=== PATIENT | female | born 1950 | race Caucasian/White ===

== ENCOUNTER 2019-12-16 07:18 | Day surgery (SDC) | payer MEDICARE, BC, SELFPAY ==
[2019-12-13 09:13] VITALS: BMI 35.9
--- NOTE | 2019-12-15 12:58 | HO.ANESPROP2 ---
Documented by User: Casie Huff 12/15/19 13:00 HPI - Anesthesia Eval Consult details Narrative: 69yo F for colonoscopy: screening [facility] Past Medical History Medical History Cancer Diabetes Elevated cholesterol GERD (gastroesophageal reflux disease) Hard of hearing Hx of Lyme disease Thyroid disease Surgical History Surgical History H/O colonoscopy History of esophagogastroduodenoscopy (EGD) History of surgical removal of pilonidal cyst Hx of breast reconstruction Hx of cataract surgery Hx of knee surgery Hx of right mastectomy Social History Social History Smoking Status: Never smoker Use of substances other than those prescribed or required for medical reasons: No Advance Directives Information Provided: No Meds Allergies Allergy/AdvReac Type Severity Reaction Status Date / Time bee pollen [bee stings] Allergy Swelling Verified 12/13/19 09:30 Home Medications Medication Instructions Recorded Confirmed Type atorvastatin 1 tab PO DAILY 12/13/19 12/13/19 History levothyroxine 1 tab PO Q OTHER DAY 12/13/19 12/13/19 History levothyroxine 1 tab PO Q OTHER DAY 12/13/19 12/13/19 History omeprazole 1 cap PO DAILY 12/13/19 12/13/19 History Exam Exam Date and Time: December 15, 2019 1258 Height,Weight and Vital Signs: Height 5 ft 1.5 in Weight 87.543 kg Pertinent Lab Results Pertinent Lab Results: Laboratory Tests 08/19/19 08/19/19 07:10 07:10 WBC 6.9 Hgb 14.4 Hct 43.2 Plt Count 403 H Sodium 139 Potassium 4.6 Chloride 103 BUN 12 Creatinine 0.85 Assessment and Plan Assessment Anesthesia Assessment: Chart Reviewed Documented by User: Idalia Lin 12/16/19 08:43 [facility] Past Medical History Medical History Cancer Diabetes Elevated cholesterol GERD (gastroesophageal reflux disease) Hard of hearing Hx of Lyme disease Thyroid disease Surgical History Surgical History H/O colonoscopy History of esophagogastroduodenoscopy (EGD) History of surgical removal of pilonidal cyst Hx of breast reconstruction Hx of cataract surgery Hx of knee surgery Hx of right mastectomy Social History Social History Smoking Status: Never smoker Use of substances other than those prescribed or required for medical reasons: No Advance Directives Information Provided: No Meds Allergies Allergy/AdvReac Type Severity Reaction Status Date / Time bee pollen [bee stings] Allergy Swelling Verified 12/13/19 09:30 Home Medications Medication Instructions Recorded Confirmed Type atorvastatin 1 tab PO DAILY 12/13/19 12/13/19 History levothyroxine 1 tab PO Q OTHER DAY 12/13/19 12/13/19 History levothyroxine 1 tab PO Q OTHER DAY 12/13/19 12/13/19 History omeprazole 1 cap PO DAILY 12/13/19 12/13/19 History Exam Airway Mallampati Class: I TM Dist: >3cm Neck ROM: Full Denture: Upper Loose/Missing/Broken Teeth: Yes Heart: RRR Lungs: CTA Assessment and Plan Assessment Anesthesia Assessment: Anesthesia Plan Discussed and Chart Reviewed Final Anesthetic Review NPO: Yes ASA Class: II Final Preanesthetic Review: Meds/Allgs Chart Reviewed, Consent Obtained/Reviewed and Anes Risks/Benef Reviewed Patient Risk: Intermediate Procedure Risk: Low Anesthetic Plan Anesthetic Plan: MAC: Disposition: Standard PACU
[2019-12-16 07:51] VITALS: BP 133/92; PULSE 68; RESP 16; TEMP 36.2; O2SAT 99
[2019-12-16 08:00] LABS: Glucose, Whole Blood 102 mg/dL (60-115)
[2019-12-16] MEDS: Lactated Ringers 1,000 ML 100 ML IVCONT (08:09)
[2019-12-16 09:34] VITALS: BP 114/63; PULSE 74; RESP 16; TEMP 36.5; O2SAT 99
--- NOTE | 2019-12-16 09:39 | PM.OP ---
Brief Operative Note Date of procedure: 12/16/19 Pre-op diagnosis: Screening, Hx of adenomas Post-op diagnosis: other (Diverticulosis, Internal Hemorrhoids) Procedure: Colonoscopy to cecum Surgeon: Paul Cyo Anesthesia: MAC Estimated blood loss (mL): 0 Pathology: none sent Condition: stable Disposition: PACU
[2019-12-16 09:47] VITALS: BP 125/73; PULSE 73; RESP 18; O2SAT 99
[2019-12-16 09:56] VITALS: BP 128/77; PULSE 65; RESP 20; O2SAT 99
--- NOTE | 2019-12-16 10:08 | OP_ITS ---
SURGEON: Paul Coy MD INDICATIONS: The patient presents for evaluation of colorectal cancer screening and personal history of tubular adenoma of the colon. Full consent has been obtained from her for this, including risks of bleeding and perforation. PREOPERATIVE DIAGNOSIS: POSTOPERATIVE DIAGNOSIS: PROCEDURE PERFORMED: Colonoscopy to cecum. ESTIMATED BLOOD LOSS: COMPLICATIONS: ANESTHESIA: Monitored anesthesia care. ASSISTANTS: SPECIMENS: PREOPERATIVE DIAGNOSES: Colorectal cancer screening and personal history of tubular adenoma of the colon. POSTOPERATIVE DIAGNOSES: Colorectal cancer screening and personal history of tubular adenoma of the colon, diverticulosis and internal hemorrhoids. DESCRIPTION OF PROCEDURE: The patient was placed in the left lateral decubitus position. The digital rectal exam revealed no abnormalities. The Olympus video pediatric colonoscope was entered into the rectum and advanced to the cecum with the assistance of abdominal wall pressure. Once in the cecum, I did identify normal-appearing cecal pouch with appendiceal orifice and a normal-appearing ileocecal valve. There was transillumination of light deep in the right lower quadrant. The entire cecum and ileocecal valve appeared normal. The scope was slowly withdrawn assessing all mucosal surfaces carefully. Preparation was excellent. I did not visualize any sign of polyps, colitis, nor angiodysplasia. There was a moderate amount of sigmoid diverticulosis. There was a scattering amount of diverticulosis in the ascending colon. In the rectum, scope was retroflexed visualizing internal hemorrhoids, but no other pathology. The rectal mucosa appeared normal. The scope was straightened out and withdrawn from the patient. She tolerated the procedure well and was returned to recovery area in stable condition. IMPRESSION: 1. Diverticulosis. 2. Internal hemorrhoids. PLAN: Given her previous history of tubular adenoma, I would recommend a followup colonoscopy in 5 years for further screening. She will otherwise see me on a p.r.n. basis. MD HODAN Baldwin/BRIAN / [id number]
== END 2019-12-16 10:27 | disposition home or self-care (01) ==
PROVIDERS: PCP Internal Medicine Medical Oncology; Visit Provider Internal Medicine
PROC: 0DJD8ZZ Inspection of Lower Intestinal Tract, Via Natural or Artificial Opening Endoscopic (ICD-10-PCS; CPT 45378; principal; 2019-12-16 08:30)
DX: Z12.11 Encounter for screening for malignant neoplasm of colon (principal); Z86.010 Personal history of colon polyps; K57.30 Diverticulosis of large intestine without perforation or abscess without bleeding; K64.8 Other hemorrhoids; K21.9 Gastro-esophageal reflux disease without esophagitis; E11.9 Type 2 diabetes mellitus without complications; E78.00 Pure hypercholesterolemia, unspecified; Z85.3 Personal history of malignant neoplasm of breast; Z79.899 Other long term (current) drug therapy
CPT/HCPCS: G0105; 82947

== ENCOUNTER 2020-02-29 06:02 | Outpatient (REF) | payer MEDICARE, BC, SELFPAY ==
[2020-02-29 11:16] LABS: MANUAL DIFF FLAG NO
[2020-02-29 11:31] LABS: Basophils Absolute Auto 0.1 X10*3/uL (0.0-0.2); Basophils Percent Auto 0.9 % (0-2); Eosinophils Absolute Auto 0.3 X10*3/uL (0.0-0.4); Eosinophils Percent Auto 4.1 % (0-4); Hemoglobin 14.3 g/dl (12.0-16.0); Imm Gran Abs Auto 0.03 X10*3/uL (0.00-0.03); Imm Gran Pct Auto 0.5 % (0.0-0.4); Lymphocytes Absolute Auto 2.7 X10*3/uL (1.2-4.9); Lymphocytes Percent Auto 41.1 % (20-40); Mean Corpuscular HGB Conc 33.3 g/dl (31.0-35.0); Mean Corpuscular Hemoglobin 31.7 pg (27.0-33.0); Mean Corpuscular Volume 95.3 fL (80-98); Mean Platelet Volume 9.3 fL (9.4-12.3); Monocytes Absolute Auto 0.6 X10*3/uL (0.1-1.2); Monocytes Percent Auto 8.7 % (2-11); Neutrophils Absolute Auto 2.9 X10*3/uL (2.0-8.3); Neutrophils Percent Auto 44.7 % (45-73); Platelet Count 378 X10*3/uL (160-400); Red Blood Count 4.51 X10*6/uL (4.20-5.50); Red Cell Distribution Width 12.4 % (11.0-16.0); White Blood Count 6.5 X10*3/uL (4.8-10.8)
[2020-02-29 12:14] LABS: Free T4 (Free Thyroxine) 0.96 ng/dL (0.71-1.85)
[2020-02-29 12:38] LABS: Alanine Aminotransferase 30 U/L (0-31); Albumin Level 4.4 g/dL (3.5-5.0); Alkaline Phosphatase 89 U/L (39-117); Anion Gap 19 (12-20); Aspartate Amino Transferase 27 U/L (5-31); Bilirubin Total 0.6 mg/dL (0.0-1.0); Blood Urea Nitrogen 14 mg/dL (9-16); Calcium 9.1 mg/dL (8.4-10.2); Carbon Dioxide 21 mmol/L (22-29); Chloride 103 mmol/L (96-108); Cholesterol 189 mg/dL; Estimated Glomerular Filt Rate > 60; Glucose Fasting 121 mg/dL (60-99); HDL Cholesterol 54 mg/dL; LDL Cholesterol Calculated 106 mg/dl; Potassium 5.3 mmol/l (3.3-5.1); Sodium 138 mmol/L (135-145); Total Protein 7.4 g/dL (6.5-8.0); Triglycerides 149 mg/dL
== END 2020-02-29 06:03 | disposition home or self-care (01) ==
LOC: HO.HMGCLDS 06:02
PROVIDERS: PCP Internal Medicine Medical Oncology; Visit Provider Internal Medicine Medical Oncology
DX: M19.90 Unspecified osteoarthritis, unspecified site (principal); E66.01 Morbid (severe) obesity due to excess calories; E78.5 Hyperlipidemia, unspecified
CPT/HCPCS: 36415; 80053; 80061; 84439; 84443; 85025

== ENCOUNTER 2020-07-02 07:01 | Outpatient (REF) | payer MEDICARE, BC, SELFPAY ==
[2020-07-02 11:30] LABS: MANUAL DIFF FLAG NO
[2020-07-02 11:42] LABS: Basophils Absolute Auto 0.1 X10*3/uL (0.0-0.2); Basophils Percent Auto 0.8 % (0-2); Eosinophils Absolute Auto 0.4 X10*3/uL (0.0-0.4); Eosinophils Percent Auto 5.9 % (0-4); Hematocrit 41.6 % (37-47); Hemoglobin 14.1 g/dl (12.0-16.0); Imm Gran Abs Auto 0.02 X10*3/uL (0.00-0.03); Imm Gran Pct Auto 0.3 % (0.0-0.4); Lymphocytes Absolute Auto 2.8 X10*3/uL (1.2-4.9); Lymphocytes Percent Auto 45.1 % (20-40); Mean Corpuscular HGB Conc 33.9 g/dl (31.0-35.0); Mean Corpuscular Hemoglobin 32.6 pg (27.0-33.0); Mean Corpuscular Volume 96.1 fL (80-98); Mean Platelet Volume 9.4 fL (9.4-12.3); Monocytes Absolute Auto 0.5 X10*3/uL (0.1-1.2); Monocytes Percent Auto 8.2 % (2-11); Neutrophils Absolute Auto 2.4 X10*3/uL (2.0-8.3); Neutrophils Percent Auto 39.7 % (45-73); Platelet Count 364 X10*3/uL (160-400); Red Blood Count 4.33 X10*6/uL (4.20-5.50); Red Cell Distribution Width 12.6 % (11.0-16.0); White Blood Count 6.1 X10*3/uL (4.8-10.8)
[2020-07-02 12:06] LABS: Alanine Aminotransferase 28 U/L (0-31); Albumin Level 4.3 g/dL (3.5-5.0); Alkaline Phosphatase 92 U/L (39-117); Anion Gap 15 (12-20); Aspartate Amino Transferase 26 U/L (5-31); Bilirubin Total 0.8 mg/dL (0.0-1.0); Blood Urea Nitrogen 14 mg/dL (9-16); Calcium 9.5 mg/dL (8.4-10.2); Carbon Dioxide 26 mmol/L (22-29); Chloride 105 mmol/L (96-108); Cholesterol 187 mg/dL; Estimated Glomerular Filt Rate > 60; Glucose Fasting 120 mg/dL (60-99); HDL Cholesterol 60 mg/dL; LDL Cholesterol Calculated 104 mg/dl; Potassium 4.7 mmol/L (3.3-5.1); Sodium 141 mmol/L (135-145); Triglycerides 117 mg/dL
[2020-07-02 12:13] LABS: Free T4 (Free Thyroxine) 0.96 ng/dL (0.71-1.85); Thyroid Stimulating Hormone 2.14 uIU/mL (0.32-4.0)
== END 2020-07-02 07:02 | disposition home or self-care (01) ==
LOC: HO.HMGCLDS 07:01
PROVIDERS: PCP Internal Medicine Medical Oncology; Visit Provider Internal Medicine Medical Oncology
DX: M19.90 Unspecified osteoarthritis, unspecified site (principal); K21.9 Gastro-esophageal reflux disease without esophagitis; E66.01 Morbid (severe) obesity due to excess calories; E03.9 Hypothyroidism, unspecified
CPT/HCPCS: 36415; 80053; 80061; 84439; 84443; 85025

== ENCOUNTER 2020-07-13 08:39 | Outpatient (REF) | payer MEDICARE, BC, SELFPAY ==
--- NOTE | ~2020-07-13 | XR_ITS ---
EXAMINATION: XR CHEST CLINICAL INFORMATION: Dyspnea on exertion. COMPARISON: Chest 07/04/2017 TECHNIQUE: 2 views of the chest were obtained. FINDINGS: The lungs are expanded and clear. The heart size and vascularity is normal. There is moderate spondylosis dorsal spine. XR/XR chest 2V IMPRESSION: Unremarkable chest examination.
== END 2020-07-13 08:40 | disposition home or self-care (01) ==
LOC: HO.HMGCX 08:39
PROVIDERS: PCP Internal Medicine Medical Oncology; Visit Provider Internal Medicine Medical Oncology
DX: R06.09 Other forms of dyspnea (principal)
CPT/HCPCS: 71046

== ENCOUNTER 2020-08-01 08:40 | Outpatient (REF) | payer MEDICARE, BC, SELFPAY ==
--- NOTE | 2020-08-01 09:00 | PFT_ITS ---
Forced vital capacity, FEV1, VDE51-74, and MVV are all normal. Post bronchodilator therapy, there is no change. Total lung capacity normal. Residual volume slightly decreased. Diffusion capacity normal. CONCLUSION: Normal pulmonary function test. There is no evidence of obstructive or restrictive pulmonary disorder. Jayson Whittaker MD MSB/MODL / [id number]
== END 2020-08-01 08:41 | disposition home or self-care (01) ==
LOC: HO.RESP 08:40
PROVIDERS: PCP Internal Medicine Medical Oncology; Visit Provider Internal Medicine Medical Oncology
DX: R06.09 Other forms of dyspnea (principal)
CPT/HCPCS: 94060; 94727; 94729

== ENCOUNTER → 2020-09-18 08:14 | Outpatient (REF) | payer MEDICARE, BC, SELFPAY ==
--- NOTE | 2020-09-18 08:30 | CA_ITS ---
Transthoracic Echocardiogram Patient (Last, First, Middle): Khalida Keating L Gender: Female Date of : 1950 Age: 70 Procedure Date: 09/18/2020 Procedure Type: Transthoracic Echocardiogram Location: OP Height: 157.48 cm Weight: 88. kg BSA: 1.89 m2 Heart Rate: bpm BP: 124 / 80 mmHg Development Team Lead: Referring MD: Paul Vela MD Symptoms: R06.09 RUIZ Study Quality: Fair ECG Rhythm: Sinus Conclusions: - The left ventricular systolic function is normal. The visually estimated ejection fraction is between 60-65%. - There is mild calcification of the aortic valve. - There is mild mitral annular calcification. - No obvious valvular pathology seen on this study. Findings Left Ventricle Normal left ventricular cavity size. There is mildly increased left ventricular wall thickness. The left ventricular systolic function is normal. The visually estimated ejection fraction is between 60-65%. There is no evidence of regional wall motion abnormalities. E/E prime ratio is between 8 and 15 consistent with indeterminate filling pressures. Evidence suggests grade I (mild) diastolic dysfunction. Right Ventricle Normal right ventricular cavity size and systolic function. Atria The left atrium is normal in size. The right atrium is normal in size. Aortic Valve The aortic valve was not well visualized. There is mild calcification of the aortic valve. There is no aortic valve stenosis. There is no aortic valve regurgitation. Mitral Valve There is mild mitral annular calcification. There is no mitral valve regurgitation. There is no mitral valve stenosis. Pulmonic Valve The pulmonic valve was not well visualized. Tricuspid Valve There is trace tricuspid valve regurgitation. The pulmonary artery systolic pressure is normal. Great Vessels The asc aorta is normal in size. Venous The inferior vena cava is normal in size and collapses greater than 50% with inspiration. Pericardium/Pleural There is no evidence of pericardial effusion. Prior Study Comparison No prior study available for comparison. Recommendations, Care & Conclusions No obvious valvular pathology seen on this study. Measurements 2D Linear Measurements IVSd: 1.11 0.6-0.9/0.6-1.0 cm LVIDd: 3.91 3.9-5.3/4.2-5.9 cm LVIDd Index: 2.07 2.4-3.2/2.2-3.1 cm/m2 LVIDs: 2.43 2.0-3.6 cm LVPWd: 1.14 0.7-1.1 cm Ao Root: 3.10 2.1-3.5 cm LA Diam: 2.80 2.7-3.8/3.0-4.0 cm LAIDs Index: 1.48 1.5-2.3 cm/m2 LV Mass: 180.93 67-162/88-224 g LV Mass Index: 95.73 43-95/49-115 g/m2 LVOT Diam: 2.00 3.0+(-)1.3 cm Mitral Valve MV Pk E: 0.57 MV PK A: 0.76 MV Decel Time: 232.00 E/A: 0.70 E'Lateral: 5.50 E'Medial: 4.57 E/E' Med: 12.50 E/E' Lat: 10.40 PHT: 68.00 MVA PHT: 3.24 Decel Emmet: 2.49 Aortic Valve AoV Pk Segundo: 1.02 AoV Mn Segundo: 0.71 AoV VTI: 0.22 AoV Pk Grad: 4.00 Aov Mn Grad: 2.00 KATHY Cont.VTI: 2.17 LVOT LVOT Pk Segundo: 0.57 LVOT Mn Segundo: 0.38 LVOT VTI: 0.15 LVOT Pk Grad: 1.00 LVOT Mn Grad: 1.00 LVOT Diam: 2.00 LVOT Area: 3.14 Diastolic Function MV Pk E: 0.57 MV Pk A: 0.76 E/A: 0.70 E'Medial: 4.57 E/E' Med: 12.50 E' Laterial: 5.50 E/E' Lat: 10.40 Tricuspid Valve TR Pk Segundo: 1.81 TR Pk Grad: 13.00 RA Press: 3.00 RVSP: 16.00 Great Vessels Aorta Ao Root-2D: 3.10 2.0-3.7 cm Pulmonary Valve PV Pk Segundo: 1.00 Peak PV Grad: 4.00 Updated in Other Vendor System with Status of Final Jae Suh MD electronically signed on 09/20/2020 12:17:45 PM with status of Final
== END ==
LOC: HO.CARD 08:14
PROVIDERS: PCP Internal Medicine Medical Oncology; Visit Provider Internal Medicine Medical Oncology
DX: R06.09 Other forms of dyspnea (principal)
CPT/HCPCS: 93306

== ENCOUNTER 2020-11-21 06:15 | Outpatient (REF) | payer MEDICARE, BC, SELFPAY ==
[2020-11-21 11:28] LABS: MANUAL DIFF FLAG NO
[2020-11-21 11:40] LABS: Basophils Absolute Auto 0.1 X10*3/uL (0.0-0.2); Basophils Percent Auto 0.7 % (0-2); Eosinophils Absolute Auto 0.3 X10*3/uL (0.0-0.4); Eosinophils Percent Auto 4.7 % (0-4); Hematocrit 41.5 % (37-47); Imm Gran Abs Auto 0.04 X10*3/uL (0.00-0.03); Imm Gran Pct Auto 0.6 % (0.0-0.4); Lymphocytes Absolute Auto 2.6 X10*3/uL (1.2-4.9); Lymphocytes Percent Auto 35.8 % (20-40); Mean Corpuscular HGB Conc 33.7 g/dl (31.0-35.0); Mean Corpuscular Hemoglobin 31.8 pg (27.0-33.0); Mean Corpuscular Volume 94.3 fL (80-98); Mean Platelet Volume 9.6 fL (9.4-12.3); Monocytes Absolute Auto 0.7 X10*3/uL (0.1-1.2); Neutrophils Absolute Auto 3.5 X10*3/uL (2.0-8.3); Neutrophils Percent Auto 48.2 % (45-73); Platelet Count 380 X10*3/uL (160-400); Red Cell Distribution Width 12.2 % (11.0-16.0); White Blood Count 7.2 X10*3/uL (4.8-10.8)
[2020-11-21 12:03] LABS: Alanine Aminotransferase 29 U/L (0-31); Albumin Level 4.3 g/dL (3.5-5.0); Alkaline Phosphatase 89 U/L (39-117); Anion Gap 15 (12-20); Aspartate Amino Transferase 25 U/L (5-31); Bilirubin Total 0.7 mg/dL (0.0-1.0); Blood Urea Nitrogen 11 mg/dL (9-16); Calcium 9.5 mg/dL (8.4-10.2); Carbon Dioxide 25 mmol/L (22-29); Chloride 103 mmol/L (96-108); Cholesterol 171 mg/dL; Estimated Glomerular Filt Rate > 60; Glucose Fasting 137 mg/dL (60-99); HDL Cholesterol 52 mg/dL; LDL Cholesterol Calculated 100 mg/dl; Sodium 138 mmol/L (135-145); Triglycerides 99 mg/dL
[2020-11-21 12:25] LABS: Free T4 (Free Thyroxine) 0.88 ng/dL (0.71-1.85); Thyroid Stimulating Hormone 2.02 uIU/mL (0.32-4.0)
== END 2020-11-21 06:16 | disposition home or self-care (01) ==
LOC: HO.HMGCLDS 06:15
PROVIDERS: PCP Internal Medicine Medical Oncology; Visit Provider Internal Medicine Medical Oncology
DX: E66.01 Morbid (severe) obesity due to excess calories (principal); E03.9 Hypothyroidism, unspecified; E78.5 Hyperlipidemia, unspecified
CPT/HCPCS: 36415; 80053; 80061; 84439; 84443; 85025

== ENCOUNTER 2021-01-18 07:52 | Outpatient (REF) | payer MEDICARE, BC, SELFPAY ==
--- NOTE | ~2021-01-18 | US_ITS ---
EXAMINATION: US ABDOMEN COMPLETE CLINICAL INFORMATION: Abdominal pain. GERD. COMPARISON: None TECHNIQUE: Real-time imaging of the abdominal viscera. Slight technical limitation secondary to patient body habitus and overlying bowel gas. FINDINGS: PANCREAS: Visualized portions of the pancreas are unremarkable, the tail is not well visualized. ABDOMINAL AORTA: The proximal, mid, and distal segments are normal in caliber. INFERIOR VENA CAVA: Visualized portions are normal. LIVER: The liver is normal in size. The liver contour is normal. Increased hepatic echogenicity suggesting hepatic steatosis with regions of focal fatty sparing adjacent to the gallbladder fossa. No focal hepatic lesion. There is no intrahepatic biliary duct dilatation seen. GALLBLADDER: Normal. The gallbladder is physiologically distended without evidence of stones, sludge, polyps, wall thickening or pericholecystic fluid. Sonographic Nieves sign is negative. COMMON BILE DUCT: Normal in caliber measuring 0.5 cm in diameter. RIGHT KIDNEY: Normal. No hydronephrosis. No renal calculi or focal parenchymal lesions. The kidney measures 12.1 cm in maximum dimension. LEFT KIDNEY: Normal. No hydronephrosis. No renal calculi or focal parenchymal lesions. The kidney measures 11.3 cm in maximum dimension. SPLEEN: Normal. The spleen measures 8.7 cm in maximum dimension. FREE FLUID: None. US/US abdomen complete IMPRESSION: Increased hepatic echogenicity suggesting hepatic steatosis with regions of focal fatty sparing adjacent to the gallbladder fossa.
== END 2021-01-18 07:53 | disposition home or self-care (01) ==
LOC: HO.US 07:52
PROVIDERS: PCP Internal Medicine Medical Oncology; Visit Provider Internal Medicine
DX: R10.13 Epigastric pain (principal); K21.9 Gastro-esophageal reflux disease without esophagitis
CPT/HCPCS: 76700

== ENCOUNTER 2021-02-26 06:22 | Outpatient (REF) | payer MEDICARE, BC, SELFPAY ==
[2021-02-26 11:39] LABS: MANUAL DIFF FLAG NO
[2021-02-26 11:45] LABS: Basophils Absolute Auto 0.1 X10*3/uL (0.0-0.2); Basophils Percent Auto 0.9 % (0-2); Eosinophils Absolute Auto 0.3 X10*3/uL (0.0-0.4); Eosinophils Percent Auto 4.5 % (0-4); Hematocrit 42.3 % (37.0-47.0); Hemoglobin 14.3 g/dl (12.0-16.0); Imm Gran Abs Auto 0.03 X10*3/uL (0.00-0.03); Imm Gran Pct Auto 0.5 % (0.0-0.4); Lymphocytes Absolute Auto 2.7 X10*3/uL (1.2-4.9); Mean Corpuscular HGB Conc 33.8 g/dl (31.0-35.0); Mean Corpuscular Hemoglobin 32.2 pg (27.0-33.0); Mean Corpuscular Volume 95.3 fL (80.0-98.0); Mean Platelet Volume 9.8 fL (9.4-12.3); Monocytes Absolute Auto 0.7 X10*3/uL (0.1-1.2); Monocytes Percent Auto 10.8 % (2-11); Neutrophils Absolute Auto 2.6 x10*3/uL (2.0-8.3); Neutrophils Percent Auto 41.3 % (45-73); Platelet Count 352 X10*3/uL (160-400); Red Blood Count 4.44 X10*6/uL (4.20-5.50); Red Cell Distribution Width 12.4 % (11.0-16.0); White Blood Count 6.4 X10*3/uL (4.8-10.8)
[2021-02-26 11:51] LABS: Estimated Average Glucose 126 mg/dL
[2021-02-26 12:05] LABS: Alanine Aminotransferase 32 U/L (0-31); Albumin Level 4.3 g/dL (3.5-5.0); Alkaline Phosphatase 91 U/L (39-117); Anion Gap 11 (12-20); Aspartate Amino Transferase 28 U/L (5-31); Bilirubin Total 0.6 mg/dL (0.0-1.0); Blood Urea Nitrogen 8 mg/dL (9-16); Calcium 9.8 mg/dL (8.4-10.2); Carbon Dioxide 28 mmol/L (22-29); Chloride 105 mmol/L (96-108); Cholesterol 177 mg/dL; Estimated Glomerular Filt Rate > 60; Glucose Fasting 126 mg/dL (60-99); HDL Cholesterol 55 mg/dL; LDL Cholesterol Calculated 102 mg/dl; Potassium 5.2 mmol/L (3.3-5.1); Sodium 139 mmol/L (135-145); Total Protein 7.2 g/dL (6.5-8.0); Triglycerides 101 mg/dL
[2021-02-26 12:32] LABS: Free T4 (Free Thyroxine) 0.94 ng/dL (0.71-1.85); Thyroid Stimulating Hormone 1.76 uIU/mL (0.32-4.0)
== END 2021-02-26 06:23 | disposition home or self-care (01) ==
LOC: HO.HMGCLDS 06:22
PROVIDERS: PCP Internal Medicine Medical Oncology; Visit Provider Internal Medicine Medical Oncology
DX: M19.90 Unspecified osteoarthritis, unspecified site (principal); E66.01 Morbid (severe) obesity due to excess calories; E03.9 Hypothyroidism, unspecified; E78.01 Familial hypercholesterolemia
CPT/HCPCS: 36415; 80053; 80061; 83036; 84439; 84443; 85025

== ENCOUNTER 2021-05-09 06:03 | Outpatient (REF) | payer MEDICARE, BC, SELFPAY ==
[2021-05-09 11:16] LABS: MANUAL DIFF FLAG NO
[2021-05-09 11:22] LABS: Basophils Absolute Auto 0.1 X10*3/uL (0.0-0.2); Basophils Percent Auto 0.6 % (0-2); Eosinophils Absolute Auto 0.3 X10*3/uL (0.0-0.4); Eosinophils Percent Auto 3.1 % (0-4); Hematocrit 41.5 % (37.0-47.0); Hemoglobin 13.7 g/dl (12.0-16.0); Lymphocytes Absolute Auto 2.7 X10*3/uL (1.2-4.9); Lymphocytes Percent Auto 28.3 % (20-40); Mean Corpuscular Hemoglobin 31.3 pg (27.0-33.0); Mean Corpuscular Volume 94.7 fL (80.0-98.0); Mean Platelet Volume 9.5 fL (9.4-12.3); Monocytes Absolute Auto 1.1 X10*3/uL (0.1-1.2); Monocytes Percent Auto 10.9 % (2-11); Neutrophils Absolute Auto 5.4 x10*3/uL (2.0-8.3); Neutrophils Percent Auto 56.1 % (45-73); Platelet Count 405 X10*3/uL (160-400); Red Blood Count 4.38 X10*6/uL (4.20-5.50); Red Cell Distribution Width 12.3 % (11.0-16.0); White Blood Count 9.6 X10*3/uL (4.8-10.8)
[2021-05-09 11:49] LABS: Alanine Aminotransferase 21 U/L (0-31); Albumin Level 4.2 g/dL (3.5-5.0); Alkaline Phosphatase 87 U/L (39-117); Anion Gap 15 (12-20); Aspartate Amino Transferase 18 U/L (5-31); Bilirubin Total 0.9 mg/dL (0.0-1.0); Blood Urea Nitrogen 15 mg/dL (9-16); Calcium 9.6 mg/dL (8.4-10.2); Carbon Dioxide 25 mmol/L (22-29); Chloride 104 mmol/L (96-108); Estimated Glomerular Filt Rate > 60; Glucose Fasting 153 mg/dL (60-99); Potassium 5.2 mmol/L (3.3-5.1); Sodium 139 mmol/L (135-145); Total Protein 7.2 g/dL (6.5-8.0)
[2021-05-09 11:55] LABS: Thyroid Stimulating Hormone 2.39 uIU/mL (0.32-4.0)
== END 2021-05-09 06:04 | disposition home or self-care (01) ==
LOC: HO.HMGCLDS 06:03
PROVIDERS: Visit Provider Internal Medicine Medical Oncology
DX: M19.90 Unspecified osteoarthritis, unspecified site (principal); K21.9 Gastro-esophageal reflux disease without esophagitis; E03.9 Hypothyroidism, unspecified
CPT/HCPCS: 36415; 80053; 84443; 85025

== ENCOUNTER 2021-06-10 09:40 | Outpatient (REF) | payer MEDICARE, BC, SELFPAY ==
[2021-06-10 10:27] LABS: Estimated Average Glucose 128 mg/dL; Hemoglobin A1c % 6.1 %
== END 2021-06-10 09:41 | disposition home or self-care (01) ==
LOC: HO.LAB 09:40
PROVIDERS: PCP Internal Medicine Medical Oncology; Visit Provider Internal Medicine Medical Oncology
DX: E11.9 Type 2 diabetes mellitus without complications (principal)
CPT/HCPCS: 36415; 83036

== ENCOUNTER 2021-10-22 06:03 | Outpatient (REF) | payer MEDICARE, BC, SELFPAY ==
[2021-10-22 11:28] LABS: MANUAL DIFF FLAG NO
[2021-10-22 11:37] LABS: Basophils Absolute Auto 0.1 X10*3/uL (0.0-0.2); Basophils Percent Auto 0.9 % (0-2); Eosinophils Absolute Auto 0.3 X10*3/uL (0.0-0.4); Eosinophils Percent Auto 4.6 % (0-4); Hematocrit 41.9 % (37.0-47.0); Hemoglobin 14.2 g/dl (12.0-16.0); Imm Gran Abs Auto 0.04 X10*3/uL (0.00-0.03); Imm Gran Pct Auto 0.6 % (0.0-0.4); Lymphocytes Absolute Auto 2.5 X10*3/uL (1.2-4.9); Lymphocytes Percent Auto 35.6 % (20-40); Mean Corpuscular HGB Conc 33.9 g/dl (31.0-35.0); Mean Corpuscular Hemoglobin 31.3 pg (27.0-33.0); Mean Corpuscular Volume 92.5 fL (80.0-98.0); Mean Platelet Volume 9.5 fL (9.4-12.3); Monocytes Absolute Auto 0.7 X10*3/uL (0.1-1.2); Monocytes Percent Auto 9.4 % (2-11); Neutrophils Absolute Auto 3.4 x10*3/uL (2.0-8.3); Neutrophils Percent Auto 48.9 % (45-73); Platelet Count 376 X10*3/uL (160-400); Red Blood Count 4.53 X10*6/uL (4.20-5.50); Red Cell Distribution Width 12.7 % (11.0-16.0); White Blood Count 6.9 X10*3/uL (4.8-10.8)
[2021-10-22 12:10] LABS: Estimated Average Glucose 134 mg/dL; Hemoglobin A1c % 6.3 %
[2021-10-22 12:11] LABS: Alanine Aminotransferase 27 U/L (0-31); Albumin Level 4.4 g/dL (3.5-5.0); Alkaline Phosphatase 78 U/L (39-117); Anion Gap 15 (12-20); Aspartate Amino Transferase 24 U/L (5-31); Bilirubin Total 0.9 mg/dL (0.0-1.0); Blood Urea Nitrogen 16 mg/dL (9-16); Calcium 9.7 mg/dL (8.4-10.2); Carbon Dioxide 25 mmol/L (22-29); Chloride 103 mmol/L (96-108); Cholesterol 175 mg/dL; Estimated Glomerular Filt Rate 56; Glucose Random 145 mg/dL (60-115); HDL Cholesterol 52 mg/dL; LDL Cholesterol Calculated 96 mg/dl; Potassium 4.7 mmol/L (3.3-5.1); Sodium 138 mmol/L (135-145); Total Protein 7.1 g/dL (6.5-8.0); Triglycerides 135 mg/dL
[2021-10-22 12:37] LABS: Creatinine Urine 59.01 mg/dL; Microalbum/Creatinine Ratio Ur 25.4 ug/mg cr
== END 2021-10-22 06:04 | disposition home or self-care (01) ==
LOC: HO.HMGCLDS 06:03
PROVIDERS: PCP Internal Medicine Medical Oncology; Visit Provider Internal Medicine Medical Oncology
DX: E03.9 Hypothyroidism, unspecified (principal); E78.5 Hyperlipidemia, unspecified; E11.9 Type 2 diabetes mellitus without complications
CPT/HCPCS: 36415; 80053; 80061; 82043; 83036; 85025

== ENCOUNTER 2022-04-15 06:07 | Outpatient (REF) | payer MEDICARE, BC, SELFPAY ==
[2022-04-15 11:18] LABS: MANUAL DIFF FLAG NO
[2022-04-15 11:21] LABS: Basophils Absolute Auto 0.1 X10*3/uL (0.0-0.2); Basophils Percent Auto 0.7 % (0-2); Eosinophils Absolute Auto 0.2 X10*3/uL (0.0-0.4); Eosinophils Percent Auto 2.5 % (0-4); Hematocrit 41.1 % (37.0-47.0); Hemoglobin 14.1 g/dl (12.0-16.0); Imm Gran Abs Auto 0.04 X10*3/uL (0.00-0.03); Imm Gran Pct Auto 0.5 % (0.0-0.4); Lymphocytes Absolute Auto 2.2 X10*3/uL (1.2-4.9); Lymphocytes Percent Auto 25.2 % (20-40); Mean Corpuscular HGB Conc 34.3 g/dl (31.0-35.0); Mean Corpuscular Hemoglobin 32.6 pg (27.0-33.0); Mean Corpuscular Volume 95.1 fL (80.0-98.0); Mean Platelet Volume 9.6 fL (9.4-12.3); Monocytes Absolute Auto 0.8 X10*3/uL (0.1-1.2); Monocytes Percent Auto 9.1 % (2-11); Neutrophils Absolute Auto 5.4 x10*3/uL (2.0-8.3); Platelet Count 370 X10*3/uL (160-400); Red Blood Count 4.32 X10*6/uL (4.20-5.50); Red Cell Distribution Width 12.3 % (11.0-16.0); White Blood Count 8.6 X10*3/uL (4.8-10.8)
[2022-04-15 11:43] LABS: Alanine Aminotransferase 31 U/L (0-31); Albumin Level 4.3 g/dL (3.5-5.0); Alkaline Phosphatase 85 U/L (39-117); Anion Gap 16 (12-20); Aspartate Amino Transferase 24 U/L (5-31); Bilirubin Total 0.7 mg/dL (0.0-1.0); Blood Urea Nitrogen 13 mg/dL (9-16); Calcium 9.7 mg/dL (8.4-10.2); Carbon Dioxide 23 mmol/L (22-29); Chloride 102 mmol/L (96-108); Cholesterol 185 mg/dL; Estimated Glomerular Filt Rate > 60; Glucose Fasting 144 mg/dL (60-99); HDL Cholesterol 51 mg/dL; LDL Cholesterol Calculated 100 mg/dl; Potassium 4.7 mmol/L (3.3-5.1); Sodium 136 mmol/L (135-145); Total Protein 6.8 g/dL (6.5-8.0); Triglycerides 172 mg/dL
[2022-04-15 11:57] LABS: Estimated Average Glucose 143 mg/dL; Hemoglobin A1c % 6.6 %
[2022-04-15 12:06] LABS: Free T4 (Free Thyroxine) 0.86 ng/dL (0.71-1.85); Thyroid Stimulating Hormone 2.01 uIU/mL (0.32-4.0)
[2022-04-15 12:41] LABS: Creatinine Urine 56.35 mg/dL
== END 2022-04-15 06:08 | disposition home or self-care (01) ==
LOC: HO.HMGCLDS 06:07
PROVIDERS: PCP Internal Medicine Medical Oncology; Visit Provider Internal Medicine Medical Oncology
DX: Z00.00 Encounter for general adult medical examination without abnormal findings (principal); E66.01 Morbid (severe) obesity due to excess calories; E78.5 Hyperlipidemia, unspecified; E11.9 Type 2 diabetes mellitus without complications
CPT/HCPCS: 36415; 80053; 80061; 82043; 83036; 84439; 84443; 85025

== ENCOUNTER 2022-08-29 06:04 | Outpatient (REF) | payer MEDICARE, BC, SELFPAY ==
[2022-08-29 11:32] LABS: MANUAL DIFF FLAG NO
[2022-08-29 11:50] LABS: Basophils Absolute Auto 0.1 X10*3/uL (0.0-0.2); Basophils Percent Auto 0.9 % (0-2); Eosinophils Absolute Auto 0.4 X10*3/uL (0.0-0.4); Eosinophils Percent Auto 5.2 % (0-4); Hematocrit 43.1 % (37.0-47.0); Hemoglobin 14.4 g/dl (12.0-16.0); Imm Gran Abs Auto 0.04 X10*3/uL (0.00-0.03); Imm Gran Pct Auto 0.5 % (0.0-0.4); Lymphocytes Absolute Auto 2.8 X10*3/uL (1.2-4.9); Lymphocytes Percent Auto 37.1 % (20-40); Mean Corpuscular HGB Conc 33.4 g/dl (31.0-35.0); Mean Corpuscular Hemoglobin 31.9 pg (27.0-33.0); Mean Corpuscular Volume 95.6 fL (80.0-98.0); Mean Platelet Volume 9.5 fL (9.4-12.3); Monocytes Absolute Auto 0.8 X10*3/uL (0.1-1.2); Monocytes Percent Auto 10.1 % (2-11); Neutrophils Absolute Auto 3.5 x10*3/uL (2.0-8.3); Neutrophils Percent Auto 46.2 % (45-73); Platelet Count 372 X10*3/uL (160-400); Red Blood Count 4.51 X10*6/uL (4.20-5.50); Red Cell Distribution Width 12.3 % (11.0-16.0); White Blood Count 7.6 X10*3/uL (4.8-10.8)
[2022-08-29 12:46] LABS: Alanine Aminotransferase 31 U/L (0-31); Albumin Level 4.3 g/dL (3.5-5.0); Alkaline Phosphatase 84 U/L (39-117); Anion Gap 14 (12-20); Aspartate Amino Transferase 26 U/L (5-31); Bilirubin Total 0.9 mg/dL (0.0-1.0); Blood Urea Nitrogen 13 mg/dL (9-16); Calcium 9.9 mg/dL (8.4-10.2); Carbon Dioxide 25 mmol/L (22-29); Chloride 103 mmol/L (96-108); Cholesterol 168 mg/dL; Estimated Glomerular Filt Rate > 60; Glucose Fasting 140 mg/dL (60-99); HDL Cholesterol 53 mg/dL; LDL Cholesterol Calculated 92 mg/dl; Potassium 4.8 mmol/L (3.3-5.1); Sodium 137 mmol/L (135-145); Total Protein 7.2 g/dL (6.5-8.0); Triglycerides 119 mg/dL
[2022-08-29 12:53] LABS: Free T4 (Free Thyroxine) 0.96 ng/dL (0.71-1.85); Thyroid Stimulating Hormone 2.26 uIU/mL (0.32-4.0)
== END 2022-08-29 06:05 | disposition home or self-care (01) ==
LOC: HO.HMGCLDS 06:04
PROVIDERS: PCP Internal Medicine Medical Oncology; Visit Provider Internal Medicine Medical Oncology
DX: E66.01 Morbid (severe) obesity due to excess calories (principal); E03.9 Hypothyroidism, unspecified; E78.5 Hyperlipidemia, unspecified; E11.9 Type 2 diabetes mellitus without complications
CPT/HCPCS: 36415; 80053; 80061; 84439; 84443; 85025

== ENCOUNTER 2022-12-09 06:54 | Outpatient (REF) | payer MEDICARE, BC, SELFPAY ==
[2022-12-09 11:33] LABS: MANUAL DIFF FLAG NO
[2022-12-09 11:56] LABS: Basophils Absolute Auto 0.1 X10*3/uL (0.0-0.2); Basophils Percent Auto 1.2 % (0-2); Eosinophils Absolute Auto 0.3 X10*3/uL (0.0-0.4); Eosinophils Percent Auto 3.8 % (0-4); Hematocrit 43.3 % (37.0-47.0); Hemoglobin 14.6 g/dl (12.0-16.0); Imm Gran Abs Auto 0.03 X10*3/uL (0.00-0.03); Imm Gran Pct Auto 0.4 % (0.0-0.4); Lymphocytes Absolute Auto 2.1 X10*3/uL (1.2-4.9); Lymphocytes Percent Auto 30.4 % (20-40); Mean Corpuscular HGB Conc 33.7 g/dl (31.0-35.0); Mean Platelet Volume 9.3 fL (9.4-12.3); Monocytes Absolute Auto 0.6 X10*3/uL (0.1-1.2); Monocytes Percent Auto 8.8 % (2-11); Neutrophils Absolute Auto 3.8 x10*3/uL (2.0-8.3); Neutrophils Percent Auto 55.4 % (45-73); Platelet Count 369 X10*3/uL (160-400); Red Blood Count 4.56 X10*6/uL (4.20-5.50); Red Cell Distribution Width 12.4 % (11.0-16.0); White Blood Count 6.9 X10*3/uL (4.8-10.8)
[2022-12-09 12:13] LABS: Alanine Aminotransferase 29 U/L (0-31); Albumin Level 4.6 g/dL (3.5-5.0); Alkaline Phosphatase 79 U/L (39-117); Anion Gap 15 (12-20); Aspartate Amino Transferase 28 U/L (5-31); Bilirubin Total 0.9 mg/dL (0.0-1.0); Blood Urea Nitrogen 11 mg/dL (9-16); Calcium 9.8 mg/dL (8.4-10.2); Carbon Dioxide 25 mmol/L (22-29); Chloride 102 mmol/L (96-108); Cholesterol 168 mg/dL (<200); Estimated Glomerular Filt Rate > 60; Glucose Fasting 139 mg/dL (60-99); HDL Cholesterol 54 mg/dL (>40); LDL Cholesterol Calculated 84 mg/dL (<100); Potassium 4.8 mmol/L (3.3-5.1); Sodium 137 mmol/L (135-145); Total Protein 7.5 g/dL (6.5-8.0); Triglycerides 150 mg/dL (<150)
== END 2022-12-09 06:55 | disposition home or self-care (01) ==
LOC: HO.HMGCLDS 06:54
PROVIDERS: PCP Internal Medicine Medical Oncology; Visit Provider Internal Medicine Medical Oncology
DX: E66.01 Morbid (severe) obesity due to excess calories (principal); K22.70 Barrett's esophagus without dysplasia; E78.5 Hyperlipidemia, unspecified; E11.9 Type 2 diabetes mellitus without complications
CPT/HCPCS: 36415; 80053; 80061; 85025

== ENCOUNTER 2022-12-19 10:38 | Outpatient (REF) | payer MEDICARE, BC, SELFPAY ==
--- NOTE | ~2022-12-19 | XR_ITS ---
EXAMINATION: Lumbar spine and coccyx and sacrum x-rays CLINICAL INFORMATION: Pain COMPARISON: Previous lumbar spine x-ray most recent April 2012 TECHNIQUE: 3 views of the sacrum and coccyx and 5 views of the lumbar spine FINDINGS: Lumbar spine: There is curvature of the lower lumbar spine to the right. Bone alignment is otherwise normal. No fracture or dislocation. Degenerative spondylosis at T12-L1 and L1-L2. Mild disc space narrowing at L5 S1. Disc spaces are otherwise normal. Lower lumbar spine facet arthritis. No pars defect. Atherosclerotic disease. Sacrum and coccyx: Sclerosis along both sides of the sacroiliac joints suggestive of bilateral symmetric sacroiliitis. Increased from 2013 exam. No erosive changes. No fracture or dislocation. XR/XR lumbar spine 4V min IMPRESSION: Lumbar spine: Degenerative changes. Sacrum and coccyx: Bilateral sacroiliitis
--- NOTE | ~2022-12-19 | XR_ITS ---
EXAMINATION: Lumbar spine and coccyx and sacrum x-rays CLINICAL INFORMATION: Pain COMPARISON: Previous lumbar spine x-ray most recent April 2012 TECHNIQUE: 3 views of the sacrum and coccyx and 5 views of the lumbar spine FINDINGS: Lumbar spine: There is curvature of the lower lumbar spine to the right. Bone alignment is otherwise normal. No fracture or dislocation. Degenerative spondylosis at T12-L1 and L1-L2. Mild disc space narrowing at L5 S1. Disc spaces are otherwise normal. Lower lumbar spine facet arthritis. No pars defect. Atherosclerotic disease. Sacrum and coccyx: Sclerosis along both sides of the sacroiliac joints suggestive of bilateral symmetric sacroiliitis. Increased from 2013 exam. No erosive changes. No fracture or dislocation. XR/XR sacrum coccyx min 2V IMPRESSION: Lumbar spine: Degenerative changes. Sacrum and coccyx: Bilateral sacroiliitis
== END 2022-12-19 10:39 | disposition home or self-care (01) ==
LOC: HO.XRAY 10:38
PROVIDERS: PCP Internal Medicine Medical Oncology; Visit Provider Internal Medicine Medical Oncology
DX: M54.50 Low back pain, unspecified (principal); M53.3 Sacrococcygeal disorders, not elsewhere classified
CPT/HCPCS: 72110; 72220

== ENCOUNTER 2022-12-22 08:56 | Outpatient (REF) | payer MEDICARE, BC, SELFPAY ==
[2022-12-22 12:13] LABS: Appearance Urine Clear; Color Urine Yellow; Glucose Urine UA Negative (Negative); Leukocyte Esterase Urine Trace (Negative); Nitrite Urine Negative (Negative); UMIC TRIGGER UA YES; Urine Blood Negative (Negative); Urine Ketones Negative (Negative); Urine Protein Negative (Neg-Trace)
[2022-12-22 12:19] LABS: Estimated Average Glucose 126 mg/dL
[2022-12-22 12:20] LABS: Bacteria Urine 1+ (None Seen); Hyaline Casts Urine 0-2 /LPF (0-2); RBC Urine 0-2 /HPF (0-2); Squamous Epithelial Cell Urine >20 /HPF (0-2)
== END 2022-12-22 08:57 | disposition home or self-care (01) ==
LOC: HO.HMGCLDS 08:56
PROVIDERS: PCP Internal Medicine Medical Oncology; Visit Provider Internal Medicine Medical Oncology
DX: E11.9 Type 2 diabetes mellitus without complications (principal); R39.9 Unspecified symptoms and signs involving the genitourinary system
CPT/HCPCS: 36415; 81001; 81003; 83036

== ENCOUNTER 2023-01-07 08:42 | Outpatient (REF) | payer MEDICARE, BC, SELFPAY ==
--- NOTE | ~2023-01-07 | MM_ITS ---
EXAMINATION: BONE DENSITOMETRY CLINICAL INDICATION: Age-related osteoporosis without current pathological fracture. COMPARISON: Previous BD dated 08/09/2015 and baseline BD dated 06/16/2006. TECHNIQUE: Using a [employer] DXA System (software version: 13.1) manufactured by [employer], dual-energy x-ray absorptiometry was performed of the lumbar spine and left hip. The images are of good technical quality. Summary results are attached. FINDINGS: AP SPINE L1-L3 (excluding L4): The data of L1-L4 has been changed to exclude the L4 vertebral body, because degenerative sclerosis at this level may cause overestimation of lumbar spine density. Current: BMD 1.273 g/cm2, Z-score 1.7, T-score 0.9, normal, 4.1% increase from previous, 19.9% increase from baseline (<5% change is not significant). Prior: BMD 1.223 g/cm2. Baseline: BMD 1.062 g/cm2. LEFT FEMUR, NECK: Current: BMD 0.870 g/cm2, Z-score 0.0, T-score -1.2, osteopenia. Prior: BMD 0.880 g/cm2. Baseline: BMD 0.938 g/cm2. LEFT FEMUR, TOTAL: Current: BMD 0.964 g/cm2, Z-score 0.5, T-score -0.3, normal, 0.8% increase from previous, 5.5% decrease from baseline (<5% change is not significant). Prior: BMD 0.956 g/cm2. Baseline: BMD 1.020 g/cm2. IDENTIFIED RISK FACTORS: Osteoporosis. Low calcium intake. Menopause. HISTORY OF FRACTURE: None listed. MEDICATIONS: None listed. MM/XR DEXA axial skeleton IMPRESSION: 1. DIAGNOSIS: Osteopenia based on the lowest T-score value of -1.2 in the femoral neck applying World Health Organization criteria. 2. 10-YEAR FRACTURE RISK PREDICTION, FRAX: Major osteoporotic fracture (clinical spine, forearm, hip or shoulder) 8.5%. Hip fracture 1.0%. 3. Treatment Recommendations: NOF guidelines recommend consideration for treatment in postmenopausal women and men age 50 and older presenting with the following: -A hip or vertebral (clinical or morphometric) fracture. -T-score less than or equal to -2.5 at the femoral neck or spine after appropriate evaluation to exclude secondary causes. -Low bone mass at the hip or spine and a 10-year fracture probability by FRAX of greater than or equal to 3% for hip fracture or greater than or equal to 20% for major osteoporotic fracture based on the [place] adapted WHO algorithm. 4. Other Recommendations: All treatment decisions require clinical judgment and consideration of individual patient factors, including patient preferences, comorbidities, previous drug use, risk factors not captured in the FRAX model (e.g. frailty, falls, vitamin D deficiency, increased bone turnover, interval significant decline in bone density) and possible under or overestimation of fracture risk by FRAX. Additional medical evaluation for secondary cause of low bone mineral density may be appropriate. FUTURE SCAN RECOMMENDATION: People with diagnosed cases of osteoporosis or at high risk for fracture should have regular bone mineral density tests. For patients eligible for Medicare, routine testing is allowed once every 2 years. The testing frequency can be increased to one year for patients who have rapidly progressing disease, those who are receiving or discontinuing medical therapy to restore bone mass, or have additional risk factors.
== END 2023-01-07 08:43 | disposition home or self-care (01) ==
LOC: HO.MAMMO 08:42
PROVIDERS: PCP Internal Medicine Medical Oncology; Visit Provider Internal Medicine Medical Oncology
DX: Z13.820 Encounter for screening for osteoporosis (principal); Z78.0 Asymptomatic menopausal state; M81.0 Age-related osteoporosis without current pathological fracture
CPT/HCPCS: 77080

== ENCOUNTER 2023-03-30 06:03 | Outpatient (REF) | payer MEDICARE, BC, SELFPAY ==
[2023-03-30 11:39] LABS: MANUAL DIFF FLAG NO
[2023-03-30 11:47] LABS: Basophils Absolute Auto 0.1 X10*3/uL (0.0-0.2); Basophils Percent Auto 1.3 % (0-2); Eosinophils Absolute Auto 0.4 X10*3/uL (0.0-0.4); Hematocrit 40.5 % (37.0-47.0); Hemoglobin 13.9 g/dl (12.0-16.0); Imm Gran Abs Auto 0.04 X10*3/uL (0.00-0.03); Imm Gran Pct Auto 0.6 % (0.0-0.4); Lymphocytes Absolute Auto 2.5 X10*3/uL (1.2-4.9); Lymphocytes Percent Auto 34.3 % (20-40); Mean Corpuscular HGB Conc 34.3 g/dl (31.0-35.0); Mean Corpuscular Hemoglobin 31.9 pg (27.0-33.0); Mean Corpuscular Volume 92.9 fL (80.0-98.0); Mean Platelet Volume 9.5 fL (9.4-12.3); Monocytes Absolute Auto 0.7 X10*3/uL (0.1-1.2); Monocytes Percent Auto 9.5 % (2-11); Neutrophils Absolute Auto 3.5 x10*3/uL (2.0-8.3); Neutrophils Percent Auto 49.3 % (45-73); Platelet Count 372 X10*3/uL (160-400); Red Blood Count 4.36 X10*6/uL (4.20-5.50); Red Cell Distribution Width 12.6 % (11.0-16.0); White Blood Count 7.2 X10*3/uL (4.8-10.8)
[2023-03-30 12:05] LABS: Estimated Average Glucose 131 mg/dL; Hemoglobin A1c % 6.2 % (<6.0)
[2023-03-30 12:11] LABS: Alanine Aminotransferase 27 U/L (0-31); Albumin Level 4.3 g/dL (3.5-5.0); Alkaline Phosphatase 102 U/L (39-117); Anion Gap 15 (12-20); Aspartate Amino Transferase 22 U/L (5-31); Bilirubin Total 0.4 mg/dL (0.0-1.0); Blood Urea Nitrogen 11 mg/dL (9-16); Calcium 9.8 mg/dL (8.4-10.2); Carbon Dioxide 24 mmol/L (22-29); Chloride 104 mmol/L (96-108); Cholesterol 143 mg/dL (<200); Estimated Glomerular Filt Rate 47; Glucose Fasting 138 mg/dL (60-99); HDL Cholesterol 51 mg/dL (>40); LDL Cholesterol Calculated 76 mg/dL (<100); Sodium 138 mmol/L (135-145); Triglycerides 82 mg/dL (<150)
[2023-03-30 12:29] LABS: Free T4 (Free Thyroxine) 0.87 ng/dL (0.71-1.85); Thyroid Stimulating Hormone 1.82 uIU/mL (0.32-4.0)
== END 2023-03-30 06:04 | disposition home or self-care (01) ==
LOC: HO.HMGCLDS 06:03
PROVIDERS: PCP Internal Medicine Medical Oncology; Visit Provider Internal Medicine Medical Oncology
DX: E03.9 Hypothyroidism, unspecified (principal); E11.9 Type 2 diabetes mellitus without complications; E78.01 Familial hypercholesterolemia
CPT/HCPCS: 36415; 80053; 80061; 83036; 84439; 84443; 85025

== ENCOUNTER 2023-03-31 07:30 | Outpatient (REF) | payer MEDICARE, BC, SELFPAY ==
[2023-03-31 12:07] LABS: Creatinine Urine 78.52 mg/dL; Microalbum/Creatinine Ratio Ur 24.1 ug/mg cr (<30)
== END 2023-03-31 07:31 | disposition home or self-care (01) ==
LOC: HO.HMGCLNP 07:30
PROVIDERS: Visit Provider Internal Medicine Medical Oncology
DX: E03.9 Hypothyroidism, unspecified (principal); E11.9 Type 2 diabetes mellitus without complications; E78.01 Familial hypercholesterolemia
CPT/HCPCS: 82043; 82570

== ENCOUNTER 2023-08-06 06:02 | Outpatient (REF) | payer MEDICARE, BC, SELFPAY ==
[2023-08-06 10:31] LABS: MANUAL DIFF FLAG NO
[2023-08-06 10:38] LABS: Basophils Absolute Auto 0.1 X10*3/uL (0.0-0.2); Basophils Percent Auto 1.1 % (0-2); Eosinophils Absolute Auto 0.4 X10*3/uL (0.0-0.4); Eosinophils Percent Auto 5.7 % (0-4); Hematocrit 40.4 % (37.0-47.0); Hemoglobin 13.5 g/dl (12.0-16.0); Imm Gran Abs Auto 0.04 X10*3/uL (0.00-0.03); Imm Gran Pct Auto 0.5 % (0.0-0.4); Lymphocytes Percent Auto 40.5 % (20-40); Mean Corpuscular HGB Conc 33.4 g/dl (31.0-35.0); Mean Corpuscular Hemoglobin 31.4 pg (27.0-33.0); Mean Platelet Volume 9.1 fL (9.4-12.3); Monocytes Absolute Auto 0.7 X10*3/uL (0.1-1.2); Monocytes Percent Auto 9.3 % (2-11); Neutrophils Absolute Auto 3.2 x10*3/uL (2.0-8.3); Neutrophils Percent Auto 42.9 % (45-73); Platelet Count 359 X10*3/uL (160-400); Red Cell Distribution Width 12.4 % (11.0-16.0); White Blood Count 7.4 X10*3/uL (4.8-10.8)
[2023-08-06 11:42] LABS: Alanine Aminotransferase 28 U/L (0-31); Albumin Level 4.3 g/dL (3.5-5.0); Alkaline Phosphatase 93 U/L (39-117); Anion Gap 14 (12-20); Aspartate Amino Transferase 27 U/L (5-31); Bilirubin Total 0.5 mg/dL (0.0-1.0); Blood Urea Nitrogen 15 mg/dL (9-16); Calcium 9.6 mg/dL (8.4-10.2); Carbon Dioxide 25 mmol/L (22-29); Chloride 102 mmol/L (96-108); Cholesterol 160 mg/dL (<200); Estimated Glomerular Filt Rate > 60; Glucose Fasting 135 mg/dL (60-99); HDL Cholesterol 49 mg/dL (>40); LDL Cholesterol Calculated 91 mg/dL (<100); Potassium 4.6 mmol/L (3.3-5.1); Sodium 136 mmol/L (135-145); Triglycerides 103 mg/dL (<150)
[2023-08-06 11:56] LABS: Free T4 (Free Thyroxine) 0.88 ng/dL (0.71-1.85); Thyroid Stimulating Hormone 2.83 uIU/mL (0.32-4.0)
== END 2023-08-06 06:03 | disposition home or self-care (01) ==
LOC: HO.HMGCLDS 06:02
PROVIDERS: PCP Internal Medicine Medical Oncology; Visit Provider Internal Medicine Medical Oncology
DX: I10 Essential (primary) hypertension (principal); E66.01 Morbid (severe) obesity due to excess calories; E03.9 Hypothyroidism, unspecified; E78.01 Familial hypercholesterolemia
CPT/HCPCS: 36415; 80053; 80061; 84439; 84443; 85025

== ENCOUNTER 2023-12-14 06:03 | Outpatient (REF) | payer MEDICARE, BC, SELFPAY ==
[2023-12-14 10:12] LABS: MANUAL DIFF FLAG NO
[2023-12-14 10:35] LABS: Basophils Absolute Auto 0.1 X10*3/uL (0.0-0.2); Basophils Percent Auto 1.4 % (0-2); Eosinophils Absolute Auto 0.4 X10*3/uL (0.0-0.4); Eosinophils Percent Auto 6.5 % (0-4); Hematocrit 40.4 % (37.0-47.0); Hemoglobin 13.5 g/dl (12.0-16.0); Imm Gran Abs Auto 0.02 X10*3/uL (0.00-0.03); Imm Gran Pct Auto 0.4 % (0.0-0.4); Lymphocytes Absolute Auto 2.3 X10*3/uL (1.2-4.9); Lymphocytes Percent Auto 41.1 % (20-40); Mean Corpuscular HGB Conc 33.4 g/dl (31.0-35.0); Mean Corpuscular Hemoglobin 31.6 pg (27.0-33.0); Mean Corpuscular Volume 94.6 fL (80.0-98.0); Mean Platelet Volume 9.2 fL (9.4-12.3); Monocytes Absolute Auto 0.5 X10*3/uL (0.1-1.2); Neutrophils Absolute Auto 2.4 x10*3/uL (2.0-8.3); Neutrophils Percent Auto 41.6 % (45-73); Platelet Count 371 X10*3/uL (160-400); Red Blood Count 4.27 X10*6/uL (4.20-5.50); Red Cell Distribution Width 12.6 % (11.0-16.0); White Blood Count 5.7 X10*3/uL (4.8-10.8)
[2023-12-14 11:43] LABS: Alanine Aminotransferase 35 U/L (0-31); Albumin Level 4.6 g/dL (3.5-5.0); Alkaline Phosphatase 80 U/L (39-117); Anion Gap 13 (12-20); Aspartate Amino Transferase 40 U/L (5-31); Bilirubin Total 0.6 mg/dL (0.0-1.0); Blood Urea Nitrogen 14 mg/dL (9-16); Calcium 10.1 mg/dL (8.4-10.2); Carbon Dioxide 25 mmol/L (22-29); Chloride 104 mmol/L (96-108); Cholesterol 165 mg/dL (<200); Estimated Glomerular Filt Rate 58; Glucose Fasting 126 mg/dL (60-99); HDL Cholesterol 53 mg/dL (>40); LDL Cholesterol Calculated 84 mg/dL (<100); Potassium 5.1 mmol/L (3.3-5.1); Sodium 137 mmol/L (135-145); Total Protein 7.1 g/dL (6.5-8.0); Triglycerides 144 mg/dL (<150)
[2023-12-14 11:49] LABS: Free T4 (Free Thyroxine) 1.03 ng/dL (0.71-1.85); Thyroid Stimulating Hormone 1.31 uIU/mL (0.32-4.0)
== END 2023-12-14 06:04 | disposition home or self-care (01) ==
LOC: HO.HMGCLDS 06:03
PROVIDERS: PCP Internal Medicine Medical Oncology; Visit Provider Internal Medicine Medical Oncology
DX: I10 Essential (primary) hypertension (principal); K21.9 Gastro-esophageal reflux disease without esophagitis; E66.01 Morbid (severe) obesity due to excess calories; E03.9 Hypothyroidism, unspecified
CPT/HCPCS: 36415; 80053; 80061; 84439; 84443; 85025

== ENCOUNTER 2024-01-05 08:03 | Outpatient (AMB) | payer MEDICARE, BC, SELFPAY ==
[2024-01-05 08:10] VITALS: BP 120/84; PULSE 78; O2SAT 98
--- NOTE | 2024-01-05 08:10 | MHC.OFFWIV ---
Intake Vital Signs 01/05/24 08:10 Weight 193 lb BP 120/84 Blood Pressure Location Rt brachial Position Sitting Pulse 78 Pulse Source Pulse Oximeter Pulse Oximetry (%) 98 Oxygen Delivery Method Room Air Intake Visit Reasons: EP Fall, Lt wrist pain Intake Note: Patient here for a fall and landed on her left wrist and she also has some right shoulder pain Patient Tobacco Use Status: Former Tobacco user Allergies bee pollen [bee stings] Allergy (Verified 01/05/24 08:19) Swelling Do you need a note to return to daycare/school/sports/work: No HPI HPI Comments History of Present Illness Details Patient is a 73-year-old female with 2 complaints, 1st she says she injured her right shoulder about 6 weeks ago it seemed to be getting a little bit better but she still having difficulty putting it behind her back and then raising it over her head. She states when she does yoga and they do shoulder stinson and backwards swimming maneuvers, it is very painful. Her 2nd complaint is that she fell on an outstretched hand on her left hand yesterday. She was pruning some bushes and had her prune or on the ground trying to cut a branch and was pushing very hard when she fell forward on her left hand. She states it hurt and when she went inside she put ice on it and it seems a little bit swollen and painful today. PFSH Medical History Cancer Diabetes Elevated cholesterol GERD (gastroesophageal reflux disease) Hard of hearing Hx of Lyme disease Thyroid disease Surgical History H/O colonoscopy History of esophagogastroduodenoscopy (EGD) History of surgical removal of pilonidal cyst Hx of breast reconstruction Hx of cataract surgery Hx of knee surgery Hx of right mastectomy Social History Patient Tobacco Use Status: Former Tobacco user Review of Systems Const All systems reviewed & are unremarkable except as noted in HPI and below Physical Exam Vital Signs: Last Vital Signs Pulse 78 01/05/24 08:10 BP 120/84 01/05/24 08:10 Pulse Ox 98 01/05/24 08:10 Oxygen Delivery Method Room Air 01/05/24 08:10 Const General: cooperative, healthy appearing, comfortable, no acute distress and well developed Orientation/consciousness: patient oriented x3 Limitations: no limitations HEENT Head: Yes normal to inspection Neck Neck: Yes normal visual inspection and Yes supple Neuro General: patient oriented x3 Assessment & Plan Assessment & Plan (1) Fall: Code(s): W19.XXXA - Unspecified fall, initial encounter Qualifiers: Encounter type: initial encounter Qualified Code(s): W19.XXXA - Unspecified fall, initial encounter (2) Left wrist sprain: Code(s): S63.502A - Unspecified sprain of left wrist, initial encounter Qualifiers: Encounter type: initial encounter Qualified Code(s): S63.502A - Unspecified sprain of left wrist, initial encounter Plan: My initial view of the x-rays does not show a fracture or dislocation. Recommended Aleve, rest, ice, and fitted patient for a wrist splint. Recommended to wear the wrist splint as much as possible over the next couple of weeks and if her pain is not improving, she should follow up with her PCP. Plan See above Orders: Orders XR wrist LT w scaphoid Today W19.XXXA - Unspecified fall, initial encounter Coding Level of Care Code New Pt Level 4 (00953) Diagnoses Fall, initial encounter W19.XXXA Encounter type: initial encounter Sprain of left wrist, initial encounter S63.502A Encounter type: initial encounter
== END 2024-01-05 09:13 | disposition home or self-care (01) ==
PROVIDERS: PCP Internal Medicine Medical Oncology; Visit Provider Physician Assistant
DX: S63.502A Unspecified sprain of left wrist, initial encounter (principal); W19.XXXA Unspecified fall, initial encounter

== ENCOUNTER 2024-01-05 08:45 | Outpatient (REF) | payer MEDICARE, BC, SELFPAY ==
--- NOTE | ~2024-01-05 | XR_ITS ---
EXAMINATION: XR HAND/WRIST, LEFT CLINICAL INFORMATION: Trauma COMPARISON: None available. TECHNIQUE: PA, lateral, oblique, and scaphoid views of the left hand and wrist. FINDINGS: No acute fracture or malalignment. 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 XR/XR hand wrist LT IMPRESSION: No acute fracture or malalignment. Severe osteoarthritis. Electronically signed by: Arnav Abdullahi MD 01/05/2024 10:53 AM EDMON[facility] JESSICA
== END 2024-01-05 08:46 | disposition home or self-care (01) ==
LOC: HO.HMGCX 08:45
PROVIDERS: PCP Internal Medicine Medical Oncology; Visit Provider Physician Assistant
DX: S63.502A Unspecified sprain of left wrist, initial encounter (principal); M25.511 Pain in right shoulder; W19.XXXA Unspecified fall, initial encounter; Y93.9 Activity, unspecified; Y92.9 Unspecified place or not applicable; Y99.9 Unspecified external cause status
CPT/HCPCS: 73110; 73130; 99202

== ENCOUNTER 2024-01-18 06:10 | Outpatient (REF) | payer MEDICARE, BC, SELFPAY ==
[2024-01-18 09:55] LABS: MANUAL DIFF FLAG NO
[2024-01-18 10:00] LABS: Basophils Absolute Auto 0.1 X10*3/uL (0.0-0.2); Basophils Percent Auto 1.3 % (0-2); Eosinophils Absolute Auto 0.2 X10*3/uL (0.0-0.4); Eosinophils Percent Auto 4.1 % (0-4); Hematocrit 38.8 % (37.0-47.0); Hemoglobin 13.1 g/dl (12.0-16.0); Imm Gran Abs Auto 0.03 X10*3/uL (0.00-0.03); Imm Gran Pct Auto 0.6 % (0.0-0.4); Lymphocytes Absolute Auto 2.2 X10*3/uL (1.2-4.9); Lymphocytes Percent Auto 40.4 % (20-40); Mean Corpuscular HGB Conc 33.8 g/dl (31.0-35.0); Mean Corpuscular Volume 94.6 fL (80.0-98.0); Mean Platelet Volume 9.3 fL (9.4-12.3); Monocytes Absolute Auto 0.6 X10*3/uL (0.1-1.2); Monocytes Percent Auto 10.2 % (2-11); Neutrophils Absolute Auto 2.4 x10*3/uL (2.0-8.3); Neutrophils Percent Auto 43.4 % (45-73); Platelet Count 360 X10*3/uL (160-400); Red Cell Distribution Width 12.6 % (11.0-16.0); White Blood Count 5.4 X10*3/uL (4.8-10.8)
[2024-01-18 10:23] LABS: Estimated Average Glucose 128 mg/dL; Hemoglobin A1C 142.4391 umol/L; Hemoglobin A1c % 6.1 % (<6.0); Total Hemoglobin (HGBA1C) 3324.6714 umol/L
[2024-01-18 11:07] LABS: Alanine Aminotransferase 26 U/L (0-31); Albumin Level 4.4 g/dL (3.5-5.0); Alkaline Phosphatase 72 U/L (39-117); Anion Gap 12 (12-20); Aspartate Amino Transferase 29 U/L (5-31); Bilirubin Total 0.7 mg/dL (0.0-1.0); Blood Urea Nitrogen 18 mg/dL (9-16); Calcium 9.9 mg/dL (8.4-10.2); Carbon Dioxide 25 mmol/L (22-29); Chloride 102 mmol/L (96-108); Estimated Glomerular Filt Rate 55; Glucose Fasting 114 mg/dL (60-99); Potassium 4.6 mmol/L (3.3-5.1); Sodium 134 mmol/L (135-145)
[2024-01-18 14:05] LABS: Creatinine Urine 62.06 mg/dL; Microalbum/Creatinine Ratio Ur 33.8 ug/mg cr (<30)
== END 2024-01-18 06:11 | disposition home or self-care (01) ==
LOC: HO.HMGCLDS 06:10
PROVIDERS: PCP Internal Medicine Medical Oncology; Visit Provider Internal Medicine Medical Oncology
DX: I10 Essential (primary) hypertension (principal); E78.01 Familial hypercholesterolemia; E11.9 Type 2 diabetes mellitus without complications
CPT/HCPCS: 36415; 80053; 82043; 82570; 83036; 85025

== ENCOUNTER 2024-01-25 10:22 | Outpatient (REF) | payer MEDICARE, BC, SELFPAY ==
--- NOTE | ~2024-01-25 | XR_ITS ---
EXAMINATION: XR SHOULDER, RIGHT CLINICAL INFORMATION: ACUTE PAIN RIGHT SHOULDER COMPARISON: None available. TECHNIQUE: AP external rotation, Grashey, scapular Y, and axillary views of the right shoulder. 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 Glenoid humeral joint normal. Surrounding bone and soft tissues unremarkable. XR/XR shoulder RT min 2V IMPRESSION: Mild arthrosis of the right shoulder Electronically signed by: Trent Bautista MD 01/25/2024 03:12 PM EDMOND JESSICA
== END 2024-01-25 10:23 | disposition home or self-care (01) ==
LOC: HO.XRAY 10:22
PROVIDERS: PCP Internal Medicine Medical Oncology; Visit Provider Internal Medicine Medical Oncology
DX: M25.511 Pain in right shoulder (principal)
CPT/HCPCS: 73030

== ENCOUNTER 2024-04-15 06:12 | Outpatient (REF) | payer MEDICARE, BC, SELFPAY ==
--- OUTSIDE RECORDS SUMMARY | 2024-04-15 06:14 | XMS_ITS ---
Author Organization [facility] Address [address] [place] [address] Care Team Providers Care Manager Fine Dining Name Role Phone Paul Vela MD Primary Care Provider Unavailab Paul Rios Unavailable [phone] REASON FOR VISIT anal pain Encounters Encounter Location Date Provider Diagnosis [facility] [address] [place] [address] 10/14/2022 Paul Coy PLAN OF TREATMENT No Information
--- OUTSIDE RECORDS SUMMARY | 2024-04-15 06:15 | XMS_ITS ---
Author Organization [facility] Address [address] [place] [address] Care Team Providers Care Container Maker Name Role Phone Paul Vela MD Primary Care Provider UnavailPatricia Ware Unavailable [phone] Allergies No Known Allergies REASON FOR VISIT Painful nail(s) aggravated by shoes causing difficulty standing/walking Medications Medication SIG (Take, Route, Frequency, Duration) Notes Start Date End Date Status Work Note . . . pt is disabled from work until 07/30/15 she may return to work Not-Taking Work Note . . . pt is disabled from work until 07/30/15 she may return to work 07/25/2015 Not-Taking Omeprazole 40 MG as directed Orally Active Work Note . . . patient is disabled from work due to surgery until 09/18/16 Not-Taking Work Note . . . patient may return to full work duties on 10/07/16 09/29/2016 Not-Taking Metamucil Active Valsartan 80 MG 1 tablet Orally Once a day Active glipiZIDE 5 MG 1 tablet 30 minutes before breakfast Orally Once a day Active Levothyroxine Sodium Between 50m g 75mg Active Atorvastatin Calcium 20 MG 1 tablet Orally Once a day Active Social History Tobacco Use: Social History Observation Description Date Details (start date - stop date) Former Smoker NA - NA Tobacco Use/Smoking Question Answer Notes Are you a: former smoker Additional Findings: Tobacco Non-User Current no n-smoker Alcohol Screen Question Answer Notes Did you have a drink contain ing alcohol in the past year? Yes How often did you have a dri nk containing alcohol in the past year? 4 or more times a week (4 points) Points 4 Interpretation Positive Tobacco use other than smoking: Question Answer Notes Are you an other tobacco user? No Vital Signs Height 5ft 2in in 01/13/2024 Weight 197 lbs 01/13/2024 BMI 36.03 kg/m2 01/13/2024 Blood pressure systolic 120 mm Hg 01/13/20 24 Blood pressure diastolic 80 mm Hg 024 Procedures Procedure Date Ordered Date Performed Result Body Sit e 67141-[id number] NAIL, 6 OR MORE 01/13/2024 N/A Encounters Encounter Location Date Provider Diagnosis [facility] [address] [address] 01/13/2024 Patricia Sears Onychomycosis B35.1 ; Pain in right toe(s) M79.674 and Pain in left toe(s) M79.675 Assessments Encounter Date Diagnosis (ICD Code) Assessment Notes Treatment Notes Treatment Clinical Notes Section Notes 01/13/2024 Onychomycosis (ICD-10 - B35.1) 01/13/2024 Pain in right toe(s) (ICD-10 - M79.674) 01/13/2024 Pain in left toe(s) (ICD-10 - M79.675) Plan Of Treatment Pending Test Test Name Order Date [id number] NAIL, 6 OR MORE 01/13/2024 Next Appt Details Follow Up: 3 Months, Reason: Provider Name:Patricia watt, 06/06/2024 10:15:00 AM, [address] [place] [address], [phone], Procedure Notes * Category Sub-Category Detail Notes Debride Nail 6-10 Nail debridement Performance o f this nail treatment by a nonprofessional would put this patients foot and overall health at risk. Therefore, debridement to affected nail(s), as described in exam, was performed extensively to reduce/remove overall nail length, girth, thickness, subungual debris, and necrotic tissue, by manual and/or electrical means through the use of a nail nipper and/or dremel-type cutlery grinder, to a more viable healthy nail plate or bed tissue 6-10. Silver nitrate used for any petechial bleeding as necessary. Definitive antifungal treatment options have been reviewed and discussed with the patient. The patient chooses, no pharmaceutical tx - 35123 Progress Notes * Khalida DAVIS LDOB:1950 (73 yo F)Acc No.[id number]:01/13/2024 Progress Note Patient:?Khalida DAVIS Provider:?Patricia Sears DPM :1950???Age:73 Y???Sex:Female D ate:01/13/2024 Address:[address] [place], [place] [id number] Pcp:Paul Vela MD Subjective: * Chief Complaints: * ???Painful nail(s) aggravate d by shoes causing difficulty standing/walking * HPI: ???Painful Nails:?Pt States Last PCP Visit:?Date:?10/20/2023 * ROS:?General/Constitutional:?Nausea?denies.?Vomiting?denies.?Hunger Thirst?denies.?Loss appetite?denies.?Chills?denies.?Fatigue?admits.?Fever?denies.?Night Sweats?denies.?Unexplained weight loss?admits.?Ophthalmologic:?Blurred vision?denies.?Red eye?denies.?HEENTM:?Dentures?denies.?Dizziness?denies.?Glasses/contacts?admits.?Retinopathy?de nies.?Blurred/double vision?denies.?TMJ?denies.?Discharge/drainage?denies.?Implants?denies.?Hard of hearing admits.?Difficulty chewing/swallowing/speaking?denies.?Nose bleeds?denies.?Sore mouth?denies.?Swollen glands?denies.?Respiratory:?On Oxygen?denies.?Pneumonia/pleurisy?denies.?Bronchitis?denies.?Emphysema?denies.?C oughing?denies.?Cough blood?denies.?Shortness of breath?admits.?Wheezing?denies.?Cardiovascular:?Pacemaker?denies.?MVP?denies.?WPW?denies.?CHF?denies.?Heart attack?denies.?Septal defect?denies.?Rapid beat?denies.?Chest pain ?denies.?Atrial Fib.?denies.?Murmur/Palpitations?denies.?Gastrointestinal:?Hemorrhoids?denies.?Stomach/Abdominal pain?denies.?Dark blood stool?denies.?Irritable bowel ?admits.?Constipation?admits.?Diarrhea?admits.?Vomiting?denies.?Hematology:?Swelling?admits.?Bruising?denies.?Bleeding problem?denies.?Genitourinary:?Blood urine?denies.?Frequent/Painfu/urination/bladder control?denies.?Kidney stones?denies.?Infection (UTI)?denies.?Nephropathy?denies.?Musculoskeletal:?Hammertoes?denies.?Bunions?denies.?Scoliosis/kyphosis?denies.?Muscle cramps / walking?admits.?Generalized aches and pains?admits.?Weakness?admits.?Integ.:?[place]?denies.?Scars?denies.?Corns/calluses?denies.?Ingrown nails?denies.?Painful nails?admits.?Rashes?denies.?Neurologic:?Difficulty sleeping?admits.?Bipolar?denies.?Brain disorder?denies.?Balance trouble?denies.?Confusion?denies.?Fainting/blackouts?denies.?Headache?denies.?Tr emors?denies.? * Medical History:? * Surgical History:?cyst remov al 1971cancer 2000cataract 2016lymph nodes removed * Hospitalization/Major Diagno stic Procedure:?Denies Past Hospitalization * Family History:?Mother: dece ased.?Father: .?Siblings: breast cancer, diagnosed with Other malignant neoplasm of unspecified site.? * Social History:?Tobacco Use:?Tobacco Use/Smoking?Are you a:?former smoker ?Additional Findings: Tobacco Non-User?Current non-smoker ?Tobacco use other than smoking?Are you an other tobacco user??No ???Drugs/Alcohol:?Drugs?Have you used drugs other than those for medical reasons in the past 12 months??No ?Alcohol Screen?Did you have a drink containing alcohol in the past year??Yes ?How often did you have a drink containing alcohol in the past year??4 or more times a week (4 points) ?Points?4 ?Interpretation?Positive ???Miscellaneous:?Caffeine: yes, frequency:24 -30 oz. ?Children: no. ?Exercise: yes, walking,yard work. ?Marital status: single. 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 * Medications:?TakingglipiZIDE 5 MG Tablet 1 tablet 30 minutes before breakfast Orally Once a day Valsartan 80 MG Tablet 1 tablet Orally Once a day Metamucil Atorvastatin Calcium 20 MG Tablet 1 tablet Orally Once a day Levothyroxine Sodium , Notes to Pharmacist: Between 50mg 75mgOmeprazole 40 MG Capsule Delayed Release as directed Orally Taking glipiZIDE 5 MG Tablet 1 tablet 30 minutes before breakfast Orally Once a day Taking Valsartan 80 MG Tablet 1 tablet Orally Once a day Taking Metamucil Taking Atorvastatin Calcium 20 MG Tablet 1 tablet Orally Once a day Taking Levothyroxine Sodium , Notes to Pharmacist: Between 50mg 75mgTaking Omeprazole 40 MG Capsule Delayed Release as directed Orally Not-Taking/PRNWork Note . . . . patient may return to full work duties on 10/07/16 Work Note . . . . patient is disabled from work due to surgery until 09/18/16 Work Note . . . . pt is disabled from work until 07/30/15 she may return to work Work Note . . . . pt is disabled from work until 07/30/15 she may return to work Medication List reviewed and reconciled with the patientNot-Taking/PRN Work Note . . . . patient may return to full work duties on 10/07/16 Not-Taking/PRN Work Note . . . . patient is disabled from work due to surgery until 09/18/16 Not-Taking/PRN Work Note . . . . pt is disabled from work until 07/30/15 she may return to work Not-Taking/PRN Work Note . . . . pt is disabled from work until 07/30/15 she may return to work Medication List reviewed and reconciled with the patient * Allergies:?N.K.D.A.yes[Aller gies Verified] Objective: * Vitals:?Ht:5ft 2in, Wt:197, BMI:36.03, Shoe size:9.5-10, BP:120/80mm Hg, Ht-cm: 157.48 cm, Wt-k.36 kg. * Examination: ???Nails: ?NAILS are:?Elongated, overgrown, dystrophic, lytic, greater than 3mm thick, discolored and friable with crumbly malodorous subungual debris, with pain on palpation, 1-5 B/L.? Assessment: * Assessment: 1.?Pain in right toe(s) - M7 9.674???2.?Onychomycosis - B35.1 (Primary)???3.?Pain in left toe(s) - M79.675??? Plan: * Treatment: * Procedures:?Debride Nail 6-10:?Nail debridement?Performance of this nail treatment by a nonprofessional would put this patients foot and overall health at risk. Therefore, debridement to affected nail(s), as described in exam, was performed extensively to reduce/remove overall nail length, girth, thickness, subungual debris, and necrotic tissue, by manual and/or electrical means through the use of a nail nipper and/or dremel-type cutlery grinder, to a more viable healthy nail plate or bed tissue 6-10. Silver nitrate used for any petechial bleeding as necessary. Definitive antifungal treatment options have been reviewed and discussed with the patient. The patient chooses, no pharmaceutical tx - 32659.? * Procedure Codes:?79416 DEBRI DE NAIL, 6 OR MORE * Follow Up:?3 Months * Images: * Sign off status: Completed true * Provider:?Patricia Sears DPM Date:?1 03/14/2023 Generated for Jess carbajal/Darinel/Kirstiesmitting on:?04/15/2024 06:15 AM EST History and Physical Notes * HPI (History of Present Illness) Category Sub-Category Detail Notes Category Not es Painful Nails Pt States Last PCP Visit: Date:: 10/20/2023 Examination Category Sub-Category Detail Notes Category Not es Nails NAILS are: Elongated, overg rown, dystrophic, lytic, greater than 3mm thick, discolored and friable with crumbly malodorous subungual debris, with pain on palpation, 1-5 B/L
--- OUTSIDE RECORDS SUMMARY | 2024-04-15 06:15 | XMS_ITS ---
Author Organization Paul Vela III, MD Address [address] [place] [address] Care Team Providers Care Homeworker Name Role Phone Paul Vela Primary Care Provider REASON FOR VISIT Needs call back from [...] Date Provider Diagnosis Paul Vela III, MD [address] [place] [address] [place] [address] 01/11/2024 Paul Vela Type 2 diabetes mellitus without complication, without long-term current use of insulin E11.9 Assessments Encounter Date Diagnosis (ICD Code) Assessment Notes Treatment Notes Treatment Clinical Notes 01/11/2024 Type 2 diabetes mellitus without complication, without long-term current use of insulin (ICD-10 - E11.9) Plan Of Treatment Medication Medication Name Sig Start Date Stop Date Notes JrStyle Lite w/Device to be use to kushal [...] E11.9 Diabetes Next Appt Details Provider Name:Paul Vela, 04/25/2024 10:00:00 AM, [address] [place] [address] [address], [place], [phone], Provider Name:Paul Vela, 12/27/2024 09:30:00 AM, [address] [place] [address] [address] [place], [place], [phone], Progress Notes * Amirah KEATINGOB:[birth year] (73 yo F)Acc No.[id number]:01/11/2024 Patient:?Palmer KEATINGise :1950???Age:73 Y???Sex:Female Address:[address] [place] [address], [address] * Refills? Start FreeStyle Lite Kit, w/Device, 1 Kit, [...] days, Refills=3 Subjective: * Chief Complaints: * ???Needs call back from MD * Medical History:? * Surgical History:? * Hospitalization/Major Diagno stic Procedure:? * Medications:? Objective: * Vitals:? * Physical Examination:? Assessment: * Assessment: 1.?Type 2 diabetes mellitus without complication, without long-term current use of insulin - E11.9 (Primary)??? Plan: * Treatment: * Procedure Codes:? * true * Date:? Generated for Jess carbajal/Darinel/eTverasmitting on:?04/15/2024 06:14 AM EST
--- OUTSIDE RECORDS SUMMARY | 2024-04-15 06:16 | XMS_ITS ---
Author Organization [facility] Address [address] [place] [address] Care Team Providers Care Proofsheet Corrector Name Role Phone Paul Vela MD Primary Care Provider Unavailab Patricia Tipton Unavailable [phone] Jovanni Douglas Unavailable [phone] Allergies No Known Allergies REASON FOR VISIT Last Visit PCP: 07/2023 Medications Medication SIG (Take, Route, Frequency, Duration) Notes Start Date End Date Status Metamucil Active Work Note . . . pt is disabled from work until 07/30/15 she may return to work 07/25/2015 Not-Taking Work Note . . . pt is disabled from work until 07/30/15 she may return to work Not-Taking Work Note . . . patient is disabled from work due to surgery until 09/18/16 Not-Taking Valsartan 80 MG 1 tablet Orally Once a day Active Levothyroxine Sodium Between 50m g 75mg Active Omeprazole 40 MG as directed Orally Active Atorvastatin Calcium 20 MG 1 tablet Orally Once a day Active Work Note . . . patient may return to full work duties on 10/07/16 09/29/2016 Not-Taking Social History Tobacco Use: Social History Observation [...] No Vital Signs Height 5ft 2in in 10/08/2023 Weight 197 lbs 10/08/2023 BMI 36.03 kg/m2 10/08/2023 Blood pressure systolic 120 mm Hg 10/08/19 24 Blood pressure diastolic 80 mm Hg 024 Encounters Encounter Location Date Provider Diagnosis [facility] [address] [address] 10/08/2023 Jovanni Douglas Ingrowing nail L60.0 ; Tinea unguium B35.1 ; Metatarsalgia, left foot M77.42 ; Metatarsalgia, right foot M77.41 ; Other hammer toe(s) (acquired), left foot M20.42 ; Other hammer toe(s) (acquired), right foot M20.41 ; Raynaud's disease without gangrene I73.00 ; Localized edema R60.0 ; Plantar fascial fibromatosis M72.2 and Xerosis cutis L85.3 Assessments Encounter Date Diagnosis (ICD Code) Assessment Notes Treatment Notes Treatment Clinical Notes Section Notes 10/08/2023 Ingrowing nail (ICD-10 - L60.0) 10/08/2023 Tinea unguium (ICD-10 - B35.1) 10/08/2023 Metatarsalgia, left foot (ICD-10 - M77.42) 10/08/2023 Metatarsalgia, right foot (ICD-10 - M77.41) 10/08/2023 Other hammer toe(s) (acquired), left foot (ICD-10 - M20.42) 10/08/2023 Other hammer toe(s) (acquired), right foot (ICD-10 - M20.41) 10/08/2023 Raynaud's disease without gangrene (ICD-10 - I73.00) 10/08/2023 Localized edema (ICD-10 - R60.0) 10/08/2023 Plantar fascial fibromatosis (ICD-10 - M72.2) 10/08/2023 Xerosis cutis (ICD-10 - L85.3) Plan Of Treatment Next Appt Details Follow Up: 3 Months, Reason: Provider Name:Patricia Chaudhry shukri, 06/06/2024 10:15:00 AM, [address] [place], [address], Progress Notes * Khalida KEATING LDOB:1950 (73 yo F)Acc No.[id number]:10/08/2023 Progress Note Patient:?Khalida Keating Provider:?Jovanni Douglas DPM :1950???Age:73 Y???Sex:Female D ate:10/08/2023 Address:[address] [place], [place] [id number] Pcp:Paul Vela MD Subjective: * Chief Complaints: * ???Last Visit PCP: 07/2023 * HPI: ???Skin problems:?Nature:?discolored.?Location:?B/L .?Duration:?several months.?Onset/Cause:?gradual, unknown.?Foot Pain:?Nature:?sharp, aching, dull.?Location:?Bottom, Forefoot, B/L, R > L and 2nd toes.?Duration:?several months.?Onset:?unknown.?Course:?intermittent.?Aggravated:?any pressure.?Treatments:?proper shoes and? poor compliance with orthoses; pt has been dehydrated lately.?Severity/Quality:?moderate.? * ROS:?General/Constitutional:?Nausea?denies.?Vomiting?denies.?Hunger Thirst?denies.?Loss appetite?denies.?Chills?denies.?Fatigue?admits.?Fever?denies.?Night Sweats?denies.?Unexplained weight loss?admits.?Ophthalmologic:?Blurred [...] ?Points?4 ?Interpretation?Positive ???Miscellaneous:?Caffeine: yes, frequency:24 -30 oz. ?no Children. ?Exercise: yes, walking,yard work. ?Marital status: single. 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 * Medications:?TakingValsartan 80 MG Tablet 1 tablet Orally Once a dayMetamucil Atorvastatin Calcium 20 MG Tablet 1 tablet Orally Once a dayLevothyroxine Sodium , Notes: Between 50mg 75mgOmeprazole 40 MG Capsule Delayed Release as directed Orally Taking Valsartan 80 MG Tablet 1 tablet Orally Once a dayTaking Metamucil Taking Atorvastatin Calcium 20 MG Tablet 1 tablet Orally Once a dayTaking Levothyroxine Sodium , Notes: Between 50mg 75mgTaking Omeprazole 40 MG Capsule Delayed Release as directed Orally Not-Taking/PRNWork Note . . . . patient may return to full work duties on 10/07/16Work Note . . . . patient is disabled from work due to surgery until 09/18/16Work Note . . . . pt is disabled from work until 07/30/15 she may return to workWork Note . . . . pt is disabled from work until 07/30/15 she may return to workMedication List reviewed and reconciled with the patientNot-Taking/PRN Work Note . . . . patient may return to full work duties on 10/07/16Not-Taking/PRN Work Note . . . . patient is disabled from work due to surgery until 09/18/16Not- Taking/PRN Work Note . . . . pt is disabled from work until 07/30/15 she may return to workNot-Taking/PRN Work Note . . . . pt is disabled from work until 07/30/15 she may return to workMedication List reviewed and reconciled with the patient * Allergies:?N.K.D.A.yes[Meghana aguirre Verified] Objective: * Vitals:?Ht: 5ft 2in, Wt:197, BMI:36.03, Shoe size:9.5-10, BP:120/80 mm Hg. * Examination: ???General Examination: ?GENERAL APPEARANCE:?pleasant, alert, well nourished, well developed, well hydrated, with good attention to hygene/body habitus, and in no acute distress.?ORIENTED:?person,place, and time.?Nails: ?NAILS are:? Elongated, overgrown, dystrophic, lytic, greater than 3mm thick, discolored and friable with crumbly malodorous subungual debris, T5, T7, T9.?Neurological: ?SENSORY:?Neurological exam demonstrates pop plantar 2, 3rd mtpj's johnson.?Vascular: ?DP PULSES:? 02/26, B/L.?PT PULSES:? 02/26, B/L.?CAPILLARY FILL TIME:? delayed, all digits, B/L.?SKIN TEMPERTURE GRADIENT OF THE LOWER EXTERMITIES:? decreased, cool to cold, proximal to distal, B/L.?HAIR GROWTH/TEXTURE/ELASTICITY/TURGOR:? decreased, B/L.?PIGMENTATION:? cyanotic, B/L.?EDEMA:? /, B/L, Feet, Ankle(s), Leg(s).?Dermatologic: ?SKIN FINDINGS:? Skin exam reveals Keratotic lesion(s) located at, Medial plantar, IPJ, TA, T5, Skin shows sign(s) of, dryness, scaling, in a stocking fashion, no fissure(s) present, B/L.?Orthopedic: ?MUSCLE STRENGTH:?5/5 all groups in a symmetrical fashion , B/L.?GAIT ABNORMALITY:? Pronated.?FOOT MORPHOLOGY:? Pes Planus structure, B/L.?DIGITAL DEFORMITIES:? Digital contracture, PIPJ, 2-5 B/L, incompl- reducable to push-up test, no over, nor underlapping.?Ingrown Nail: ?INSPECTION:? Reveals nail incurvation, pain on palpation, groove hypertrophy, groove ischemia, Bilateral nail borders, TA, T5, T7.? 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 Plan: * Treatment: * Procedure Codes:? * Preventive Medicine:? ??Counseling:?Discussion:?-13: Office or other outpatient visit for the evaluation and management of an established patient, which required a medically appropriate history and/or examination and LOW level of DECISION MAKING for: 1 STABLE ACUTE UNCOMPLICATED PROBLEM, 2 OR MORE MINOR PROBLEMS, OR 1 STABLE CHRONIC PROBLEM, THAT POSE(S) A LOW RISK FOR MORBIDITY/MORTALITY. The visit on the day of the encounter encompassed interpreting the data and educating the patient as to the nature of their condition, treatment options available according to their individual PMH, meds, allergies, and overall health/living conditions, as well as any potential risks or complications that may occur from a failure to adhere to, and participate in, the recommended course of therapy. The discussion included a complete verbal, and/or written explanation of the examination results, any x-rays taken, the proposed diagnosis, and outline of the treatment plan. A schedule for future care needs was also explained. The patient verbalized an understanding of the instructions at this time and agreed to be an active participant in their treatment. If the patient should think of any questions or concerns after the visit, I have encouraged the patient to call the office.?Metatarsalgea:?I explained to the patient the possible etiologies of their Metatarsalgea Foot pain, including foot type/shoegear/activity level/exercise routine and the risks/benefits of all the different treatment options for pain including: No treatment at all, Rest, Ice, NSAIDs(only if well tolerated after meals), New/supportive Shoegear, Strappings and Tapings, Foot/Ankle AFO Bracing, Stretching exercises, Deep Tissue Massage, Arch support/shoe inserts, Custom orthoses, Topical analgesics including Aspercream/Voltaren gel, Physical Therapy, Cortisone injection therapy, EPAT/ESWT. Advantages and disadvantages of each option were discussed and the patients questions re: shoegear, custom vs prefabricated inserts, activity level, PO vs Topical medications (and their respective potential complications/drug interactions/side effects), and consistency in home treatment regimens for optimal success were answered to their verbally confirmed satisfaction--rx ronnie cabezas and ina morfin next visit for met pain relief.? * Follow Up:?3 Months * Images: * Sign off status: Completed true * Provider:?Jovanni Douglas DPM Date:? 024 Generated for Jess carbajal/Darinel/Hiramitting on:?04/15/2024 06:15 AM EST History and Physical Notes * HPI (History of Present Illness) Category Sub-Category Detail Notes Category Not es Skin problems Nature: discolored Location: B/L Duration: several months Onset/Cause: gradual, unknown Foot Pain Nature: sharp, aching, dull Location: Bottom, Forefoot, B/ L, R > L and 2nd toes Duration: several months Onset: unknown Course: intermittent Aggravated: any pressure Treatments: proper shoes and poor compliance with orthoses ; pt has been dehydrated lately Severity/Quality: moderate Examination Category Sub-Category Detail Notes Category Not es Ingrown Nail INSPECTION: Reveals nail inc urvation, pain on palpation, groove hypertrophy, groove ischemia, Bilateral nail borders, TA, T5, T7 Neurological SENSORY: Neurological exa m demonstrates pop plantar 2, 3rd mtpj's johnson Dermatologic SKIN FINDINGS: Skin exam reveal s Keratotic lesion(s) located at, Medial plantar, IPJ, TA, T5, Skin shows sign(s) of, dryness, scaling, in a stocking fashion, no fissure(s) present, B/L Orthopedic GAIT ABNORMALITY: Pronated FOOT MORPHOLOGY: Pes Planus structure , B/L DIGITAL DEFORMITIES: Digital contracture , PIPJ, 2-5 B/L, incompl-reducable to push-up test, no over, nor underlapping MUSCLE STRENGTH: 5/5 all groups in a symmetrical fashion , B/L General Examination GENERAL APPEARANCE: pleasant , alert, well nourished, well developed, well hydrated, with good attention to hygene/body habitus, and in no acute distress ORIENTED: person,place, and ti me Vascular DP PULSES (B): 02/26, B/L PT PULSES (B): 02/26, B/L CAPILLARY FILL TIME: delayed, all digits , B/L TEMPERTURE GRADIENT (C): decreased, cool to cold, proximal to distal, B/L TROPHIC CONDITION-TEXTURE/ELASTICITY/TURGOR/HAIR GROWTH (B): decreased, B/L EDEMA (C): 02/26, B/L, Feet, Ankl e(s), Leg(s) PIGMENTATION: cyanotic, B/L Nails NAILS are: Elongated, overg rown, dystrophic, lytic, greater than 3mm thick, discolored and friable with crumbly malodorous subungual debris, T5, T7, T9
--- OUTSIDE RECORDS SUMMARY | 2024-04-15 06:16 | XMS_ITS | Patient Health Record ---
Author Organization [facility] Address [address] [place] [address] Care Team Providers Care Steel Engraver Name Role Phone Paul Vela MD Primary Care Provider Unavailab Paul Rios Unavailable [phone] ALLERGIES No Known Allergies REASON FOR REFERRAL No Information MEDICATIONS Medication SIG (Take, Route, Frequency, Duration) Notes Start Date End Date Status Metamucil Fiber 51.7 % as directed Orally Active Levothyroxine Sodium 50-75mg 1 capsule O rally Once a day Active Atorvastatin Calcium 40 MG 1/2 tablet Or ally Once a day Active Omeprazole 40 MG 1 capsule 30 minutes before morning meal Orally Once a day Active Tylenol PM Extra Strength Active tylenol Active IMMUNIZATIONS Vaccine Route Administration Date Status Comme nts Influenza Unknown 10/24/2018 Administered Influenza Unknown 12/05/2020 Administered SOCIAL HISTORY Sex Assigned At : Social History Observation Description Sex Assigned At Unknown PROBLEMS Problem Type ICD Code Onset Dates Problem Status W/U Status Risk SNOMED Code Notes Problem Encounter for screening for malignant neoplasm of colon (Z12.11) Active confirmed 978299555 Problem History of adenomatous polyp of colon (Z86.010) Active confirmed 177957479 Problem Abdominal pain, epigastric (R10.13) Active confirmed 67264333 Problem Preprocedural examination (Z01.818) Active confirmed 113014091053429 Problem Gastroesophageal reflux disease, esophagitis presence not specified (K21.9) Active confirmed 236461543 Problem Hiatal hernia (K44.9) Active confirmed 93832988 Problem Rectal pain (K62.89) Active confirmed 34432420 Problem Constipation, unspecified constipation type (K59.00) Active confirmed 14923408 Problem Gastroesophageal reflux disease, unspecified whether esophagitis present (K21.9) Active confirmed 965983169 PLAN OF TREATMENT Pending Test Test Name Order Date US ABD 12/28/2020 Future Test Test Name Order Date COLONOSCOPY 08/03/2014 COLONOSCOPY 10/13/2019 Insurance Providers Payer Name Payer Address Payer Phone Subscriber Number Group Number Insured Name Patient Relationship to Insured Coverage Start Date Coverage End Date MEDICARE OF [place] [address] [place] [address] [id number] TAYLOR DAVIS Self - patient is the insured [facility] [address] [place], [place] [id number] [phone] [id number] TAYLOR DAVIS Self - patient is the insured MEDICAL (GENERAL) HISTORY Medical History History ICD Code Colonoscopy in 2003 with a t ubular adenoma removed and 04/2009 with a hyperplastic polyp--sigmoid diverticulosis and internal hemorrhoids Upper endo in 04/2009 with er osive esoophagitis and Perez's--F/U EGD in 11/2009 neg esophagitis and Bx neg for Perez's--she does have a large hiatal hernia. 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
--- OUTSIDE RECORDS SUMMARY | 2024-04-15 06:16 | XMS_ITS ---
Author Organization [facility] Address [address] [place] [address] Care Team Providers Care Cardiothoracic Surgeon Name Role Phone Paul Vela MD Primary Care Provider Unavailab Paul Rios Unavailable [phone] ALLERGIES No Known Allergies REASON FOR VISIT patient presents today for Anal pain MEDICATIONS Medication SIG (Take, Route, Frequency, Duration) [...] Tylenol PM Extra Strength Active tylenol Active PROBLEMS Problem Type ICD Code Onset Dates Problem Status W/U Status Risk SNOMED Code Notes Problem Rectal pain (K62.89) Active confirmed 37937168 VITAL SIGNS BMI 36.43 kg/m2 10/16/2022 Blood pressure systolic 000 mm Hg 10/17/19 23 Blood pressure diastolic 00 mm Hg 023 Height 61.5 in 10/16/2022 Temperature 97.2 degrees Fahrenheit 10/17/19 23 Weight 196 lbs 10/16/2022 Encounters Encounter Location Date Provider [facility] [address] [place] [address] 10/16/2022 Paul Coy Rectal pain K62.89 ASSESSMENTS Encounter Date Diagnosis Assessment Notes Treatment Notes Treatment Clinical Notes 10/16/2022 Rectal pain (ICD-10 - K62.89) Start an Anusol or Preparation H suppository every night at bedtime for at least 1 week, and then as needed, Continue Metamucil daily. If the pain persists you will need a referral to see Dr. Baez, a Colorectal surgeon, so he can check for a fissure . Otherwise, I will see you in 11/2024 for your next colonoscopy. PLAN OF TREATMENT Treatment Notes Assessment Notes Rectal pain Start an Anusol or Preparation H suppository every night at bedtime for at least 1 week, and then as needed, Continue Metamucil daily. If the pain persists you will need a referral to see Dr. Baez, a Colorectal surgeon, so he can check for a fissure . Otherwise, I will see you in 11/2024 for your next colonoscopy. Next Appt Details Follow Up: prn, Reason: Progress Notes * Examination Category Sub-Category Detail Notes General Examination GENERAL APPEARANCE: pleasant , well nourished, well developed, in no acute distress EYES: sclera non-icteric NECK/THYROID: no cervical lymphade nopathy, neck supple HEART: S1, S2 normal LUNGS: clear to auscultatio n bilaterally ABDOMEN: normal bowel sounds, no guarding or rigidity, no hepatosplenomegaly, no masses palpable, soft, nontender, nondistended. NEUROLOGIC: alert and oriented SKIN: nonjaundiced, no spi jorgito angiomata. EXTREMITIES: no edema RECTAL EXAM: The perianal area wa s examined and there was no sign of any type of fistula, tenderness, redness, fluctuance, nor drainage. A digital exam was not done but the anal canal was not tender at all. There was no obvious fissure visible. ORAL CAVITY: mucosa moist
--- OUTSIDE RECORDS SUMMARY | 2024-04-15 06:16 | XMS_ITS ---
Author Organization [facility] Address [address] [place] [address] Care Team Providers Care Tester/Lift Trucker Name Role Phone Paul Vela MD Primary Care Provider Unavailab Paul Rios Unavailable [phone] REASON FOR VISIT Pt no show Encounters Encounter Location Date Provider Diagnosis [facility] [address] [place] [address] 10/14/2022 Paul Coy PLAN OF TREATMENT No Information
--- OUTSIDE RECORDS SUMMARY | 2024-04-15 06:16 | XMS_ITS ---
Author Organization [facility] Address [address] [place] [address] Care Team Providers Care Machine Ii Coremaker Name Role Phone Paul Vela MD Primary Care Provider Unavailab Patricia Tipton Unavailable [phone] Jovanni Douglas Unavailable [phone] Allergies No Known Allergies REASON FOR VISIT Last Visit PCP: 04/2023 Medications Medication SIG (Take, Route, Frequency, Duration) Notes Start Date End Date Status Work Note . . . patient may return to full work duties on 10/07/16 09/29/2016 Not-Taking Work Note . . . patient is disabled from work due to surgery until 09/18/16 Not-Taking Omeprazole 40 MG as directed Orally Active Work Note . . . pt is disabled from work until 07/30/15 she may return to work 07/25/2015 Not-Taking Work Note . . . pt is disabled from work until 07/30/15 she may return to work Not-Taking Atorvastatin Calcium 20 MG 1 tablet Orally Once a day Active Valsartan 80 MG 1 tablet Orally Once a day Active Metamucil Active Levothyroxine Sodium Between 50m g 75mg Active Social History Tobacco Use: Social History [...] No Vital Signs Height 5ft 2in in 07/06/2023 Weight 197 lbs 07/06/2023 BMI 36.03 kg/m2 07/06/2023 Blood pressure systolic 120 mm Hg 07/06/19 24 Blood pressure diastolic 80 mm Hg 024 Encounters Encounter Location Date Provider Diagnosis [facility] [address] [address] 07/06/2023 Jovanni Douglas Ingrowing nail L60.0 ; Tinea [...] Treatment Notes Treatment Clinical Notes Section Notes 07/06/2023 Ingrowing nail (ICD-10 - L60.0) 07/06/2023 Tinea unguium (ICD-10 - B35.1) 07/06/2023 Metatarsalgia, left foot (ICD-10 - M77.42) 07/06/2023 Metatarsalgia, right foot (ICD-10 - M77.41) 07/06/2023 Other hammer toe(s) (acquired), left foot (ICD-10 - M20.42) 07/06/2023 Other hammer toe(s) (acquired), right foot (ICD-10 - M20.41) 07/06/2023 Raynaud's disease without gangrene (ICD-10 - I73.00) 07/06/2023 Localized edema (ICD-10 - R60.0) 07/06/2023 Plantar fascial fibromatosis (ICD-10 - M72.2) 07/06/2023 Xerosis cutis (ICD-10 - L85.3) Plan Of Treatment Next Appt Details Follow Up: 3 Months, Reason: Provider Name:Patricia Chaudhry shukri, 06/06/2024 10:15:00 AM, [address] [place], [address], Progress Notes * Khalida KEATING LDOB:1950 (73 yo F)Acc No.[id number]:07/06/2023 Progress Note Patient:?Khalida Keating Provider:?Jovanni Douglas DPM :1950???Age:73 Y???Sex:Female D ate:07/06/2023 Address:[address] [place], [place] [id number] Pcp:Paul Vela MD Subjective: * Chief Complaints: * ???Last Visit PCP: 04/2023 * HPI: ???Skin problems:?Nature:?discolored.?Location:?B/L .?Duration:?several months.?Onset/Cause:?gradual, unknown.?Foot Pain:?Nature:?cramping, tenderness, numbness.?Location:?Bottom, Forefoot, Midfoot, B/L, L>R.?Duration:?several months.?Onset:?unknown.?Course:?intermittent.?Aggrevated:?any pressure.?Treatments:?proper shoes and? poor compliance with orthoses; [...] yes, walking,yard work. ?Marital status: single. 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 * Medications:?TakingValsartan 80 MG Tablet 1 [...] T7, T9.?Neurological: ?SENSORY:?Neurological exam demonstrates pop plantar mtpj's johnson.?Vascular: ?DP PULSES:? 02/26, B/L.?PT PULSES:? [...] have encouraged the patient to call the office.? * Follow Up:?3 Months * Images: * Sign off status: Completed true * Provider:?Jovanni Douglas DPM Date:? 024 Generated for Jess carbajal/Darinel/Hiramitting on:?04/15/2024 06:15 AM EST History and Physical Notes * HPI (History of Present Illness) Category Sub-Category Detail Notes Category Not es Skin problems Nature: discolored Location: B/L Duration: several months Onset/Cause: gradual, unknown Foot Pain Nature: cramping, tenderness, numbne ss Location: Bottom, Forefoot, Mi dfoot, B/L, L>R Duration: several months Onset: unknown Course: intermittent Aggravated: any pressure Treatments: proper shoes and poor compliance with orthoses ; pt has been dehydrated lately Severity/Quality: moderate Examination Category Sub-Category Detail Notes Category Not es Ingrown Nail INSPECTION: Reveals nail inc urvation, pain on palpation, groove hypertrophy, groove ischemia, Bilateral nail borders, TA, T5, T7 Neurological SENSORY: Neurological exa m demonstrates pop plantar mtpj's johnson Dermatologic SKIN FINDINGS: Skin exam [...] and ti me Vascular DP PULSES (B): 1/4, B/L PT PULSES (B): 1/4, B/L CAPILLARY FILL TIME: delayed, all digits , B/L TEMPERTURE GRADIENT (C): decreased, cool to cold, proximal to distal, B/L TROPHIC CONDITION-TEXTURE/ELASTICITY/TURGOR/HAIR GROWTH (B): decreased, B/L EDEMA (C): 1/4, B/L, Feet, Ankl e(s), Leg(s) PIGMENTATION: cyanotic, B/L Nails NAILS are: Elongated, overg rown, dystrophic, lytic, greater than 3mm thick, discolored and friable with crumbly malodorous subungual debris, T5, T7, T9
--- OUTSIDE RECORDS SUMMARY | 2024-04-15 06:16 | XMS_ITS ---
Author Organization Paul Vela III, MD Address [address] [place] [address] Care Team Providers Care Boot Lace Cutter Machine Name Role Phone Paul Vela Primary Care Provider REASON FOR VISIT ? Rx Social History Sex Assigned At : Social History Observation Description Sex Assigned At Female Encounters Encounter Location Date Provider Diagnosis Paul Vela III, MD [address] [place] [address] [place] [address] 01/08/2024 Paul Vela Plan Of Treatment Next Appt Details Provider Name:Paul Vela, 04/25/2024 10:00:00 AM, [address] [place] [address] [place], [id number], Provider Name:Paul Vela, 12/27/2024 09:30:00 AM, [address] [place] [address] [place], [phone], Progress Notes * Amirah KEATINGOB:[birth year] (73 yo F)Acc No.[id number]:01/08/2024 Patient:?Khalida KEATING :1950???Age:73 Y???Sex:Female Address:[address] [place] [address], [phone] * true * Date:? Generated for Printi ng/Faxing/eTransmitting on:?04/15/2024 06:16 AM EST
--- OUTSIDE RECORDS SUMMARY | 2024-04-15 06:16 | XMS_ITS ---
Author Organization Paul Vela III, MD Address [address] [place] [address] Care Team Providers Care Hop Strainer Name Role Phone Paul Vela Primary Care Provider Allergies Allergen (clinical drug [...] Provider Speciality Internal M edicine Referred Organization [facility] nter Referred Provider [facility] er, [facility] Referred Address [address] [place] [id number], Referred Provider Specialty Physical [facility] [...] Risk Notes Problem DM - Diabetes mellitus (23154729) DM (diabetes mellitus) (E11.9) Active confirmed Vital Signs Temperature 97.3 degrees Fahrenheit 01/25/20 24 Blood pressure systolic 134 mm Hg 01/25/20 24 Blood pressure diastolic 81 mm Hg 024 Heart Rate 70 /min 01/25/2024 Height 62 in 01/25/2024 Weight 186 lbs 01/25/2024 BMI 34.02 kg/m2 01/25/2024 Encounters Encounter Location Date Provider Diagnosis Paul Vela III, MD [address] [place] [address] [place] [address] 01/25/2024 Paul Vela Type 2 diabetes mellitus [...] right sh oulder pain, [facility], [address] [place] [address], [place], [place], [id number], Next Appt Details Follow Up: 3 Months, Reason: ov review labs Provider Name:Paul Vela, 04/25/2024 10:00:00 AM, [address] [place] [address] [place], [place], [id number], Provider Name:Paul Vela, 12/27/2024 09:30:00 AM, [address] [place] [address] [place], [place], [phone], Progress Notes * Amirah KEATINGOB:[birth year] (73 yo F)Acc No.[id number]:01/25/2024 Progress Notes Patient:Khalida YOST Provider:?Paul Vela MD :1950???Age:73 Y???Sex:Female D ate:01/25/2024 Address:[address] [place] [address] [place], [id number] Subjective: * Chief Complaints: * ???Right biceps tendon.Diabe tesLeft breast cancerHearing lossHypothyroidHyperlipidemiaParents esophagus * HPI: ???COVID-19 Screening:?Questions?Have you experienced fever, chills, cough, sore throat, shortness of breath, difficulty breathing, muscle aches, loss of taste or smell??No ?Have you been exposed to the virus within the last 10 days??No ?Have you travelled internationally in the last 10 days??No ?Have you been exposed to COVID-19 in the past??No ???:? The patient, a 73-year-old female, reported experiencing pain in her right arm. The pain initially started in 2019 after receiving her COVID-19 vaccination. Although the pain was persistent, it did not hinder her daily activities. However, in the last three months, the pain has significantly worsened. The patient noticed a 'twang' sound during her yoga and swimming exercises, particularly when making full [place] movements with her arm. This was followed by difficulty in moving her arm upwards. The pain seems to originate from her shoulder and radiates down her arm. The patient's niece, who is into sports, suggested that the issue might be with her shoulder. The doctor suspects that the patient might have tendonitis or bursitis. * ROS:?General/Constitutional:?Admits?pain,?Right shoulder insertion of biceps tendon, reproduced with biceps contraction, no pain to elevation of right arm, otherwise only normal aches and pains.?Chills?denies.?Fatigue?admits.?Fever?denies.?ENT:?Decreased hearing?denies.?Respiratory:?Cough?denies.?Cardiovascular:?Chest pain with exertion?denies.?Dyspnea on exertion?denies.?Shortness of breath?denies.?Gastrointestinal:?Constipation?occasional.?Decreased appetite?denies.?Diarrhea?denies.?Heartburn?denies.?Nausea?denies.?Rectal bleeding?denies.?Vomiting?denies.?Hematology:?bruising?denies.?petechiae?denies.?Swollen glands?none have been noted.?Genitourinary:?Frequent urination?denies.?Musculoskeletal:?Muscle aches?denies.?Painful joints?denies.?Sciatica?denies.?Weakness?denies.?Skin:?Itching?denies.?Rash?denies.?Skin lesion(s)?denies.?Neurologic:?Difficulty speaking?denies.?Dizziness?denies.?Headache?denies.?Low back pain?denies.?Psychiatric:?Depressed mood?denies.? * Medical History:? * Surgical History:?pilonidial cyst 1971cyst/ abscess on back 1998excision and revision of scars left leg 1989Left breast mastectomy @ [facility] 03/10/1999Right breast mastectomy @ [facility] 08/13/1999Stage 2 reconstruction of left breast; saline implant 10/18/1999Stage 2 reconstruction of right breast; saline implant 04/03/2000Colonoscopy 12/15/2003Colonoscopy; EGD with biopsy 05/09/2009EGD with biopsy 11/29/2009EGD with biopsy 01/12/2013colonoscopy, Dr. Coy, onetubular adenoma 2015biopsy on head 08/2019Colonoscopy 11/2019left eye lazer treatment 06/2020No history * Hospitalization/Major Diagno stic Procedure:?No history * Family History:?Father: dece ased 88 yrs, Parkinsons, congestive heart failure,, diagnosed with CVD.?Mother: 89 yrs, Triple bypass, Stroke, Hearing loss, allergies, Cataracs, High cholesterol, diagnosed with CVD.?Siblings: alive, Oldest sister have breast cancer.?Paternal aunt: alive, diagnosed with Cancer.?2 brother(s) , 2 sister(s) . .? Her siblings health is remarkable for arthritis. On her mother\\'s side 2 cousins have of breast cancer. On her father's side 2 aunts have had breast cancer. There is no family history of ovarian cancer colon cancer prostate cancer or pancreatic cancer. She is not aware of any family history of mental illness or addictions or substance abuse. * Social History:?Tobacco Use:?Tobacco Use/Smoking?Patient is a?former smoker ?How long has it been since you last smoked??> 10 years ?Additional Findings: Tobacco Non-User?Ex-cigarette smoker ?Tobacco Control (Standard)?Tobacco use:?Former smoker ?How long has it been since you last smoked??Greater than 10 years ?Additional Findings: Tobacco non-user?Ex-cigarette smoker ???She was born in [place]. She is single with no children. She works at the [employer]. * Medications:?TakingOmeprazol e 40 MG Capsule Delayed Release TAKE 1 [...] reviewed and reconciled with the patient * Allergies:?Bee StingSeasonal laurel[Allergies Verified] Objective: * Vitals:?Ht: 62, Wt:186, BMI: 34.02, BP:134/81, HR:70, Temp:97.3, Ht-cm: 157.48, Wt-k.37. * ???Past Orders: Lab:Thyroid Stimulating Horm one * Collection [...] (Ref Range: 4.8-10.8 X10*3/uL) Red Blood Count 4.10?L (Ref Range: 4.20-5.50 X10*6/uL) 4.27 (Ref Range: [...] (Ref Range: 160-400 X10*3/uL) Mean Platelet Volume 9.3?L (Ref Range: 9.4-12.3 fL) 9.2?L (Ref Range: 9.4-12.3 fL) 9.1?L (Ref Range: 9.4-12.3 fL) Neutrophils Percent Auto 43.4?L (Ref Range: 45-73 %) 41.6?L (Ref Range: 45-73 %) 42.9?L (Ref Range: 45-73 %) Imm Gran Pct Auto 0.6?H (Ref Range: 0.0-0.4 %) 0.4 (Ref Range: 0.0-0.4 %) 0.5?H (Ref Range: 0.0-0.4 %) Lymphocytes Percent Auto 40.4?H (Ref Range: 20-40 %) 41.1?H (Ref Range: 20-40 %) 40.5?H (Ref Range: 20-40 %) Monocytes Percent Auto 10.2 (Ref Range: 2-11 %) 9.0 (Ref Range: 2-11 %) 9.3 (Ref Range: 2-11 %) Eosinophils Percent Auto 4.1?H (Ref Range: 0-4 %) 6.5?H (Ref Range: 0-4 %) 5.7?H (Ref Range: 0-4 %) Basophils Percent Auto [...] 0.00-0.03 X10*3/uL) 0.02 (Ref Range: 0.00-0.03 X10*3/uL) 0.04?H (Ref Range: 0.00-0.03 X10*3/uL) Lymphocytes Absolute Auto [...] AM Order Date 01/18/2024 12/14/2023 08/06/2023 Sodium 134?L (Ref Range: 135-145 mmol/L) 137 (Ref Range: 135-145 mmol/L) 136 (Ref Range: 135-145 mmol/L) Bilirubin Total 0.7 (Ref Range: 0.0-1.0 mg/dL) 0.6 (Ref Range: 0.0-1.0 mg/dL) 0.5 (Ref Range: 0.0-1.0 mg/dL) Aspartate Amino Transferase 29 (Ref Range: 5-31 U/L) 40?H (Ref Range: 5-31 U/L) 27 (Ref Range: 5-31 U/L) Alanine Aminotransferase 26 (Ref Range: 0-31 U/L) 35?H (Ref Range: 0-31 U/L) 28 (Ref Range: [...] 14 (Ref Range: 12-20) Blood Urea Nitrogen 18?H (Ref Range: 9-16 mg/dL) 14 (Ref Range: 9-16 mg/dL) 15 (Ref Range: 9-16 mg/dL) Creatinine 0.99 (Ref Range: 0.5-1.4 mg/dL) 0.95 (Ref Range: 0.5-1.4 mg/dL) 0.91 (Ref Range: 0.5-1.4 mg/dL) Estimated Glomerular Filt Rate 55 58 > 60 Glucose Fasting 114?H (Ref Range: 60-99 mg/dL) 126?H (Ref Range: 60-99 mg/dL) 135?H (Ref Range: 60-99 mg/dL) Calcium 9.9 (Ref [...] (Ref Range: mg/L) Microalbum Creatinine Ratio Ur 33.8?H (Ref Range: <30 ug/mg cr) 24.1 (Ref Range: <30 ug/mg cr) 55.0 (Ref Range: ug/mg cr) * Lab:Hemoglobin A1c * Collection Date 01/18/2024 03/30/2023 12/22/2022 Collection Time 06:23 AM 06:35 AM 09:01 AM Order Date 01/18/2024 03/24/2023 12/19/2022 Hemoglobin A1c % 6.1?H (Ref Range: <6.0 %) 6.2?H (Ref Range: <6.0 %) 6.0 (Ref Range: [...] 01/05/2024) (Performed Date - 01/05/2024) * Examination: ???General Examination: ?GENERAL APPEARANCE:?pleasant, well nourished, well developed, in no acute distress, calm and relaxed, obese, woman.?HEAD:?atraumatic, normocephalic.?EYES:?eomi, perrla, anicteric, conjugate.?EARS:?Normal anatomy with mild hearing loss.?NOSE:?septum intact.?ORAL CAVITY:?normal, unremarkable.?NECK/THYROID:?no jugular venous distention, no carotid bruit, thyroid normal.?LYMPH NODES:?no enlarged lymph nodes,spleen normal.?SKIN:?no suspicious lesions, anicteric.?HEART:?no clicks, gallops, murmurs, or rubs, regular rhythm, S1, S2 normal, no s3, or vascular bruits.?LUNGS:?clear to auscultation .?BREASTS:?Bilateral mastectomy sites well healed with no sign of relapse breast cancer.?ABDOMEN:?bowel sounds normal, no ascites, no organomegaly, no mass.?RECTAL EXAM:?not examined.?MUSCULOSKELETAL:?extremities unremarkable, no clubbing, cyanosis or edema, Tenderness over biceps tendon insertion at the shoulder.?PERIPHERAL PULSES:?normal.?NEUROLOGIC:?alert and oriented, cranial nerves 2-12 grossly intact, deep tendon reflexes 2+ symmetrical, motor strength normal upper and lower extremities, sensory exam intact.?PSYCH:?alert, oriented.? : ???Shoulder examination:The doctor examined the patient's shoulder and arm, suspecting tendonitis or bursitis. The patient reported pain in her arm, particularly when moving it upwards. ??? Assessment: * Assessment: 1.?Type 2 diabetes mellitus without complication, without long-term current use of insulin - E11.9 (Primary)???Notes :She has been compliant with therapy and her hemoglobin A1c is 6.1.? We discussed weight loss. She has lost 5 pounds.? No change in her therapy was made.???2.?Essential hypertension - I10???Notes :Her blood pressure is controlled on her current regimen of lisinopril and valsartan, which was continued without change today.???3.?Obesity (BMI 35.0-39.9 without comorbidity) - E66.01???Notes :She has lost 5 pounds in her body mass index is 34.? We discussed her weight loss strategy.? She will continue to lose weight at a rate of one half of a pound per week.???4.?Acute pain of right shoulder - M25.511???Notes :At her request she has been referred for physical therapy.? She will avoid heavy lifting.? She will use Tylenol and ibuprofen.? An x-ray was ordered.? If necessary she will be sent to orthopedics.??? Plan: * Treatment: 2.?Essential hypertension? Continue Aspir-Low Tablet Delayed Release, 81 MG, 1 tablet, Orally, Once a day;?Continue Econazole Nitrate Cream, 1 %, 1 application, Externally, Once a day;?Continue Hydrocortisone (Perianal) Cream, 1 %, 1 application, Externally, Twice a day;?Continue Tylenol PM Extra Strength Tablet, 500-25 MG, 1 tablet at bedtime as needed, Orally, Once a day;?Continue glipiZIDE Tablet, 5 MG, 1 tablet 30 minutes before breakfast, Orally, Once a day;?Continue Ozempic (0.25 or 0.5 MG/DOSE) Solution Pen-injector, 2 MG/3ML, 0.25 mg, Subcutaneous, weekly.?LAB: PROFILE, FASTING (COMPREHENSIVE METABOLIC) ?LAB: CBC w DIFF ?LAB: Lipid Panel ?LAB: Hemoglobin A1c 3.?Obesity (BMI 35.0-39.9 wi thout comorbidity)?LAB: PROFILE, FASTING (COMPREHENSIVE METABOLIC) ?LAB: CBC w DIFF ?LAB: Lipid Panel ?LAB: Hemoglobin A1c 4.?Acute pain of right shoul jorgito?Imaging: XR SHOULDER RT 2 VIEWS? Referral To:[facility]??Physical Therapist ?Reason:right shoulder pain 5.?Others? Continue Omeprazole Capsule Delayed Release, 40 MG, TAKE 1 CAPSULE BY MOUTH EVERY DAY;?Continue Atorvastatin Calcium Tablet, 20 MG, TAKE 1 TABLET BY MOUTH EVERY DAY;?Continue Levothyroxine Sodium Tablet, 50 MCG, TAKE 1 TABLET BY MOUTH EVERY OTHER DAY;?Continue Valsartan Tablet, 80 MG, 1 tablet, Orally, Once a day.?? * Labs:? * ?Lab: RBS/Hemocue glucos e (Collection Date & Time - 01/25/2024) ? Value Reference Range ?RBS 71 * Procedure Codes:?45045 ASSAY , GLUCOSE, BLOOD QUANT * Preventive Medicine:? ??Counseling:?Care goal follow-up plan:?Counseling for abnormal BMI given?Yes ?Above Normal BMI Follow-up?Dietary management education, guidance, and counseling, Dietary needs education, Exercise promotion: strength training, Exercise promotion: stretching, Feeding regime, Giving encouragement to exercise, Lifestyle education regarding diet, Nutrition / feeding management, Nutrition therapy, Prescribed activity/exercise education, Prescribed diet education, Prescribed dietary intake, Special diet education, Weight monitoring , Intervention, Order not done: Medical or Other reason not done ?Smoking/Tobacco Use?Patient counseled on the dangers of tobacco use and urged to quit.?01/25/2024 ??DM Care Plan:?Patient Lifestyle Goals?Patient wants to be able to manage diabetes without too much effort.?Treatment Goals?HbA1C < 7.0, Blood Sugars less than < 115.?Barriers?no barriers.?Self-Managment Goals?Work on weight loss, with a goal of losing 1 lb per week.? * Follow Up:?3 Months (Reason: ov review labs) * Images: * Sign off status: Completed true * Provider:?Paul Vela MD Date:?03/2023 Generated for Printi ng/Faxing/eTransmitting on:?04/15/2024 06:15 AM EST History and Physical [...] Referral Date Referring Provider Referred Provider Not es 01/25/2024 Paul Vela [facility], [facility] Therapy right shoulder pain
[2024-04-15 10:06] LABS: MANUAL DIFF FLAG NO
[2024-04-15 10:11] LABS: Basophils Absolute Auto 0.1 X10*3/uL (0.0-0.2); Basophils Percent Auto 1.4 % (0-2); Eosinophils Absolute Auto 0.2 X10*3/uL (0.0-0.4); Eosinophils Percent Auto 3.3 % (0-4); Hematocrit 39.3 % (37.0-47.0); Hemoglobin 13.4 g/dl (12.0-16.0); Imm Gran Abs Auto 0.02 X10*3/uL (0.00-0.03); Imm Gran Pct Auto 0.3 % (0.0-0.4); Lymphocytes Absolute Auto 2.5 X10*3/uL (1.2-4.9); Lymphocytes Percent Auto 42.8 % (20-40); Mean Corpuscular HGB Conc 34.1 g/dl (31.0-35.0); Mean Corpuscular Hemoglobin 32.1 pg (27.0-33.0); Mean Platelet Volume 9.1 fL (9.4-12.3); Monocytes Absolute Auto 0.5 X10*3/uL (0.1-1.2); Neutrophils Absolute Auto 2.5 x10*3/uL (2.0-8.3); Neutrophils Percent Auto 43.2 % (45-73); Platelet Count 369 X10*3/uL (160-400); Red Blood Count 4.18 X10*6/uL (4.20-5.50); White Blood Count 5.8 X10*3/uL (4.8-10.8)
[2024-04-15 10:34] LABS: Estimated Average Glucose 117 mg/dL; Hemoglobin A1C 133.5126 umol/L; Hemoglobin A1c % 5.7 % (<6.0); Total Hemoglobin (HGBA1C) 3444.3751 umol/L
[2024-04-15 10:35] LABS: Alanine Aminotransferase 25 U/L (0-31); Albumin Level 4.3 g/dL (3.5-5.0); Alkaline Phosphatase 77 U/L (39-117); Anion Gap 14 (12-20); Aspartate Amino Transferase 29 U/L (5-31); Bilirubin Total 0.7 mg/dL (0.0-1.0); Blood Urea Nitrogen 14 mg/dL (9-16); Calcium 9.8 mg/dL (8.4-10.2); Carbon Dioxide 25 mmol/L (22-29); Chloride 103 mmol/L (96-108); Cholesterol 138 mg/dL (<200); Estimated Glomerular Filt Rate > 60; Glucose Fasting 111 mg/dL (60-99); HDL Cholesterol 56 mg/dL (>40); LDL Cholesterol Calculated 65 mg/dL (<100); Potassium 4.6 mmol/L (3.3-5.1); Sodium 137 mmol/L (135-145); Total Protein 7.4 g/dL (6.5-8.0); Triglycerides 86 mg/dL (<150)
== END 2024-04-15 06:13 | disposition home or self-care (01) ==
LOC: HO.HMGCLDS 06:12
PROVIDERS: PCP Internal Medicine Medical Oncology; Visit Provider Internal Medicine Medical Oncology
DX: E11.9 Type 2 diabetes mellitus without complications (principal); I10 Essential (primary) hypertension; E66.01 Morbid (severe) obesity due to excess calories
CPT/HCPCS: 36415; 80053; 80061; 83036; 85025

== ENCOUNTER 2024-07-15 06:37 | Outpatient (REF) | payer MEDICARE, BC, SELFPAY ==
[2024-07-15 10:00] LABS: MANUAL DIFF FLAG NO
[2024-07-15 10:07] LABS: Basophils Absolute Auto 0.1 X10*3/uL (0.0-0.2); Basophils Percent Auto 1.1 % (0-2); Eosinophils Absolute Auto 0.3 X10*3/uL (0.0-0.4); Eosinophils Percent Auto 5.3 % (0-4); Hematocrit 39.5 % (37.0-47.0); Hemoglobin 13.3 g/dl (12.0-16.0); Imm Gran Abs Auto 0.01 X10*3/uL (0.00-0.03); Imm Gran Pct Auto 0.2 % (0.0-0.4); Lymphocytes Absolute Auto 1.9 X10*3/uL (1.2-4.9); Lymphocytes Percent Auto 34.9 % (20-40); Mean Corpuscular HGB Conc 33.7 g/dl (31.0-35.0); Mean Corpuscular Hemoglobin 31.8 pg (27.0-33.0); Mean Corpuscular Volume 94.5 fL (80.0-98.0); Monocytes Absolute Auto 0.6 X10*3/uL (0.1-1.2); Monocytes Percent Auto 11.3 % (2-11); Neutrophils Absolute Auto 2.6 x10*3/uL (2.0-8.3); Neutrophils Percent Auto 47.2 % (45-73); Platelet Count 342 X10*3/uL (160-400); Red Blood Count 4.18 X10*6/uL (4.20-5.50); Red Cell Distribution Width 12.7 % (11.0-16.0); White Blood Count 5.5 X10*3/uL (4.8-10.8)
[2024-07-15 10:17] LABS: Estimated Average Glucose 117 mg/dL; Hemoglobin A1C 137.7956 umol/L; Hemoglobin A1c % 5.7 % (<6.0); Total Hemoglobin (HGBA1C) 3512.9647 umol/L
[2024-07-15 10:34] LABS: Alanine Aminotransferase 28 U/L (0-31); Albumin Level 4.6 g/dL (3.5-5.0); Alkaline Phosphatase 78 U/L (39-117); Anion Gap 13 (12-20); Aspartate Amino Transferase 32 U/L (5-31); Bilirubin Total 0.7 mg/dL (0.0-1.0); Blood Urea Nitrogen 14 mg/dL (9-16); Calcium 9.8 mg/dL (8.4-10.2); Carbon Dioxide 26 mmol/L (22-29); Chloride 105 mmol/L (96-108); Cholesterol 161 mg/dL (<200); Estimated Glomerular Filt Rate > 60; Glucose Fasting 117 mg/dL (60-99); HDL Cholesterol 55 mg/dL (>40); LDL Cholesterol Calculated 81 mg/dL (<100); Potassium 4.8 mmol/L (3.3-5.1); Sodium 139 mmol/L (135-145); Total Protein 7.1 g/dL (6.5-8.0); Triglycerides 126 mg/dL (<150)
[2024-07-15 10:51] LABS: Free T4 (Free Thyroxine) 0.92 ng/dL (0.71-1.85); Thyroid Stimulating Hormone 1.62 uIU/mL (0.32-4.0)
[2024-07-15 12:29] LABS: Creatinine Urine 44.56 mg/dL; Microalbum/Creatinine Ratio Ur 24.6 ug/mg cr (<30)
== END 2024-07-15 06:38 | disposition home or self-care (01) ==
LOC: HO.HMGCLDS 06:37
PROVIDERS: PCP Internal Medicine Medical Oncology; Visit Provider Internal Medicine Medical Oncology
DX: E11.9 Type 2 diabetes mellitus without complications (principal); I10 Essential (primary) hypertension; E66.01 Morbid (severe) obesity due to excess calories; E03.9 Hypothyroidism, unspecified
CPT/HCPCS: 36415; 80053; 80061; 82043; 82570; 83036; 84439; 84443; 85025

== ENCOUNTER → 2024-09-06 10:07 | Outpatient (BNVA) | payer MEDICARE, BC, SELFPAY | PROVIDERS: PCP Internal Medicine Medical Oncology; Referring Provider Internal Medicine Medical Oncology; Visit Provider Registered Nurse | DX: G56.03 Carpal tunnel syndrome, bilateral upper limbs (principal); G57.12 Meralgia paresthetica, left lower limb; Z79.899 Other long term (current) drug therapy | CPT/HCPCS: 99212 ==

== ENCOUNTER → 2024-09-06 10:07 | Outpatient (AMB) | payer MEDICARE, BC, SELFPAY ==
--- OUTSIDE RECORDS SUMMARY | 2024-04-25 06:00 | XMS_ITS ---
Author Organization Paul Vela III, MD Address [address] [place] [address] Care Team Providers Care Histological Illustrator Name Role Phone Paul Vela Primary Care Provider Allergies Allergen (clinical drug ingredient) Drug/Non Drug Allergy documented on EMR Reaction Allergy Type Onset Date Status Bee Sting Unknown Allergy Active Seasonale Unknown Drug Allergy Active REASON FOR VISIT Diabetes, GERD, Breast cancer, Hearing loss, Obesity, Hypothyroid Medications Medication SIG (Take, Route, Frequency, Duration) Notes Start Date End Date Status Hydrocortisone (Perianal) 1 % 1 application Externally Twice a day 05/05/2022 Active Tylenol PM Extra Strength 500-25 MG 1 tablet at bedtime as needed Orally Once a day Active glipiZIDE 5 MG 1 tablet 30 minutes before breakfast Orally Once a day 12/23/2023 Active Econazole Nitrate 1 % 1 application Externally Once a day 10/01/2020 Active Ozempic (0.25 or 0.5 MG/DOSE) 2 MG/3ML 0.25 mg Subcutaneous weekly 12/23/2023 Active Atorvastatin Calcium 20 MG TAKE 1 TABLET BY MOUTH EVERY DAY Active Levothyroxine Sodium 50 MCG TAKE 1 TABLET BY MOUTH EVERY OTHER DAY Active Aspir-Low 81 MG 1 tablet Orally Once a day Active Omeprazole 40 MG TAKE 1 CAPSULE BY MOUTH EVERY DAY Active FreeStyle Lite Test - use to check blood sugar daily In Vitro daily DX: E11.9 Diabetes 01/12/2024 Active Lancets - use to check blood sugar daily DX: E11.9 Diabetes 01/12/2024 Active Alcohol Pads 70 % use to check blood sugar daily DX: E11.9 Diabetes 01/12/2024 Active Gauze Pads 2 X2 use to check blood sugar daily DX: E11.9 Diabetes 01/12/2024 Active FreeStyle Lite w/Device to be use to check blood sugar daily DX: E11.9 Diabetes 01/12/2024 Active Levothyroxine Sodium 75 MCG TAKE 1 TABLET BY MOUTH EVERY OTHER DAY Active Valsartan 80 MG TAKE 1 TABLET BY MOUTH EVERY DAY FOR 90 DAYS Active Vitamin D3 Active Vitamin B12 Active Social History Tobacco Use: Social History Observation Description Date Details (start date - stop date) Former Smoker NA - NA Sex Assigned At : Social History Observation Description Sex Assigned At Female Tobacco Control (Standard) Question Answer Notes Tobacco use: Former smoker How long has it been since you last smoked? [address] ter than 10 years Additional Findings: Tobacco non-user Ex-cigaret te smoker Vital Signs Temperature 97.1 degrees Fahrenheit 04/26/19 25 Blood pressure systolic 135 mm Hg 04/26/19 25 Blood pressure diastolic 76 mm Hg 025 Heart Rate 66 /min 04/25/2024 Height 62 in 04/25/2024 Weight 187 lbs 04/25/2024 BMI 34.2 kg/m2 04/25/2024 Encounters Encounter Location Date Provider Diagnosis Paul Vela III, MD [address] [place] [address] [place] [address] 04/25/2024 Paul Vela Type 2 diabetes zenaida itus without complication, without long-term current use of insulin E11.9 ; Essential hypertension I10 ; Obesity (BMI 35.0-39.9 without comorbidity) E66.01 ; Hypothyroidism E03.9 ; Hearing loss in right ear H91.91 ; History of cancer of left breast Z85.3 ; History of bilateral mastectomy Z90.13 and Former smoker Z87.891 Assessments Encounter Date Diagnosis (ICD Code) Assessment Notes Treat ment Notes Treatment Clinical Notes 04/25/2024 Type 2 diabetes mellitus without complication, without long-term current use of insulin (ICD-10 - E11.9) She has been compliant with therapy and her hemoglobin A1c is 5.7. We discussed weight loss. She has lost 5 pounds. No change in her therapy was made. 04/25/2024 Essential hypertension (ICD-10 - I10) Her blood pressure is controlled on her current regimen of lisinopril and valsartan, which was continued without change today. 04/25/2024 Obesity (BMI 35.0-39.9 without comorbidity) (ICD-10 - E66.01) Her weight has been stable. She has gained 1 pound. We discussed her diet and nutrition. We made a plan to lose weight at a rate of one half of a pound per week. 04/25/2024 Hypothyroidism (ICD-10 - E03.9) Comprehensive blood work including thyroid function tests have been ordered. No change in her regimen was necessary today. She appears to be euthyroid. 04/25/2024 Hearing loss in righ t ear (ICD-10 - H91.91) Her hearing loss is stable and well compensated. She is mild hearing loss in the left ear as well. 04/25/2024 History of cancer of left breast (ICD-10 - Z85.3) There is no sign of recurrent cancer at this time. She reports a sister with breast cancer. She was offered genetic testing and will consider it. No decision was made today. 04/25/2024 History of bilateral mastectomy (ICD-10 - Z90.13) The bilateral mastectomy sites are free relapse. No sign of recurrent breast cancer was noted today. 04/25/2024 Former smoker (ICD-1 0 - Z87.891) She [...] before breakfast Orally Once a day 12/23/2023 Econazole Nitrate 1 % 1 application Externally Once a day 10/01/2020 Ozempic (0.25 or 0.5 MG/DOSE) 2 MG/3ML 0.25 mg Subcutaneous weekly 12/23/2023 Atorvastatin Calcium 20 MG TAKE 1 TABLET BY MOUTH EVERY DAY Levothyroxine Sodium 50 MCG TAKE 1 TABLET BY MOUTH EVERY OTHER DAY Aspir-Low 81 MG 1 tablet Orally Once a day Omeprazole 40 MG TAKE 1 CAPSULE BY MOUTH EVERY DAY FreeStyle Lite Test - use to check blood sugar daily In Vitro daily 01/12/2024 DX: E11.9 Diabetes Lancets - use to check blood sugar daily 01/12/2024 DX: E11.9 Diabetes Alcohol Pads 70 % use to check blood sugar daily 01/12/2024 DX: E11.9 Diabetes Gauze Pads 2 X2 use to check blood sugar daily 01/12/2024 DX: E11.9 Diabetes FreeStyle Lite w/Device to be use to kushal ck blood sugar daily 01/12/2024 DX: E11.9 Diabetes Levothyroxine Sodium 75 MCG TAKE 1 TABLET BY MOUTH EVERY OTHER DAY Valsartan 80 MG TAKE 1 TABLET BY VALERIY TH EVERY DAY FOR 90 DAYS Vitamin D3 Vitamin B12 Pending Test Test Name Order Date PROFILE, FASTING (COMPREHENSIVE METABOLI C) 04/25/2024 TSH (THYROID STIMULATING HORMONE) 2024 CBC WITH AUTO DIFF 04/25/2024 Lipid Panel 04/25/2024 Free T4 (Free Thyroxine) 04/25/2024 Microalbumin, Random 04/25/2024 Hemoglobin A1c 04/25/2024 Next Appt Details Follow Up: 3 Months, Reason: OV Provider Name:Paul Vela, 12/27/2024 09:30:00 AM, [address] [place] [address] [address] [place] [address], [place], [address], Progress Notes * Amirah KEATINGOB:[birth year] (73 yo F)Acc No.[id number]:04/25/2024 Progress Notes Patient: Kyung MIGUEL Khalida Provider: Edd Vela MD :1950 A ge:73 Y S ex:Female Date:04/25/2024 Address:[address] [place] [address], [id number] Subjective: * Chief Complaints: * D iabetesGERDBreast cancerHearing lossObesityHypothyroid * HPI: C OVID-19 Screening: dr zabala. Questions H ave you had any new onset fever, chills, cough, congestion, sore throat, shortness of breath, muscle aches? N o * : The patient, a 73-year-old female, presented with a recurring issue in her right biceps tendon, which had previously improved but worsened again after she was chopping ice. She has been experiencing fluctuations in her blood sugar levels, with some readings being on the lower side. She also reported feeling lightheaded at times. The patient has been trying to maintain a good diet and has been testing her blood sugar levels regularly. She also mentioned that her eyes have been having 'hiccups' and not behaving as they should, which she plans to discuss with her eye doctor in May. The patient also has a hearing disability in her right ear. Blood Sugar Level is 111. Her morning fasting glucose levels have all been under 150. Her lowest was 51. No change in her medication was made today. * ROS: G eneral/Constitutional: pain R ight biceps muscle. C hills d enies. F atigue a dmits. F ever d enies. E NT: Decreased hearing i n the right ear. R espiratory: Cough d enies. C ardiovascular: Chest pain with exertion d enies. D yspnea on exertion?denies. S hortness of breath d enies. G astrointestinal: Constipation o ccasional. D ecreased appetite d enies. D iarrhea d enies. H eartburn c ontrolled with medications. N ausea d enies. R ectal bleeding [...] scars left leg 1988Left breast mastectomy @ [facility] [place]. Austin 03/10/1999[facility]astectomy @ [facility] [place]Dr. Austin 08/13/1999Stage 2 reconstruction of left [...] Social History: T obacco Use: T obacco Control (Standard) T obacco use: F ormer smoker H ow long has it been since you last smoked??Greater than 10 years A dditional Findings: Tobacco non-user E x-cigarette smoker S he was born in [place]. She is single with no children. She works at the [employer] * Medications: T akingVitamin B12 Vitamin D3 FreeStyle Lite w/Device Kit to be use [...] daily , Notes to Pharmacist: DX: E11.9 DiabetesOmeprazole 40 MG Capsule Delayed Release TAKE 1 CAPSULE BY MOUTH EVERY DAY Atorvastatin Calcium 20 MG Tablet TAKE 1 TABLET BY MOUTH EVERY DAY Aspir-Low 81 MG Tablet Delayed Release 1 [...] minutes before breakfast Orally Once a day Levothyroxine Sodium 75 MCG Tablet TAKE 1 TABLET BY MOUTH EVERY OTHER DAY Valsartan 80 MG Tablet TAKE 1 TABLET BY MOUTH EVERY DAY FOR 90 DAYS Taking Vitamin B12 Taking Vitamin D3 Taking FreeStyle Lite w/Device Kit to be [...] 1 TABLET BY MOUTH EVERY DAY Taking Aspir-Low 81 MG Tablet Delayed Release [...] before breakfast Orally Once a day Taking Levothyroxine Sodium 75 MCG Tablet TAKE 1 TABLET BY MOUTH EVERY OTHER DAY Taking Valsartan 80 MG Tablet TAKE 1 TABLET BY MOUTH EVERY DAY FOR 90 DAYS DiscontinuedOzempic (0.25 or 0.5 MG/DOSE) 2 MG/3ML Solution Pen-injector 0.25 mg Subcutaneous weekly Levothyroxine Sodium 50 MCG Tablet TAKE 1 TABLET BY MOUTH EVERY OTHER DAY Medication List reviewed and reconciled with the patientDiscontinued Ozempic (0.25 or 0.5 MG/DOSE) 2 MG/3ML Solution Pen-injector 0.25 mg Subcutaneous weekly Discontinued Levothyroxine Sodium 50 MCG Tablet TAKE 1 TABLET BY MOUTH EVERY OTHER DAY Medication List reviewed and reconciled with the patient * Allergies: B ee Kourtney[Allergies Verified] Objective: * Vitals: H t: 62, Wt:187, BMI:34.2, BP:135/76, HR:66, Temp:97.1, Ht-cm: 157.48, Wt-k.82. * P ast Orders: Lab:Hemoglobin A1c * Collection Date 04/15/2024 01/18/2024 03/30/2023 Collection Time 06:27 AM 06:23 AM 06:35 AM Order Date 04/15/2024 01/18/2024 03/24/2023 Hemoglobin A1c % 5.7 (Ref Range: <6.0 %) 6.1 H (Ref Range: <6.0 %) 6.2 H (Ref Range: <6.0 %) Estimated Average Glucose 117 (Ref Range: mg/dL) 128 (Ref Range: mg/dL) 131 (Ref Range: mg/dL) * Lab:Lipid Panel * Collection Date 04/15/2024 12/14/2023 08/06/2023 Collection Time 07:59 AM 06:17 AM 06:13 AM Order Date 04/15/2024 12/14/2023 08/06/2023 Triglycerides 86 (Ref Range: <150 mg/dL) 144 (Ref Range: <150 mg/dL) 103 (Ref Range: <150 mg/dL) Cholesterol 138 (Ref Range: <200 mg/dL) 165 (Ref Range: <200 mg/dL) 160 (Ref Range: <200 mg/dL) LDL Cholesterol Calculated 65 (Ref Range: <100 mg/dL) 84 (Ref Range: <100 mg/dL) 91 (Ref Range: <100 mg/dL) HDL Cholesterol 56 (Ref Range: >40 mg/dL) 53 (Ref Range: >40 mg/dL) 49 (Ref Range: >40 mg/dL) * Lab:Comprehensive [place]. Pane l Fast * Collection Date 04/15/2024 01/18/2024 12/14/2023 Collection Time 07:59 AM 06:23 AM 06:17 AM Order Date 04/15/2024 01/18/2024 12/14/2023 Sodium 137 (Ref Range: 135-145 mmol/L) 134 L (Ref Range: 135-145 mmol/L) 137 (Ref Range: 135-145 mmol/L) Bilirubin Total 0.7 (Ref Range: 0.0-1.0 mg/dL) 0.7 (Ref Range: 0.0-1.0 mg/dL) 0.6 (Ref Range: 0.0-1.0 mg/dL) Aspartate Amino Transferase 29 (Ref Range: 5-31 U/L) 29 (Ref Range: 5-31 U/L) 40 H (Ref Range: 5-31 U/L) Alanine Aminotransferase 25 (Ref Range: 0-31 U/L) 26 (Ref Range: 0-31 U/L) 35 H (Ref Range: 0-31 U/L) Total Protein 7.4 (Ref Range: 6.5-8.0 g/dL) 7.0 (Ref Range: 6.5-8.0 g/dL) 7.1 (Ref Range: 6.5-8.0 g/dL) Albumin Level 4.3 (Ref Range: 3.5-5.0 g/dL) 4.4 (Ref Range: 3.5-5.0 g/dL) 4.6 (Ref Range: 3.5-5.0 g/dL) Alkaline Phosphatase 77 (Ref Range: 39-117 U/L) 72 (Ref Range: 39-117 U/L) 80 (Ref Range: 39-117 U/L) Potassium 4.6 (Ref Range: 3.3-5.1 mmol/L) 4.6 (Ref Range: 3.3-5.1 mmol/L) 5.1 (Ref Range: 3.3-5.1 mmol/L) Chloride 103 (Ref Range: 96-108 mmol/L) 102 (Ref Range: 96-108 mmol/L) 104 (Ref Range: 96-108 mmol/L) Carbon Dioxide 25 (Ref Range: 22-29 mmol/L) 25 (Ref Range: 22-29 mmol/L) 25 (Ref Range: 22-29 mmol/L) Anion Gap 14 (Ref Range: 12-20) 12 (Ref Range: 12-20) 13 (Ref Range: 12-20) Blood Urea Nitrogen 14 (Ref Range: 9-16 mg/dL) 18 H (Ref Range: 9-16 mg/dL) 14 (Ref Range: 9-16 mg/dL) Creatinine 0.85 (Ref Range: 0.5-1.4 mg/dL) 0.99 (Ref Range: 0.5-1.4 mg/dL) 0.95 (Ref Range: 0.5-1.4 mg/dL) Estimated Glomerular Filt Rate > 60 55 58 Glucose Fasting 111 H (Ref Range: 60-99 mg/dL) 114 H (Ref Range: 60-99 mg/dL) 126 H (Ref Range: 60-99 mg/dL) Calcium 9.8 (Ref Range: 8.4-10.2 mg/dL) 9.9 (Ref Range: 8.4-10.2 mg/dL) 10.1 (Ref Range: 8.4-10.2 mg/dL) * Lab:Complete Blood Count Aut o Diff * Collection Date 04/15/2024 01/18/2024 12/14/2023 Collection Time 06:27 AM 06:23 AM 06:17 AM Order Date 04/15/2024 01/18/2024 12/14/2023 White Blood Count 5.8 (Ref Range: 4.8-10.8 X10*3/uL) 5.4 (Ref Range: 4.8-10.8 X10*3/uL) 5.7 (Ref Range: 4.8-10.8 X10*3/uL) Red Blood Count 4.18 L (Ref Range: 4.20-5.50 X10*6/uL) 4.10 L (Ref Range: 4.20-5.50 X10*6/uL) 4.27 (Ref Range: 4.20-5.50 X10*6/uL) Hemoglobin 13.4 (Ref Range: 12.0-16.0 g/dl) 13.1 (Ref Range: 12.0-16.0 g/dl) 13.5 (Ref Range: 12.0-16.0 g/dl) Hematocrit 39.3 (Ref Range: 37.0-47.0 %) 38.8 (Ref Range: 37.0-47.0 %) 40.4 (Ref Range: 37.0-47.0 %) Mean Corpuscular Volume 94.0 (Ref Range: 80.0-98.0 fL) 94.6 (Ref Range: 80.0-98.0 fL) 94.6 (Ref Range: 80.0-98.0 fL) Mean Corpuscular Hemoglobin 32.1 (Ref Range: 27.0-33.0 pg) 32.0 (Ref Range: 27.0-33.0 pg) 31.6 (Ref Range: 27.0-33.0 pg) Mean Corpuscular HGB Conc 34.1 (Ref Range: 31.0-35.0 g/dl) 33.8 (Ref Range: 31.0-35.0 g/dl) 33.4 (Ref Range: 31.0-35.0 g/dl) Red Cell Distribution Width 12.0 (Ref Range: 11.0-16.0 %) 12.6 (Ref Range: 11.0-16.0 %) 12.6 (Ref Range: 11.0-16.0 %) Platelet Count 369 (Ref Range: 160-400 X10*3/uL) 360 (Ref Range: 160-400 X10*3/uL) 371 (Ref Range: 160-400 X10*3/uL) Mean Platelet Volume 9.1 L (Ref Range: 9.4-12.3 fL) 9.3 L (Ref Range: 9.4-12.3 fL) 9.2 L (Ref Range: 9.4-12.3 fL) Neutrophils Percent Auto 43.2 L (Ref Range: 45-73 %) 43.4 L (Ref Range: 45-73 %) 41.6 L (Ref Range: 45-73 %) Imm Gran Pct Auto 0.3 (Ref Range: 0.0-0.4 %) 0.6 H (Ref Range: 0.0-0.4 %) 0.4 (Ref Range: 0.0-0.4 %) Lymphocytes Percent Auto 42.8 H (Ref Range: 20-40 %) 40.4 H (Ref Range: 20-40 %) 41.1 H (Ref Range: 20-40 %) Monocytes Percent Auto 9.0 (Ref Range: 2-11 %) 10.2 (Ref Range: 2-11 %) 9.0 (Ref Range: 2-11 %) Eosinophils Percent Auto 3.3 (Ref Range: 0-4 %) 4.1 H (Ref Range: 0-4 %) 6.5 H (Ref Range: 0-4 %) Basophils Percent Auto 1.4 (Ref Range: 0-2 %) 1.3 (Ref Range: 0-2 %) 1.4 (Ref Range: 0-2 %) NRBC Pct Auto 0.0 (Ref Range: 0.0-0.2 /100WBC) 0.0 (Ref Range: 0.0-0.2 /100WBC) 0.0 (Ref Range: 0.0-0.2 /100WBC) Neutrophils Absolute Auto 2.5 (Ref Range: 2.0-8.3 x10*3/uL) 2.4 (Ref Range: 2.0-8.3 x10*3/uL) 2.4 (Ref Range: 2.0-8.3 x10*3/uL) Imm Gran Abs Auto 0.02 (Ref Range: 0.00-0.03 X10*3/uL) 0.03 (Ref Range: 0.00-0.03 X10*3/uL) 0.02 (Ref Range: 0.00-0.03 X10*3/uL) Lymphocytes Absolute Auto 2.5 (Ref Range: 1.2-4.9 X10*3/uL) 2.2 (Ref Range: 1.2-4.9 X10*3/uL) 2.3 (Ref Range: 1.2-4.9 X10*3/uL) Monocytes Absolute Auto 0.5 (Ref Range: 0.1-1.2 X10*3/uL) 0.6 (Ref Range: 0.1-1.2 X10*3/uL) 0.5 (Ref Range: 0.1-1.2 X10*3/uL) Eosinophils Absolute Auto 0.2 (Ref Range: 0.0-0.4 X10*3/uL) 0.2 (Ref Range: 0.0-0.4 X10*3/uL) 0.4 (Ref Range: 0.0-0.4 X10*3/uL) Basophils Absolute Auto 0.1 (Ref Range: 0.0-0.2 X10*3/uL) 0.1 (Ref Range: 0.0-0.2 X10*3/uL) 0.1 (Ref Range: 0.0-0.2 X10*3/uL) NRBC Abs Auto 0.000 (Ref Range: 0.0-0.012 X10*3/uL) 0.000 (Ref Range: 0.0-0.012 X10*3/uL) 0.000 (Ref Range: 0.0-0.012 X10*3/uL) * Examination: G eneral Examination: GENERAL APPEARANCE: p leasant, well nourished, well developed, in no acute distress, calm and relaxed, obese, woman, obese, woman. HEAD: a traumatic, normocephalic. EYES: [...] LUNGS: c lear to auscultation . BREASTS: O ld bilateral mastectomies, no sign of recurrent disease. ABDOMEN: b owel sounds normal, no ascites, no organomegaly, no mass, centripital obesity. RECTAL EXAM: n ot examined. MUSCULOSKELETAL: e xtremities unremarkable, no clubbing, cyanosis or edema. PERIPHERAL PULSES: n ormal. NEUROLOGIC: a lert and oriented, cranial nerves 2-12 grossly intact, deep tendon reflexes 2+ symmetrical, motor strength normal upper and lower extremities, sensory exam intact. PSYCH: a lert, oriented. - : u ndefined. Assessment: * Assessment: 1. T ype 2 diabetes mellitus without complication, without long-term current use of insulin - E11.9 (Primary) N otes :She has been compliant with therapy and her hemoglobin A1c is 5.7. We discussed weight loss. She has lost 5 pounds. No change in her therapy was made. 2 . E ssential hypertension - I10 N otes :Her blood pressure is controlled on her current regimen of lisinopril and valsartan, which was continued without change today. 3 . O besity (BMI 35.0-39.9 without comorbidity) - E66.01 N otes :Her weight has been stable. She has gained 1 pound. We discussed her diet and nutrition. We made a plan to lose weight at a rate of one half of a pound per week. 4 . H ypothyroidism - E03.9 N otes :Comprehensive blood work including thyroid function tests have been ordered. No change in her regimen was necessary today. She appears to be euthyroid. 5 . H earing loss in right ear - H91.91 N otes :Her hearing loss is stable and well compensated. She is mild hearing loss in the left ear as well. 6 . H istory of cancer of left breast - Z85.3 N otes :There is no sign of recurrent cancer at this time. She reports a sister with breast cancer. She was offered genetic testing and will consider it. No decision was made today. 7 . H istory of bilateral mastectomy - Z90.13 N otes :The bilateral mastectomy sites are free relapse. No sign of recurrent breast cancer was noted today. 8 . F ormer smoker - Z87.891 N otes :She is highly motivated not to smoke further. She has a plan to prrevent relapse and times of stress and illness. Plan: * Treatment: 2. E ssential hypertension [...] AB: PROFILE, FASTING (COMPREHENSIVE METABOLIC) L AB: TSH (THYROID STIMULATING HORMONE) L AB: CBC WITH AUTO DIFF L AB: Lipid Panel L AB: Free T4 (Free Thyroxine) L AB: Microalbumin, Random L AB: Hemoglobin A1c 3. O besity (BMI 35.0-39.9 without comorbidity) L AB: PROFILE, FASTING (COMPREHENSIVE METABOLIC) L AB: TSH (THYROID STIMULATING HORMONE) L AB: CBC WITH AUTO DIFF L AB: Lipid Panel L AB: Free T4 (Free Thyroxine) L AB: Microalbumin, Random L AB: Hemoglobin A1c 4. H ypothyroidism L AB: PROFILE, FASTING (COMPREHENSIVE METABOLIC) L AB: TSH (THYROID STIMULATING HORMONE) L AB: CBC WITH AUTO DIFF L AB: Lipid Panel L AB: Free T4 (Free Thyroxine) L AB: Microalbumin, Random L AB: Hemoglobin A1c 5. O thers Continue Valsartan Tablet, 80 MG, TAKE 1 TABLET BY MOUTH EVERY DAY FOR 90 DAYS; C ontinue Omeprazole Capsule Delayed Release, 40 MG, TAKE 1 CAPSULE BY MOUTH EVERY DAY; C ontinue Atorvastatin Calcium Tablet, 20 MG, TAKE 1 TABLET BY MOUTH EVERY DAY; C ontinue Levothyroxine Sodium Tablet, 50 MCG, TAKE 1 TABLET BY MOUTH EVERY OTHER DAY. * Procedure Codes: * Preventive Medicine: [...] tobacco use and urged to quit. 0 04/25/2024 DM Care Plan: P atient Lifestyle Goals P atient wants to be able to manage diabetes without too much effort. T reatment Goals H bA1C < 7.0, Blood Sugars less than < 115. B arriers n o barriers. S elf-Managment Goals W ork on weight loss, with a goal of losing 1 lb per week. * Follow Up: 3 Months (Reason: OV) * Images: * Sign off status: Completed true * Provider: Edd Vela MD Date: 04/25/2024 Generated for Jess carbajal/Darinel/eTransmitting on: 0 09/06/2024 11:10 AM EDT History and Physical Notes * HPI (History of Present Illness) Category Sub-Category Detail Notes COVID-19 Screening Questions Have you had any new onset fever, chills, cough, congestion, sore throat, shortness of breath, muscle aches?: No Examination Category Sub-Category Detail Notes General Examination GENERAL APPEARANCE: pleasant , well nourished, well developed, in no acute distress, calm and relaxed, obese, woman, obese, woman HEAD: atraumatic, normocep halic EYES: [...] lesion s, anicteric PERIPHERAL PULSES: normal BREASTS: Old bilateral mastec tomies, no sign of recurrent disease MUSCULOSKELETAL: extremities unremark able, no clubbing, cyanosis or edema LYMPH NODES: no enlarged lymph no dieudonne,spleen normal RECTAL EXAM: not examined PSYCH: alert, oriented ORAL CAVITY: normal, unremarkable
--- NOTE | 2024-09-06 10:24 | A.OFFVIS_ITS ---
Vital Signs 09/06/24 10:29 Height 5 ft 2 in Intake Visit Reasons: 3M Allergies bee pollen (bee stings) Allergy (Verified 09/06/24 10:30) Swelling Medication List - Last Reconciled 09/06/24 by Donya Archuleta CNP atorvastatin 1 tab PO DAILY glipizide 5 mg PO QAM levothyroxine 1 tab PO Q OTHER DAY levothyroxine 1 tab PO Q OTHER DAY omeprazole 1 cap PO DAILY valsartan 80 mg PO DAILY HPI Comments Details: 74-year-old RH woman with history of breast cancer in 1999 s/p left mastectomy and bilateral carpal tunnel syndrome. She started with numbness to both hands, L > R, since around 2022. She frequently wakes up with numbness in both hands. It was particularly noticeable when she holds the phone in her left hand. Occasionally she has to shake her hands when she is holding the steering wheel. She also complains of numbness intermittently in the left lateral thigh area. 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 She tried to use wrist splints, which seemed to help a little at first. More recently, wrist splints seemed to be causing more numbness and tingling in both hands and she stopped using them. It was still particularly noticeable in left hand when using phone. 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 She was still having some intermittent numbness to left lateral thigh. Sleep was up and down. [facility] Medical History (Updated 09/06/24 @ 10:54 by Donya Archuleta CNP) Carpal tunnel syndrome, bilateral upper limbs Meralgia paresthetica Carpal tunnel syndrome Cancer Hard of hearing Hx of Lyme disease Diabetes Thyroid disease GERD (gastroesophageal reflux disease) Elevated cholesterol Surgical History (Updated 09/06/24 @ 10:54 by Donya Archuleta CNP) Hx of knee surgery History of surgical removal of pilonidal cyst Hx of cataract surgery History of esophagogastroduodenoscopy (EGD) H/O colonoscopy Hx of breast reconstruction Social History Patient Tobacco Use Status: Former Tobacco user Review of Systems Const Denies chills, Denies daytime sleepiness, Reports difficulty sleeping, Denies fatigue, Denies fever(s), Denies frequent falls, Denies headache(s), Denies increased appetite, Denies poor appetite, Denies snoring, Denies weakness, Denies weight gain and Denies weight loss Eyes Denies loss of vision ENT Denies vertigo, Denies dizziness, Denies headache(s) and Denies neck pain Card Denies chest pain at rest, Denies chest pain with activity, Denies syncope, D enies leg edema, Denies palpitations, Denies dyspnea and Denies dyspnea on exertion Resp Denies cough, Denies dyspnea, Denies dyspnea on exertion and Denies snoring GI Denies abdominal pain, Denies constipation, Denies heartburn, Denies diarrhea and Denies nausea Denies urinary frequency, Denies urinary incontinence and Denies urinary urgency Musc Denies abnormal gait, Denies back pain, Reports myalgias, Reports arthralgias, Denies neck pain, Reports numbness and Reports tingling Neuro Denies abnormal gait, Denies vertigo, Denies dizziness, Denies syncope, Denies frequent falls, Denies headache(s), Denies lack of coordination, Denies loss of vision, Denies memory loss, Reports numbness, Denies Other visual disturbances, Denies restless legs, Denies seizure-like activity, Reports tingling, Denies paresthesias, Denies tremor(s) and Denies weakness Psych Reports anxiety, Denies depression, Denies auditory hallucinations, Denies memory loss and Denies visual hallucinations Endo Denies fatigue and Denies palpitations Physical Exam Const Other: General Appearance:? normal, in no acute distress. Heart:? S1, S2 normal, no murmurs. Lungs:? clear anteriorly and posteriorly. Musculoskeletal:? normal. Extremities:? no edema. Psych:? alert, oriented, cognitive function intact, cooperative with exam. Neuro Other: Abnormal Neurological Findings:?5-/5 ABP Mental Status: alert and oriented X 3. Normal attention, orientation, memory, and affect. Cranial Nerves: Pupils are equal, round, and reactive to light. External ocular muscles are intact. Visual stephens are full, no ptosis. Face is symmetrical, no facial weakness or droop. Facial sensations are normal. Tongue protrudes in midline. Palate elevates symmetrically. Shoulder shrugging is normal Motor Examination: Normal muscle tone, bulk and strength. No atrophy or fasciculations. No drift of the extended upper extremities. DTR 2+. Plantars are flexor. Straight Leg Raisin degrees. Sensory Exam: Normal light touch, temperature, pinprick, vibration, and joint- position sensations. Rhomberg sign is absent. Coordination: No ataxia. No titubation. Bxfhej-pm-hcvx, moam-aqxi-yicr test, and rapid alternating movements were normal. Gait Exam: Within normal limits. Cerebellar Signs: Awpams-xj-oacz and qltq-yd-tdiq is normal. No dysdiadochokinesia. Extrapyramidal System: No tremor, rigidity with normal facial expressions. No bradykinesia. No bradyphrenia. Normal arm swing and posture. No propulsion or retropulsion. Speech: Normal. No dysphasia or dysarthria. Results Reviewed Results Reviewed: 05/31/24 NCV/ EMG : Mild bilateral carpal tunnel syndrome . Normal EMG. Assessment & Plan Assessment & Plan (1) Carpal tunnel syndrome, bilateral upper limbs: Code(s): G56.03 - Carpal tunnel syndrome, bilateral upper limbs Category: Medical Plan: She tried wrist splints for about 3 months, but made numbness and tingling worse and stopped using. (2) Meralgia paresthetica: Code(s): G57.10 - Meralgia paresthetica, unspecified lower limb Category: Medical Qualifiers: Laterality: left Qualified Code(s): G57.12 - Meralgia paresthetica, left lower limb Plan: She was educated on this condition and its treatment. Recommend exercise and weight loss, wear loose fitting clothes. (3) Carpal tunnel syndrome of right wrist: Code(s): G56.01 - Carpal tunnel syndrome, right upper limb Category: Medical Plan: She tried and failed wrist splints. She was interested in injection for R CTS only. She was hesistent to have L CTS injection due to history of L mastectomy and wanted to see how she did with R side first. Injection ordered. Plan . Coding Level of Care Code Est Pt Level 4 (61191) Diagnoses Carpal tunnel syndrome, bilateral upper limbs G56.03 Meralgia paresthetica of left side G57.12 Laterality: left Carpal tunnel syndrome of right wrist G56.01
--- OUTSIDE RECORDS SUMMARY | 2024-09-06 11:11 | XMS_ITS | Patient Health Record ---
Author Organization [facility] Address [address] [place] [address] Care Team Providers Care Interpretive Naturalist Name Role Phone Paul Vela MD Primary Care Provider Unavailab Patricia Tipton Unavailable [phone] Jovanni Douglas Unavailable [phone] Allergies No Known Allergies Results Component Value Reference Range Notes HEMOGLOBIN A1C (GLYCOHEMOGLO BIN) Reviewed date:06/06/2024 10:15:12 AM Interpretation: Performing Lab: Notes/Report: HEMOGLOBIN A1C % (HH) 5.7 Reason For Referral No Information Medications Medication SIG (Take, Route, Frequency, Duration) Notes Start Date End Date Status Work Note . . . patient is disabled from work due to surgery until 09/18/16 Not-Taking Work Note . . . patient may return to full work duties on 10/07/16 09/29/2016 Not-Taking Omeprazole 40 MG as directed Orally Active Levothyroxine Sodium Between 50m g 75mg Active Atorvastatin Calcium 20 MG 1 tablet Orally Once a day Active Metamucil Not-Taking Valsartan 80 MG 1 tablet Orally Once a day Active glipiZIDE 5 MG 1 tablet 30 minutes before breakfast Orally Once a day Active Work Note . . . pt is disabled from work until 07/30/15 she may return to work Not-Taking Work Note . . . pt is disabled from work until 07/30/15 she may return to work 07/25/2015 Not-Taking Immunizations Vaccine Route Administration Date Status Comme nts COVID-19 Pfizer BioNTech Vaccine Unknown 01/30/2021 Administered 1st 05/01/2020 2nd 05/23/2020 Influenza Unknown 12/05/2021 Administered Influenza Unknown 12/19/2022 Administered Influenza Unknown 11/24/2023 Administered Social History Tobacco Use: Social History Observation Description Date Details (start date - stop date) Never Smoker NA - NA Tobacco use other than smoking: Question Answer Notes Are you an other tobacco user? No Tobacco Control (Standard) Question Answer Notes Tobacco use: Nonsmoker Additional Findings: Tobacco non-user Current no nsmoker AUDIT-C (Standard) Question Answer Notes Did you have a drink containing alcohol in the p ast year? No Points 0 Interpretation Negative Vital Signs Blood pressure diastolic 65 mm Hg 09/05/2024 Height 5ft 2in in 09/05/2024 Blood pressure systolic 126 mm Hg 09/05/2024 Weight 197 lbs 09/05/2024 BMI 36.03 kg/m2 09/05/2024 Procedures Procedure Date Ordered Date Performed Result Body Sit e 73329-JBBFJLC NAIL, 6 OR MORE 01/13/2024 N/A 26353-NLSBOIN NAIL, 6 OR MORE 06/06/2024 N/A 12545-LFXUGMM NAIL, 6 OR MORE 09/05/2024 N/A Encounters Encounter Location Date Provider Diagnosis [address] [address] 10/08/2023 Jovanni Douglas Ingrowing nail L60.0 ; Tinea unguium B35.1 ; Metatarsalgia, left foot M77.42 ; Metatarsalgia, right foot M77.41 ; Other hammer toe(s) (acquired), left foot M20.42 ; Other hammer toe(s) (acquired), right foot M20.41 ; Raynaud's disease without gangrene I73.00 ; Localized edema R60.0 ; Plantar fascial fibromatosis M72.2 and Xerosis cutis L85.[address] [address] 01/13/2024 Patricia Sears Onychomycosis B35.1 ; Pain in right toe(s) M79.674 and Pain in left toe(s) M79.675 [facility] [address] [address] 06/06/2024 Patricia Sears Pain in right toe(s) M79.674 ; Onychomycosis B35.1 and Pain in left toe(s) M79.675 [facility] [address] [address] 09/05/2024 Patricia Sears Pain in right toe(s) M79.674 ; Onychomycosis B35.1 and Pain in left toe(s) M79.675 Assessments Encounter Date Diagnosis (ICD Code) Assessment Notes Treatment Notes Treatment Clinical Notes Section Notes 10/08/2023 Ingrowing nail (ICD-10 - L60.0) 01/13/2024 Pain in right toe(s) (ICD-10 - M79.674) 01/13/2024 Onychomycosis (ICD-10 - B35.1) 06/06/2024 Pain in right toe(s) (ICD-10 - M79.674) 09/05/2024 Pain in right toe(s) (ICD-10 - M79.674) 09/05/2024 Onychomycosis (ICD-10 - B35.1) 06/06/2024 Onychomycosis (ICD-10 - B35.1) 01/13/2024 Pain in left toe(s) (ICD-10 - M79.675) 10/08/2023 Tinea unguium (ICD-10 - B35.1) 09/05/2024 Pain in left toe(s) (ICD-10 - M79.675) 06/06/2024 Pain in left toe(s) (ICD-10 - M79.675) 10/08/2023 Metatarsalgia, left foot (ICD-10 - M77.42) [...] cutis (ICD-10 - L85.3) Plan Of Treatment Pending Test Test Name Order Date 01437-LDNVSBD NAIL, 6 OR MORE 01/13/2024 67233-BBQTHEP NAIL, 6 OR MORE 06/06/2024 92489-ZZNPKRY NAIL, 6 OR MORE 09/05/2024 12550-OBHZOOC NAIL, 1-5 05/14/2015 14960-QTXJYHL NAIL, 1-5 07/19/2015 29639-XJUOFDF NAIL, 1-5 09/04/2016 17377-Odudnfko Plate 05/14/2015 29301-Qvhgphov Plate 09/04/2016 22394-Sriqcazd Plate 07/19/2015 71620-CJS 07/09/2017 60562- Debride <25 sq cm 07/23/2017 33758- Debride <25 sq cm 08/13/2017 56010- Debride <25 sq cm 07/25/2015 61781- Debride <25 sq cm 08/02/2015 73819- Debride <25 sq cm 09/29/2016 47233- Nail Unit Biopsy 06/15/2017 Next Appt Details Provider Name:Patricia Chaudhry shukri, 12/07/2024 09:00:00 AM, [address] [facility], [place], [address], Insurance Providers Payer Name Payer Address Payer Phone Subscriber Number Group Number Insured Name Patient Relationship to Insured Coverage Start Date Coverage End Date Medicare National [employer] [address] [place] [address] [id number] Khalida Keating Self - patient is the insured 8 [facility] [address] [place] [address] [id number] Khalida Keating Self - patient is the insured Medical (General) History Medical History History ICD Code Arthritis Cancer Cataracts Hiatal hernia Sciatica Lyme disease Neuropathy Thyroid disorder Reflux Chicken pox Measles Surgical History Surgery Date(Month/Year) cyst removal 1971 cancer 2000 cataract 2016 lymph nodes removed
--- OUTSIDE RECORDS SUMMARY | 2024-09-06 11:11 | XMS_ITS | Patient Health Record ---
Author Organization [facility] Address [address] [place] [address] Care Team Providers Care Tire Changer Name Role Phone Pual Vela MD Primary Care Provider Unavailab Paul Rios Unavailable [phone] Allergies No Known Allergies Reason For Referral No Information Medications Medication [...] Tylenol PM Extra Strength Active tylenol Active Immunizations Vaccine Route Administration Date Status Comme nts Influenza Unknown 10/24/2018 Administered Influenza Unknown 12/05/2020 Administered Problems Problem Type SNOMED Code ICD Code Onset Dates Problem Status W/U Status Risk Notes Problem 023564888 Encounter for screening for malignant neoplasm of colon (Z12.11) Active confirmed Problem 092765723 History of adenomatous polyp of colon (Z86.010) Active confirmed Problem 63338075 Abdominal pain, epigastric (R10.13) Active confirmed Problem 037402463750192 Preprocedural examination (Z01.818) Active confirmed Problem 814021969 Gastroesophageal reflux disease, esophagitis presence not specified (K21.9) Active confirmed Problem 14487097 Hiatal hernia (K44.9) Active confirmed Problem 53598628 Rectal pain (K62.89) Active confirmed Problem 51734266 Constipation, unspecified constipation type (K59.00) Active confirmed Problem 184893318 Gastroesophageal reflux disease, unspecified whether esophagitis present (K21.9) Active confirmed Plan Of Treatment Pending Test Test Name Order Date US ABD 12/28/2020 Future Test Test Name Order Date COLONOSCOPY 08/03/2014 COLONOSCOPY 10/13/2019 Insurance Providers Payer Name Payer Address Payer Phone Subscriber Number Group Number Insured Name Patient Relationship to Insured Coverage Start Date Coverage End Date MEDICARE OF [place] [address] [place] [address] [id number] TAYLOR DAVIS Self - patient is the insured [facility] [address] [place], [place] [id number] [phone] [id number] TAYLOR DAVIS Self - patient is the insured Medical (General) History Medical History History ICD Code Colonoscopy in [...] with bilat eral mastectomy and chemotherapy Denies PA,CVA,Lung disease,renal disease Colonoscopy in 10/2014 with 2 small tubul ar adenomas removed Negative colonoscopy on 11/2019 Surgical History Surgery Date(Month/Year) Knee surgery Bilateral mastectomy-had a left-sided br east cancer Pilonidal cyst excision Cataracts
== END ==
LOC: HO.HSM 10:08
PROVIDERS: PCP Internal Medicine Medical Oncology; Referring Provider Internal Medicine Medical Oncology; Visit Provider Registered Nurse
DX: G56.03 Carpal tunnel syndrome, bilateral upper limbs (principal); G57.12 Meralgia paresthetica, left lower limb; G56.01 Carpal tunnel syndrome, right upper limb
CPT/HCPCS: 99214

== ENCOUNTER 2024-12-19 06:01 | Outpatient (REF) | payer MEDICARE, BC, SELFPAY ==
--- OUTSIDE RECORDS SUMMARY | 2023-06-29 06:15 | XMS_ITS ---
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 Name Role Phone Dane SMITH, Paul Primary Care Provider Unavailab Patricia Tipton Unavailable [phone] Jovanni Anderson Unavailable [phone] sosa Encounters Encounter Location Date Provider Diagnosis [address] [id number] 06/29/2023 Jovanni Anderson Plan Of Treatment Next Appt Details Provider Name:Patricia Isidoro watt, 03/09/2025 02:45:00 PM, [address] [place] [address], [phone], Progress Notes * SUSANKhalida CHAPIN LDOB:1950 (74 yo F)Acc No.[id number]:06/29/2023 Progress Note Patient: Khalida PEOPLES Provider: Behzad Douglas DPM :1950 A ge:73 Y S ex:Female Date:06/29/2023 Address:[address] [place], [place] [id number] Pcp:Paul Vela MD Subjective: * Chief Complaints: * [address] sosa[address] * Medical History: Objective: * Vitals: Assessment: Plan: * Treatment: * Images: * The named appointment provid er may or may not be the originator of this progress note, and it is not deemed complete until electronically signed by the appointment provider. Sign off status: Pending * Provider: Behzad Douglas DPM Date: 0 06/29/2023 Generated for Jess carbajal/Darinel/Ivania on: 06:06 AM EDT
--- OUTSIDE RECORDS SUMMARY | 2023-08-17 05:00 | XMS_ITS ---
Author Organization Paul Vela III, MD Address [address] [place] [address] [place] [address] Care Team Providers Care Buffer Inflated Pad Name Role Phone Dr. Paul Vela III Primary Care Provider Allergies Allergen (clinical drug ingredient) Drug/Non Drug Allergy documented on EMR Reaction Allergy Type Onset Date Status Bee Sting Unknown Allergy Active Seasonale Unknown Drug Allergy Active REASON FOR VISIT Numbness on left arm and left leg, Diabetes, GERD, Carcinoma left breast, Hearing loss, Obesity, Hypothyroidism, Perez's esophagus, Hyperlipidemia Medications Medication SIG (Take, Route, Frequency, Duration) Notes Start Date End Date Status Atorvastatin Calcium 20 MG TAKE 1 TABLET BY MOUTH EVERY DAY Active Levothyroxine Sodium 50 MCG TAKE 1 TABLE T BY MOUTH EVERY OTHER DAY Active Valsartan 80 MG 1 tablet Orally Once a day 01/23/2023 Active Tylenol PM Extra Strength 500-25 MG 1 tablet at bedtime as needed Orally Once a day Active Aspir-Low 81 MG 1 tablet Orally Once a day Active Econazole Nitrate 1 % 1 application Exte rnally Once a day 10/01/2020 Active Hydrocortisone (Perianal) 1 % 1 application Externally Twice a day 05/05/2022 Active Omeprazole 40 MG TAKE 1 CAPSULE BY [facility] EVERY DAY Active Social History Tobacco Use: Social History Observation Description Date Details (start date - stop date) Former Smoker NA - NA Sex Assigned At : Social History Observation Description Sex Assigned At Female Tobacco Use/Smoking Question Answer Notes Patient is a former smoker How long has it been since you last smoked? > 10 years Additional Findings: Tobacco Non-User Ex-cigaret te smoker Vital Signs Temperature 97.2 degrees Fahrenheit 08/17/19 Blood pressure systolic 130 mm Hg 08/17/19 Blood pressure diastolic 67 mm Hg 024 Heart Rate 77 /min 08/17/2023 Weight 197 lbs 08/17/2023 BMI 36.03 kg/m2 08/17/2023 Encounters Encounter Location Date Provider Diagnosis Paul Vela III, MD [address] [place] [address] [place] [address] 08/17/2023 Paul Vela Essential hypertensi on I10 ; Obesity (BMI 35.0-39.9 without comorbidity) E66.01 ; Former smoker Z87.891 ; History of cancer of left breast Z85.3 ; Hearing loss in right ear H91.91 ; Barretts esophagus K22.70 ; GERD (gastroesophageal reflux disease) K21.9 and Hyperlipidemia type II E78.0 Assessments Encounter Date Diagnosis (ICD Code) Assessment Notes Treatment Notes Treatment Clinical Notes 08/17/2023 Essential hypertension (ICD-10 - I10) Her blood pressure is controlled on her current regimen of lisinopril and valsartan, which was continued without change today. 08/17/2023 Obesity (BMI 35.0-39.9 without comorbidity) (ICD-10 - E66.01) She has gained 3 pounds since her last visit We have discussed diet and nutrition today. We made a plan to lose weight at a rate of one half of a pound per week through regular physical activity on a diet restricted in fat calories and sodium. She will come to the office in the near future to be weighed. 08/17/2023 Former smoker (ICD-10 - Z87.891) She is highly motivated not to smoke further. She has a plan to prrevent relapse and times of stress and illness. 08/17/2023 History of cancer of left breast (ICD-10 - Z85.3) There is no sign of recurrent cancer at this time. She reports a sister with breast cancer. She was offered genetic testing and will consider it. No decision was made today. 08/17/2023 Hearing loss in right ear (ICD-10 - H91.91) Her hearing loss is stable and well compensated. She is mild hearing loss in the left ear as well. 08/17/2023 Barretts esophagus (ICD-10 - K22.70) She is up-to-date with endoscopy. We reviewed the necessity for this and the importance of continued surveillance. 08/17/2023 GERD (gastroesophageal reflux disease) (ICD-10 - K21.9) She has occasional heartburn which is well controlled with csov-cct-hnwslua medications. She sees the ladies' locker room attendant regularly for her Perez's esophagus. Current therapy was continued. 08/17/2023 Hyperlipidemia type II (ICD-10 - E78.0) The control of her lipids scrivener failures are stable. No change in her regimen was needed. Plan Of Treatment Medication Medication Name Sig Start Date Stop Date Notes Atorvastatin Calcium 20 MG TAKE 1 TABLET BY MOUTH EVERY DAY Levothyroxine Sodium 50 MCG TAKE 1 TABLE T BY MOUTH EVERY OTHER DAY Valsartan 80 MG 1 tablet Orally Once a day 01/23/2023 Tylenol PM Extra Strength 500-25 MG 1 tablet at bedtime as needed Orally Once a day Aspir-Low 81 MG 1 tablet Orally Once a day Econazole Nitrate 1 % 1 application Exte rnally Once a day 10/01/2020 Hydrocortisone (Perianal) 1 % 1 applicat ion Externally Twice a day 05/05/2022 Omeprazole 40 MG TAKE 1 CAPSULE BY [facility] EVERY DAY Next Appt Details Follow Up: 2 Months, Reason: ov Provider Name:Paul Vela , 12/27/2024 09:30:00 AM, [address] [place] [address] [address], [place], [address], Progress Notes * Amirah KEATINGOB:[birth year] (73 yo F)Acc No.[id number]:08/17/2023 Progress Notes Patient: Kyung pako Khalida Provider: Edd Vela MD :1950 A ge:73 Y S ex:Female Date:08/17/2023 Address:[address] [place] [address], [id number] Subjective: * Chief Complaints: * N umbness on left arm and left legDiabetesGERDCarcinoma left breastHearing lossObesityHypothyroidismBarrett's esophagusHyperlipidemia * HPI: C OVID-19 Screening: She returns for a scheduled visit to manage numerous medical issues. Her breast cancer remained in remission without relapse. Her blood pressure was stable today. She is compliant with all of her medications. She is up-to-date with endoscopy. She is not smoking. Her blood work was reviewed with her in detail. She has occasional numbness in her left arm when she rotates her neck. This was not reproduced on the exam today. Her reflexes were unremarkable. She has no muscle weakness. Questions H ave you experienced fever, chills, cough, sore throat, shortness of breath, difficulty breathing, muscle aches, loss of taste or smell? N o H ave you been exposed to the virus within the last 10 days? N o H ave you travelled internationally in the last 10 days? N o H ave you been exposed to COVID-19 in the past? N o * ROS: G eneral/Constitutional: pain n keo and spine, otherwise only normal aches and pains. C hills d enies. F atigue a dmits. F ever d enies. E NT: Decreased hearing i n both ears. R espiratory: Cough d enies. C ardiovascular: Chest pain with exertion d enies. D yspnea on exertion?denies. S hortness of breath d enies. G astrointestinal: Constipation o ccasional. D ecreased appetite d enies. D iarrhea d enies. H eartburn d enies. N ausea d enies. R ectal bleeding d enies. V omiting d enies. H ematology: bruising d enies. p etechiae d enies. S wollen glands n one have been noted. G enitourinary: Frequent urination a t night. M usculoskeletal: Muscle aches d enies. P ainful joints d enies. S ciatica d enies. W eakness d enies. S kin: Itching d enies. R fabrizio d enies. S kin lesion(s)?denies. N eurologic: Difficulty speaking d enies. D izziness d enies.?Headache d enies. L ow back pain d enies. P sychiatric: Depressed mood d enies. * Medical History: * Surgical History: p ilonidial cyst 1971cyst/ abscess on back 1997excision and revision of scars left leg 1988Left breast mastectomy @ [facility] – [place] -Dr. Austin 03/10/1999Right breast mastectomy @ [facility] – [place] -Dr. Austin 08/13/1999Stage 2 reconstruction of left breast; saline implant 10/18/1999Stage 2 reconstruction of right breast; saline implant 04/03/2000Colonoscopy 12/15/2003Colonoscopy; EGD with biopsy 05/09/2009EGD with biopsy 11/29/2009EGD with biopsy 01/12/2013colonoscopy, Dr. Coy, onetubular adenoma 2014biopsy on head 08/2019Colonoscopy 11/2019le eye lazer treatment 06/2020 * Hospitalization/Major Diagno stic Procedure: Kyung robles Past Hospitalization * Family History: F ather: 88 yrs, Parkinsons, congestive heart failure,, diagnosed with CVD. M other: 89 yrs, Triple bypass, Stroke, Hearing loss, allergies, Cataracs, High cholesterol, diagnosed with CVD. S iblings: alive, Oldest sister have breast cancer. P aternal aunt: alive, diagnosed with Cancer. 2 brother(s) , 2 sister(s) . . Her siblings health is remarkable for arthritis. On her mother\\'s side 2 cousins have of breast cancer. On her father's side 2 aunts have had breast cancer. There is no family history of ovarian cancer colon cancer prostate cancer or pancreatic cancer. She is not aware of any family history of mental illness or addictions or substance abuse. * Social History: T obacco Use: T obacco Use/Smoking P atient is a f ormer smoker H ow long has it been since you last smoked??> 10 years A dditional Findings: Tobacco Non-User E x-cigarette smoker S he was born in [place]. She is single with no children. She works at the [employer]. * Medications: T akingTylenol PM Extra Strength 500-25 MG Tablet 1 tablet at bedtime as needed Orally Once a dayValsartan 80 MG Tablet 1 tablet Orally Once a dayAspir-Low 81 MG Tablet Delayed Release 1 tablet Orally Once a dayEconazole Nitrate 1 % Cream 1 application Externally Once a dayHydrocortisone (Perianal) 1 % Cream 1 application Externally Twice a dayOmeprazole 40 MG Capsule Delayed Release TAKE 1 CAPSULE BY MOUTH EVERY DAY Levothyroxine Sodium 50 MCG Tablet TAKE 1 TABLET BY MOUTH EVERY OTHER DAY Atorvastatin Calcium 20 MG Tablet TAKE 1 TABLET BY MOUTH EVERY DAY Medication List reviewed and reconciled with the patientTaking Tylenol PM Extra Strength 500-25 MG Tablet 1 tablet at bedtime as needed Orally Once a dayTaking Valsartan 80 MG Tablet 1 tablet Orally Once a dayTaking Aspir-Low 81 MG Tablet Delayed Release 1 tablet Orally Once a dayTaking Econazole Nitrate 1 % Cream 1 application Externally Once a dayTaking Hydrocortisone (Perianal) 1 % Cream 1 application Externally Twice a dayTaking Omeprazole 40 MG Capsule Delayed Release TAKE 1 CAPSULE BY MOUTH EVERY DAY Taking Levothyroxine Sodium 50 MCG Tablet TAKE 1 TABLET BY MOUTH EVERY OTHER DAY Taking Atorvastatin Calcium 20 MG Tablet TAKE 1 TABLET BY MOUTH EVERY DAY Medication List reviewed and reconciled with the patient * Allergies: Tricia Oconnell[Allergies Verified] Objective: * Vitals: W t:197, BMI:36.03, BP:130/67, HR:77, Temp:97.2, Ht-cm: 157.48, Wt-k.36. * P ast Orders: Lab:Free T4 (Free Thyroxine) * Order Date 08/06/2023 03/24/2023 08/29/2022 Free T4 (Free Thyroxine) 0.88 (Ref Range: 0.71-1.85 ng/dL) 0.87 (Ref Range: 0.71-1.85 ng/dL) 0.96 (Ref Range: 0.71-1.85 ng/dL) * Lab:Lipid Panel * Order Date 08/06/2023 03/24/2023 12/09/2022 Triglycerides 103 (Ref Range: <150 mg/dL) 82 (Ref Range: <150 mg/dL) 150 H (Ref Range: <150 mg/dL) Cholesterol 160 (Ref Range: <200 mg/dL) 143 (Ref Range: <200 mg/dL) 168 (Ref Range: <200 mg/dL) LDL Cholesterol Calculated 91 (Ref Range: <100 mg/dL) 76 (Ref Range: <100 mg/dL) 84 (Ref Range: <100 mg/dL) HDL Cholesterol 49 (Ref Range: >40 mg/dL) 51 (Ref Range: >40 mg/dL) 54 (Ref Range: >40 mg/dL) * Lab:Snow marvin Fast * Order Date 08/06/2023 03/30/2023 12/09/2022 Sodium 136 (Ref Range: 135-145 mmol/L) 138 (Ref Range: 135-145 mmol/L) 137 (Ref Range: 135-145 mmol/L) Bilirubin Total 0.5 (Ref Range: 0.0-1.0 mg/dL) 0.4 (Ref Range: 0.0-1.0 mg/dL) 0.9 (Ref Range: 0.0-1.0 mg/dL) Aspartate Amino Transferase 27 (Ref Range: 5-31 U/L) 22 (Ref Range: 5-31 U/L) 28 (Ref Range: 5-31 U/L) Alanine Aminotransferase 28 (Ref Range: 0-31 U/L) 27 (Ref Range: 0-31 U/L) 29 (Ref Range: 0-31 U/L) Total Protein 7.0 (Ref Range: 6.5-8.0 g/dL) 7.0 (Ref Range: 6.5-8.0 g/dL) 7.5 (Ref Range: 6.5-8.0 g/dL) Albumin Level 4.3 (Ref Range: 3.5-5.0 g/dL) 4.3 (Ref Range: 3.5-5.0 g/dL) 4.6 (Ref Range: 3.5-5.0 g/dL) Alkaline Phosphatase 93 (Ref Range: 39-117 U/L) 102 (Ref Range: 39-117 U/L) 79 (Ref Range: 39-117 U/L) Potassium 4.6 (Ref Range: 3.3-5.1 mmol/L) 5.0 (Ref Range: 3.3-5.1 mmol/L) 4.8 (Ref Range: 3.3-5.1 mmol/L) Chloride 102 (Ref Range: 96-108 mmol/L) 104 (Ref Range: 96-108 mmol/L) 102 (Ref Range: 96-108 mmol/L) Carbon Dioxide 25 (Ref Range: 22-29 mmol/L) 24 (Ref Range: 22-29 mmol/L) 25 (Ref Range: 22-29 mmol/L) Anion Gap 14 (Ref Range: 12-20) 15 (Ref Range: 12-20) 15 (Ref Range: 12-20) Blood Urea Nitrogen 15 (Ref Range: 9-16 mg/dL) 11 (Ref Range: 9-16 mg/dL) 11 (Ref Range: 9-16 mg/dL) Creatinine 0.91 (Ref Range: 0.5-1.4 mg/dL) 1.14 (Ref Range: 0.5-1.4 mg/dL) 0.83 (Ref Range: 0.5-1.4 mg/dL) Estimated Glomerular Filt Rate > 60 47 > 60 Glucose Fasting 135 H (Ref Range: 60-99 mg/dL) 138 H (Ref Range: 60-99 mg/dL) 139 H (Ref Range: 60-99 mg/dL) Calcium 9.6 (Ref Range: 8.4-10.2 mg/dL) 9.8 (Ref Range: 8.4-10.2 mg/dL) 9.8 (Ref Range: 8.4-10.2 mg/dL) * Lab:Complete Blood Count Aut o Diff * Order Date 08/06/2023 03/30/2023 12/09/2022 White Blood Count 7.4 (Ref Range: 4.8-10.8 X10*3/uL) 7.2 (Ref Range: 4.8-10.8 X10*3/uL) 6.9 (Ref Range: 4.8-10.8 X10*3/uL) Red Blood Count 4.30 (Ref Range: 4.20-5.50 X10*6/uL) 4.36 (Ref Range: 4.20-5.50 X10*6/uL) 4.56 (Ref Range: 4.20-5.50 X10*6/uL) Hemoglobin 13.5 (Ref Range: 12.0-16.0 g/dl) 13.9 (Ref Range: 12.0-16.0 g/dl) 14.6 (Ref Range: 12.0-16.0 g/dl) Hematocrit 40.4 (Ref Range: 37.0-47.0 %) 40.5 (Ref Range: 37.0-47.0 %) 43.3 (Ref Range: 37.0-47.0 %) Mean Corpuscular Volume 94.0 (Ref Range: 80.0-98.0 fL) 92.9 (Ref Range: 80.0-98.0 fL) 95.0 (Ref Range: 80.0-98.0 fL) Mean Corpuscular Hemoglobin 31.4 (Ref Range: 27.0-33.0 pg) 31.9 (Ref Range: 27.0-33.0 pg) 32.0 (Ref Range: 27.0-33.0 pg) Mean Corpuscular HGB Conc 33.4 (Ref Range: 31.0-35.0 g/dl) 34.3 (Ref Range: 31.0-35.0 g/dl) 33.7 (Ref Range: 31.0-35.0 g/dl) Red Cell Distribution Width 12.4 (Ref Range: 11.0-16.0 %) 12.6 (Ref Range: 11.0-16.0 %) 12.4 (Ref Range: 11.0-16.0 %) Platelet Count 359 (Ref Range: 160-400 X10*3/uL) 372 (Ref Range: 160-400 X10*3/uL) 369 (Ref Range: 160-400 X10*3/uL) Mean Platelet Volume 9.1 L (Ref Range: 9.4-12.3 fL) 9.5 (Ref Range: 9.4-12.3 fL) 9.3 L (Ref Range: 9.4-12.3 fL) Neutrophils Percent Auto 42.9 L (Ref Range: 45-73 %) 49.3 (Ref Range: 45-73 %) 55.4 (Ref Range: 45-73 %) Imm Gran Pct Auto 0.5 H (Ref Range: 0.0-0.4 %) 0.6 H (Ref Range: 0.0-0.4 %) 0.4 (Ref Range: 0.0-0.4 %) Lymphocytes Percent Auto 40.5 H (Ref Range: 20-40 %) 34.3 (Ref Range: 20-40 %) 30.4 (Ref Range: 20-40 %) Monocytes Percent Auto 9.3 (Ref Range: 2-11 %) 9.5 (Ref Range: 2-11 %) 8.8 (Ref Range: 2-11 %) Eosinophils Percent Auto 5.7 H (Ref Range: 0-4 %) 5.0 H (Ref Range: 0-4 %) 3.8 (Ref Range: 0-4 %) Basophils Percent Auto 1.1 (Ref Range: 0-2 %) 1.3 (Ref Range: 0-2 %) 1.2 (Ref Range: 0-2 %) NRBC Pct Auto 0.0 (Ref Range: 0.0-0.2 /100WBC) 0.0 (Ref Range: 0.0-0.2 /100WBC) 0.0 (Ref Range: 0.0-0.2 /100WBC) Neutrophils Absolute Auto 3.2 (Ref Range: 2.0-8.3 x10*3/uL) 3.5 (Ref Range: 2.0-8.3 x10*3/uL) 3.8 (Ref Range: 2.0-8.3 x10*3/uL) Imm Gran Abs Auto 0.04 H (Ref Range: 0.00-0.03 X10*3/uL) 0.04 H (Ref Range: 0.00-0.03 X10*3/uL) 0.03 (Ref Range: 0.00-0.03 X10*3/uL) Lymphocytes Absolute Auto 3.0 (Ref Range: 1.2-4.9 X10*3/uL) 2.5 (Ref Range: 1.2-4.9 X10*3/uL) 2.1 (Ref Range: 1.2-4.9 X10*3/uL) Monocytes Absolute Auto 0.7 (Ref Range: 0.1-1.2 X10*3/uL) 0.7 (Ref Range: 0.1-1.2 X10*3/uL) 0.6 (Ref Range: 0.1-1.2 X10*3/uL) Eosinophils Absolute Auto 0.4 (Ref Range: 0.0-0.4 X10*3/uL) 0.4 (Ref Range: 0.0-0.4 X10*3/uL) 0.3 (Ref Range: 0.0-0.4 X10*3/uL) Basophils Absolute Auto 0.1 (Ref Range: 0.0-0.2 X10*3/uL) 0.1 (Ref Range: 0.0-0.2 X10*3/uL) 0.1 (Ref Range: 0.0-0.2 X10*3/uL) NRBC Abs Auto 0.000 (Ref Range: 0.0-0.012 X10*3/uL) 0.000 (Ref Range: 0.0-0.012 X10*3/uL) 0.000 (Ref Range: 0.0-0.012 X10*3/uL) * Lab:Thyroid Stimulating Horm one * Order Date 08/06/2023 03/30/2023 08/29/2022 Thyroid Stimulating Hormone 2.83 (Ref Range: 0.32-4.0 uIU/mL) 1.82 (Ref Range: 0.32-4.0 uIU/mL) 2.26 (Ref Range: 0.32-4.0 uIU/mL) * Examination: G eneral Examination: GENERAL APPEARANCE: p leasant, well nourished, well developed, in no acute distress, calm and relaxed , obese , woman. HEAD: a traumatic, normocephalic. EYES: e cedrick, perrla, anicteric, conjugate. EARS: n ormal. NOSE: s eptum intact. ORAL CAVITY: n ormal, unremarkable. NECK/THYROID: n o jugular venous distention, no carotid bruit, thyroid normal, Mild pain to range of motion but no numbness. LYMPH NODES: n o enlarged lymph nodes,spleen normal. SKIN: n o suspicious lesions, anicteric. HEART: n o clicks, gallops, murmurs, or rubs, regular rhythm, S1, S2 normal, no s3, or vascular bruits. LUNGS: c lear to auscultation . BREASTS: b ilateral mastectomy. ABDOMEN: b owel sounds normal, no ascites, no organomegaly, no mass , centripital obesity. RECTAL EXAM: n ot examined. MUSCULOSKELETAL: e xtremities unremarkable, no clubbing, cyanosis or edema. PERIPHERAL PULSES: n ormal. NEUROLOGIC: a lert and oriented, cranial nerves 2-12 grossly intact, deep tendon reflexes 2+ symmetrical, motor strength normal upper and lower extremities, sensory exam intact. PSYCH: a lert, oriented. Assessment: * Assessment: 1. O besity (BMI 35.0-39.9 without comorbidity) - E66.01, She has gained 3 pounds since her last visit We have discussed diet and nutrition today. We made a plan to lose weight at a rate of one half of a pound per week through regular physical activity on a diet restricted in fat calories and sodium. She will come to the office in the near future to be weighed. 2 . E ssential hypertension - I10, Her blood pressure is controlled on her current regimen of lisinopril and valsartan, which was continued without change today. 3 . F ormer smoker - Z87.891, She is highly motivated not to smoke further. She has a plan to prrevent relapse and times of stress and illness. 4 .?History of cancer of left breast - Z85.3, There is no sign of recurrent cancer at this time. She reports a sister with breast cancer. She was offered genetic testing and will consider it. No decision was made today. 5 . H earing loss in right ear - H91.91, Her hearing loss is stable and well compensated. She is mild hearing loss in the left ear as well. 6 . B arretts esophagus - K22.70, She is up-to-date with endoscopy. We reviewed the necessity for this and the importance of continued surveillance. 7 . G ERD (gastroesophageal reflux disease) - K21.9, She has occasional heartburn which is well controlled with kkgy-jip-xapvmlb medications. She sees the ladies' locker room attendant regularly for her Perez's esophagus. Current therapy was continued. 8 . H yperlipidemia type II - E78.0, The control of her lipids scrivener failures are stable. No change in her regimen was needed. Plan: * Treatment: 2. O thers Continue Atorvastatin Calcium Tablet, 20 MG, TAKE 1 TABLET BY MOUTH EVERY DAY; C ontinue Levothyroxine Sodium Tablet, 50 MCG, TAKE 1 TABLET BY MOUTH EVERY OTHER DAY; C ontinue Valsartan Tablet, 80 MG, 1 tablet, Orally, Once a day; C ontinue Omeprazole Capsule Delayed Release, 40 MG, TAKE 1 CAPSULE BY MOUTH EVERY DAY. * Procedure Codes: * Preventive Medicine: Counseling: C are goal follow-up plan: Counseling for abnormal BMI given Y es Above Normal BMI Follow-up D ietary management education, guidance, and counseling, Dietary needs education, Exercise promotion: strength training, Exercise promotion: stretching, Feeding regime, Giving encouragement to exercise, Lifestyle education regarding diet, Nutrition / feeding management, Nutrition therapy, Prescribed activity/exercise education, Prescribed diet education, Prescribed dietary intake, Special diet education, Weight monitoring , Intervention, Order not done: Medical or Other reason not done S moking/Tobacco Use Patient counseled on the dangers of tobacco use and urged to quit. 0 08/17/2023 * Follow Up: 2 Months (Reason: ov) * Images: * Sign off status: Completed true * Provider: Edd Vela MD Date: 0 08/17/2023 Generated for Jess carbajal/Darinel/[place] on: 06:07 AM EDT History and Physical Notes * HPI (History of Present Illness) Category Sub-Category Detail Notes COVID-19 Screening Questions Have you had any new onset fever, chills, cough, congestion, sore throat, shortness of breath, muscle aches?: No Have you been exposed to the virus withi n the last 10 days?: No Have you travelled internationally in last 10 days?: No Have you been exposed to COVID-19 in the past?: No Examination Category Sub-Category Detail Notes General Examination GENERAL APPEARANCE: pleasant , well nourished, well developed, in no acute distress, calm and relaxed , obese , woman HEAD: atraumatic, normocep halic EYES: eomi, perrla, anicte domingo, conjugate EARS: normal NOSE: septum intact NECK/THYROID: no jugular venous di stention, no carotid bruit, thyroid normal, Mild pain to range of motion but no numbness HEART: no clicks, gallops, murmurs, or rubs, regular rhythm, S1, S2 normal, no s3, or vascular bruits LUNGS: clear to auscultatio n ABDOMEN: bowel sounds normal, no ascites, no organomegaly, no mass , centripital obesity NEUROLOGIC: alert and oriented, cranial nerves 2-12 grossly intact, deep tendon reflexes 2+ symmetrical, motor strength normal upper and lower extremities, sensory exam intact SKIN: no suspicious lesion s, anicteric PERIPHERAL PULSES: normal BREASTS: bilateral mastectomy MUSCULOSKELETAL: extremities unremark able, no clubbing, cyanosis or edema LYMPH NODES: no enlarged lymph no dieudonne,spleen normal RECTAL EXAM: not examined PSYCH: alert, oriented ORAL CAVITY: normal, unremarkable
--- OUTSIDE RECORDS SUMMARY | 2023-10-20 06:30 | XMS_ITS ---
Author Organization Paul Vela III, MD Address [address] [address] Care Team Providers Care Windows Deployment Technician Name Role Phone Dr. Paul Vela III Primary Care Provider Allergies Allergen (clinical drug ingredient) Drug/Non Drug Allergy documented on EMR Reaction Allergy Type Onset Date Status Bee Sting Unknown Allergy Active Seasonale Unknown Drug Allergy Active Reason For Referral Reason left sided numbness evaluate and treat Diagnosis 1 Essential hypertensi on (I10) Diagnosis 2 Left sided numbness (R20.0) Referral Organization Paul Vela III, MD Referring Provider First Name Paul Referring Provider Last Name Dane Referring Provider Speciality Internal M edicine Referred Provider [facility], Neurology Referred Provider Specialty Neurology General Notes SAngella [employer] 12/22 10:39:45 AM > Per Dr Vela cancelled this referral pt will be sent to Dr Lewis for eval of worsening of neuropathy Referral Priority Routine REASON FOR VISIT Numbness left arm and foot, Esophageal reflux, Hearing loss right ear, Obesity, Hypothyroidism, Perez's esophagus, Osteopenia, Adult onset diabetes, Hyperlipidemia, Hypertension, Bilateral mastectomies Medications Medication SIG (Take, Route, Frequency, Duration) Notes Start Date End Date Status Atorvastatin Calcium 20 MG TAKE 1 TABLET BY MOUTH EVERY DAY Active Hydrocortisone (Perianal) 1 % 1 application Externally Twice a day 05/05/2022 Active Econazole Nitrate 1 % 1 application Exte rnally Once a day 10/01/2020 Active Tylenol PM Extra Strength 500-25 MG 1 tablet at bedtime as needed Orally Once a day Active Omeprazole 40 MG TAKE 1 CAPSULE BY MO HIH EVERY DAY Active Levothyroxine Sodium 50 MCG TAKE 1 TABLE T BY MOUTH EVERY OTHER DAY Active Aspir-Low 81 MG 1 tablet Orally Once a day Active Valsartan 80 MG 1 tablet Orally Once a day 01/23/2023 Active Social History Tobacco Use: Social History [...] Non-User Ex-cigaret te smoker Vital Signs Temperature 97.1 degrees Fahrenheit 10/20/19 24 Blood pressure systolic 139 mm Hg 10/20/19 24 Blood pressure diastolic 78 mm Hg 024 Heart Rate 74 /min 10/20/2023 Height 62 in 10/20/2023 Weight 196 lbs 10/20/2023 BMI 35.84 kg/m2 10/20/2023 ( Encounters Encounter Location Date Provider Diagnosis Paul Vela III, MD [address] [place] [address] [place] [address] 10/20/2023 Paul Vela Essential hypertensi on I10 ; GERD (gastroesophageal reflux disease) K21.9 ; Obesity (BMI 35.0-39.9 without comorbidity) E66.01 ; Hypothyroidism E03.9 ; Hearing loss in right ear H91.91 ; History of cancer of left breast Z85.3 and Former smoker Z87.891 Assessments Encounter Date Diagnosis (ICD Code) Assessment Notes Treat ment Notes Treatment Clinical Notes 10/20/2023 Essential hypertension (ICD-10 - I10) Her blood pressure is controlled on her current regimen of lisinopril and valsartan, which was continued without change today. 10/20/2023 GERD (gastroesophageal reflux disease) (ICD-10 - K21.9) Her reflux is well controlled with medications. 10/20/2023 Obesity (BMI 35.0-39.9 without comorbidity) (ICD-10 - E66.01) Her BMI is 35.8. We discussed diet and nutrition. We made a weight loss strategy to lose weight at a rate of one half of a pound per week. 10/20/2023 Hypothyroidism (ICD-10 - E03.9) Her thyroid function tests are in the normal range. She is euthyroid. She has been compliant with her medication. 10/20/2023 Hearing loss in righ t ear (ICD-10 - H91.91) Her hearing loss is stable and well compensated. She is mild hearing loss in the left ear as well. 10/20/2023 History of cancer of left breast (ICD-10 - Z85.3) There is no sign of recurrent cancer at this time. She reports a sister with breast cancer. She was offered genetic testing and will consider it. No decision was made today. 10/20/2023 Former smoker (ICD-1 0 - Z87.891) She is highly motivated not to smoke further. She has a plan to prrevent relapse and times of stress and illness. Plan Of Treatment Medication Medication Name Sig Start Date Stop Date Notes Atorvastatin Calcium 20 MG TAKE 1 TABLET BY MOUTH EVERY DAY Hydrocortisone (Perianal) 1 % 1 applicat ion Externally Twice a day 05/05/2022 Econazole Nitrate 1 % 1 application Exte rnally Once a day 10/01/2020 Tylenol PM Extra Strength 500-25 MG 1 tablet at bedtime as needed Orally Once a day Omeprazole 40 MG TAKE 1 CAPSULE BY MO UTH EVERY DAY Levothyroxine Sodium 50 MCG TAKE 1 TABLE T BY MOUTH EVERY OTHER DAY Aspir-Low 81 MG 1 tablet Orally Once a day Valsartan 80 MG 1 tablet Orally Once a day 01/23/2023 Pending Test Test Name Order Date PROFILE, FASTING (COMPREHENSIVE METABOLI C) 10/20/2023 LIPID PANEL 10/20/2023 TSH (THYROID STIMULATING HORMONE) 2023 CBC w DIFF 10/20/2023 Free T4 (Free Thyroxine) 10/20/2023 Referrals Referral Date Details 10/20/2023 10/20/2023, left douglas ed numbness evaluate and treat, Neurology [facility] Next Appt Details Follow Up: 3 Months, Reason: ov review labs Provider Name:Paul Vela , 12/27/2024 09:30:00 AM, [address] [place] [address] [address] [place], AM[place] CROW, [id number], Progress Notes * Amirah KEATINGOB:[birth year] (73 yo F)Acc No.[id number]:10/20/2023 Progress Notes Patient: Khalida Yo Provider: Edd Vela MD :1950 A ge:73 Y S ex:Female Date:10/20/2023 Address:[address] [place] [address] BY, [id number] Subjective: * Chief Complaints: * N umbness left arm and footEsophageal refluxHearing loss right earObesityHypothyroidismBarrett's esophagusOsteopeniaAdult onset diabetesHyperlipidemiaHypertensionBilateral mastectomies * HPI: C OVID-19 Screening: Questions H ave you experienced fever, chills, cough, sore throat, shortness of breath, difficulty breathing, muscle aches, loss of taste or smell? N o H ave you been exposed to the virus within the last 10 days? N o H ave you travelled internationally in the last 10 days? N o H ave you been exposed to COVID-19 in the past? N o She returns for medical management. Her chief complaint was continued numbness in the left foot and arm. Her reflexes were equal today. The blood supply was adequate. There were no abnormal neurological findings. The bilateral mastectomy sites were free of disease recurrence. Her glucose levels have been under 150. She is compliant with all of her medication. Her blood pressure was stable.Her blood work was reviewed with her. * ROS: G eneral/Constitutional: pain o nly normal aches and pains. C hills d enies.?Fatigue a dmits. F ever d enies. E NT: Decreased hearing m ild. R espiratory: Cough d enies. C ardiovascular: [...] 1997excision and revision of scars left leg 1988Le breast mastectomy @ [facility] [place] -Dr. Austni 03/10/1999Rig breast mastectomy @ [facility] [place] -Dr. Austin 08/13/1999Stage 2 reconstruction of left breast; saline implant 10/18/1999Stage 2 reconstruction of right breast; saline implant 04/03/2000Colonoscopy 12/15/2003Colonoscopy; EGD with biopsy 05/09/2009EGD with biopsy 11/29/2009EGD with biopsy 01/12/2013colonoscopy, Dr. Coy, onetubular adenoma 2015biopsy on head 08/2019Colonoscopy 11/2019le eye lazer treatment 06/2020 * Hospitalization/Major Diagno stic Procedure: D enies Past Hospitalization * Family History: F ather: [...] x-cigarette smoker S he was born in [place]. She is single with no children. 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 * Medications: T akingAtorvastatin Calcium 20 MG Tablet TAKE 1 TABLET BY MOUTH EVERY DAY Levothyroxine Sodium 50 MCG Tablet TAKE 1 TABLET BY MOUTH EVERY OTHER DAY Valsartan 80 MG Tablet 1 tablet Orally Once a dayAspir-Low 81 MG Tablet Delayed Release 1 tablet Orally Once a dayEconazole Nitrate 1 % Cream 1 application Externally Once a dayHydrocortisone (Perianal) 1 % Cream 1 application Externally Twice a dayOmeprazole 40 MG Capsule Delayed Release TAKE 1 CAPSULE BY MOUTH EVERY DAY Tylenol PM Extra Strength 500- 25 MG Tablet 1 tablet at bedtime as needed Orally Once a dayMedication List reviewed and reconciled with the patientTaking Atorvastatin Calcium 20 MG Tablet TAKE 1 TABLET BY MOUTH EVERY DAY Taking Levothyroxine Sodium 50 MCG Tablet TAKE 1 TABLET BY MOUTH EVERY OTHER DAY Taking Valsartan 80 MG Tablet 1 tablet Orally Once a dayTaking Aspir-Low 81 MG Tablet Delayed Release 1 tablet Orally Once a dayTaking Econazole Nitrate 1 % Cream 1 application Externally Once a dayTaking Hydrocortisone (Perianal) 1 % Cream 1 application Externally Twice a dayTaking Omeprazole 40 MG Capsule Delayed Release TAKE 1 CAPSULE BY MOUTH EVERY DAY Taking Tylenol PM Extra Strength 500- 25 MG Tablet 1 tablet at bedtime as needed Orally Once a dayMedication List reviewed and reconciled with the patient * Allergies: B ee StingSevíctoraleno[Allergies Verified] Objective: * Vitals: H t: 62, Wt:196, BMI:35.84, BP:139/78, HR:74, Temp:97.1, Ht-cm: 157.48, Wt-k.9 (. * P ast Orders: Lab:Lipid Panel * Order Date 08/06/2023 03/24/2023 [...] uIU/mL) 2.26 (Ref Range: 0.32-4.0 uIU/mL) * Lab:Free T4 (Free Thyroxine) * Order Date 08/06/2023 03/24/2023 08/29/2022 Free T4 (Free Thyroxine) 0.88 (Ref Range: 0.71-1.85 ng/dL) 0.87 (Ref Range: 0.71-1.85 ng/dL) 0.96 (Ref Range: 0.71-1.85 ng/dL) * Examination: G eneral Examination: GENERAL APPEARANCE: p leasant, well nourished, well developed, in no acute distress, calm and relaxed , obese , woman. HEAD: a traumatic, normocephalic. EYES: e cedrick, perrla, anicteric, conjugate. EARS: n ormal. NOSE: s eptum intact. ORAL CAVITY: n ormal, unremarkable. NECK/THYROID: n o jugular venous distention, no carotid bruit, thyroid normal. LYMPH NODES: n o enlarged lymph nodes,spleen normal. SKIN: n o suspicious lesions, anicteric. HEART: n o clicks, gallops, murmurs, or rubs, regular rhythm, S1, S2 normal, no s3, or vascular bruits. LUNGS: c lear to auscultation . BREASTS: B ilateral mastectomy sites free of disease. ABDOMEN: b owel sounds normal, no ascites, no organomegaly, no mass , centripital obesity. RECTAL EXAM: n ot examined. MUSCULOSKELETAL: e xtremities unremarkable, no clubbing, cyanosis or edema. PERIPHERAL PULSES: n ormal. NEUROLOGIC: a lert and oriented, cranial nerves 2-12 grossly intact, deep tendon reflexes 2+ symmetrical, motor strength normal upper and lower extremities, sensory exam intact, No cause for numbness detected. PSYCH: a lert, oriented. Assessment: * Assessment: 1. E ssential hypertension - I10 (Primary), Her blood pressure is controlled on her current regimen of lisinopril and valsartan, which was continued without change today. 2 . G ERD (gastroesophageal reflux disease) - K21.9, Her reflux is well controlled with medications. 3 . O besity (BMI 35.0-39.9 without comorbidity) - E66.01, Her BMI is 35.8. We discussed diet and nutrition. We made a weight loss strategy to lose weight at a rate of one half of a pound per week. 4 .?Hypothyroidism - E03.9, Her thyroid function tests are in the normal range. She is euthyroid. She has been compliant with her medication. 5 . H earing loss in right ear - H91.91, Her hearing loss is stable and well compensated. She is mild hearing loss in the left ear as well. 6 . History of cancer of left breast - Z85.3, There is no sign of recurrent cancer at this time. She reports a sister with breast cancer. She was offered genetic testing and will consider it. No decision was made today. 7 . F ormer smoker - Z87.891, She is highly motivated not to smoke further. She has a plan to prrevent relapse and times of stress and illness. Plan: * Treatment: 2. G ERD (gastroesophageal reflux disease) L AB: PROFILE, FASTING (COMPREHENSIVE METABOLIC) L AB: LIPID PANEL L AB: TSH (THYROID STIMULATING HORMONE) L AB: CBC w DIFF L AB: Free T4 (Free Thyroxine) 3. O besity (BMI 35.0-39.9 without comorbidity) L AB: PROFILE, FASTING (COMPREHENSIVE METABOLIC) L AB: LIPID PANEL L AB: TSH (THYROID STIMULATING HORMONE) L AB: CBC w DIFF L AB: Free T4 (Free Thyroxine) 4. H ypothyroidism L AB: PROFILE, FASTING (COMPREHENSIVE METABOLIC) L AB: LIPID PANEL L AB: TSH (THYROID STIMULATING HORMONE) L AB: CBC w DIFF L AB: Free T4 (Free Thyroxine) 5. O thers Continue Atorvastatin Calcium Tablet, 20 MG, TAKE 1 TABLET BY MOUTH EVERY DAY; C ontinue Levothyroxine Sodium Tablet, 50 MCG, TAKE 1 TABLET BY MOUTH EVERY OTHER DAY; C ontinue Valsartan Tablet, 80 MG, 1 tablet, Orally, Once a day; C ontinue Omeprazole Capsule Delayed Release, 40 MG, TAKE 1 CAPSULE BY MOUTH EVERY DAY. Referral To:Neurology [facility] Neurology Reason:left sided numbness evaluate and treat * Procedure Codes: * Preventive Medicine: Counseling: [...] tobacco use and urged to quit. 0 10/21/2023 * Follow Up: 3 Months (Reason: ov review labs) * Images: * Sign off status: Completed true * Provider: Edd Vela MD Date: 0 10/20/2023 Generated for Jess carbajal/Darinel/eTransmitting on: 1 06:06 AM EDT History and Physical Notes * HPI (History of Present Illness) Category Sub-Category Detail Notes COVID-19 Screening Questions Have you had any new onset fever, chills, cough, congestion, sore throat, shortness of breath, muscle aches?: No Have you been exposed to the virus withi n the last 10 days?: No Have you travelled internationally in [facility] last 10 days?: No Have you been [...] venous di stention, no carotid bruit, thyroid normal HEART: no clicks, gallops, murmurs, or rubs, regular rhythm, S1, S2 normal, no s3, or vascular bruits LUNGS: clear to auscultatio n ABDOMEN: bowel sounds normal, no ascites, no organomegaly, no mass , centripital obesity NEUROLOGIC: alert and oriented, cranial nerves 2-12 grossly intact, deep tendon reflexes 2+ symmetrical, motor strength normal upper and lower extremities, sensory exam intact, No cause for numbness detected SKIN: no suspicious lesion s, anicteric PERIPHERAL PULSES: normal BREASTS: Bilateral mastectomy sites free of disease MUSCULOSKELETAL: extremities unremark able, no clubbing, cyanosis or edema LYMPH NODES: no enlarged lymph no dieudonne,spleen normal RECTAL EXAM: not examined PSYCH: alert, oriented ORAL CAVITY: normal, unremarkable Consultation Request Notes Referral Date Referring Provider Referred Provider Not deni 10/20/2023 Paul Vela [facility], Neurology left si ded numbness evaluate and treat
--- OUTSIDE RECORDS SUMMARY | 2023-12-23 06:00 | XMS_ITS ---
Author Organization Paul Vela III, MD Address [address] [place] [address] [place] [address] Care Team Providers Care Box Sealing Inspector Name Role Phone Dr. Paul Vela III Primary Care Provider Allergies Allergen (clinical drug ingredient) Drug/Non Drug Allergy documented on EMR Reaction Allergy Type Onset Date Status Bee Sting Unknown Allergy Active Seasonale Unknown Drug Allergy Active Results Component Value Reference Range Notes URINE DIP STICK Reviewed date:12/23/2023 10:53:16 AM Interpretation: Performing Lab: Notes/Report: SG 1.010 1.005 - 1.025 pH 5.0 5.0 - 9.0 SID 70 Negative - NIT negative Negative - PRO 15 Negative - Trace GLU Negative Negative - KET Negative Negative - UBG 0.2 0.1 - 1.8 ANDRES Negative 0.2 - 1.3 BLD Negative Negative - Reason For Referral Reason Consult and Treat Worsening Neuropathy Questioning worsening due to diabetes Diagnosis 1 Neuropathy (G62.9) Referral Organization Paul Vela III, MD Referring Provider First Name Paul Referring Provider Last Name Dane Referring Provider Speciality Internal M edicine Referred Provider Zayda Lewis Referred Provider Specialty Neurology General Notes Tonie Tracey 12/29/2023 11:29:46 AM > Patient is schedule to see Dr. Lewis. Letter mailed to patient Referral Priority Routine Referral Appointment Date 03/02/2024 REASON FOR VISIT Annual Exam Medications Medication SIG (Take, Route, Frequency, Duration) Notes Start Date End Date Status Ozempic (0.25 or 0.5 MG/DOSE) 2 MG/3ML 0.25 mg Subcutaneous weekly for 28 days 12/23/2023 11/23/2024 Active glipiZIDE 5 MG 1 tablet 30 minutes before breakfast Orally Once a day for 30 days 12/23/2023 Active Tylenol PM Extra Strength 500-25 MG 1 tablet at bedtime as needed Orally Once a day Active Hydrocortisone (Perianal) 1 % 1 application Externally Twice a day 05/05/2022 Active Econazole Nitrate 1 % 1 application Exte rnally Once a day 10/01/2020 Active Levothyroxine Sodium 50 MCG TAKE 1 TABLET BY MOUTH EVERY OTHER DAY Active Atorvastatin Calcium 20 MG TAKE 1 TABLET BY MOUTH EVERY DAY Active Valsartan 80 MG 1 tablet Orally Once a day 01/23/2023 Active Aspir-Low 81 MG 1 tablet Orally Once a day Active Omeprazole 40 MG TAKE 1 CAPSULE BY MO UTH EVERY DAY Active Immunizations Vaccine Route Administration Date Status Comme nts Influenza Vaccine Afluria IM Intramuscular 12/23/2023 Admi nistered Social History Tobacco Use: Social History Observation Description Date Details (start date - stop date) Former Smoker NA - NA Sex Assigned At : Social History Observation Description Sex Assigned At Female Tobacco Use/Smoking Question Answer Notes Patient is a former smoker How long has it been since you last smoked? > 10 years Additional Findings: Tobacco Non-User Ex-cigaret te smoker Tobacco Control (Standard) Question Answer Notes Tobacco use: Former smoker How long has it been since you last smoked? Grea ter than 10 years Additional Findings: Tobacco non-user Ex-cigaret te smoker AUDIT-C (Standard) Question Answer Notes Did you have a drink containing alcohol in the p ast year? No Points 0 Interpretation Negative Vital Signs Temperature 98.1 degrees Fahrenheit 12/23/19 24 Blood pressure systolic 124 mm Hg 12/23/19 24 Blood pressure diastolic 84 mm Hg 024 Heart Rate 72 /min 12/23/2023 Height 62 in 12/23/2023 Weight 191 lbs 12/23/2023 BMI 34.93 kg/m2 12/23/2023 Encounters Encounter Location Date Provider Diagnosis Paul Vela III, MD [address] [place] [address] [address] [place], [place] [address] 12/23/2023 Paul Vela Essential hypertensi on I10 ; Type 2 diabetes mellitus without complication, without long-term current use of insulin E11.9 ; Hyperlipidemia type II E78.01 ; Encounter for immunization Z23 ; Former smoker Z87.891 ; Obesity (BMI 35.0-39.9 without comorbidity) E66.01 ; Hearing loss in right ear H91.91 ; Barretts esophagus K22.70 and History of cancer of left breast Z85.3 Assessments Encounter Date Diagnosis (ICD Code) Assessment Notes Treat ment Notes Treatment Clinical Notes 12/23/2023 Essential hypertension (ICD-10 - I10) Her blood pressure is controlled on her current regimen of lisinopril and valsartan, which was continued without change today. 12/23/2023 Type 2 diabetes mellitus without complication, without long-term current use of insulin (ICD-10 - E11.9) Her fasting glucose was 126. I have ordered a hemoglobin A1c and microalbumin to be done prior to the next visit. No change in her therapy was made. 12/23/2023 Hyperlipidemia type II (ICD-10 - E78.01) Her lipids are controlled at this time. Current therapy was continued without change. 12/23/2023 Encounter for immunization (ICD-10 - Z23) In today without complication. 12/23/2023 Former smoker (ICD-1 0 - Z87.891) She is highly motivated not to smoke further. She has a plan to prrevent relapse and times of stress and illness. 12/23/2023 Obesity (BMI 35.0-39.9 without comorbidity) (ICD-10 - E66.01) Her BMI is 34.9. We discussed diet and nutrition. We made a weight loss strategy to lose weight at a rate of one half of a pound per week. 12/23/2023 Hearing loss in righ t ear (ICD-10 - H91.91) Her hearing loss is stable and well compensated. She is mild hearing loss in the left ear as well. 12/23/2023 Barretts esophagus (ICD-10 - K22.70) She is up-to-date with endoscopy. We reviewed the necessity for this and the importance of continued surveillance. 12/23/2023 History of cancer of left breast (ICD-10 - Z85.3) There is no sign of recurrent cancer at this time. She reports a sister with breast cancer. She was offered genetic testing and will consider it. No decision was made today. Plan Of Treatment Medication Medication Name Sig Start Date Stop Date Notes Ozempic (0.25 or 0.5 MG/DOSE ) 2 MG/3ML 0.25 mg Subcutaneous weekly for 28 days 12/23/2023 11/23/2024 glipiZIDE 5 MG 1 tablet 30 minutes before breakfast Orally Once a day for 30 days 12/23/2023 Tylenol PM Extra Strength 500-25 MG 1 tablet at bedtime as needed Orally Once a day Hydrocortisone (Perianal) 1 % 1 applicat ion Externally Twice a day 05/05/2022 Econazole Nitrate 1 % 1 application Exte rnally Once a day 10/01/2020 Levothyroxine Sodium 50 MCG TAKE 1 TABLE T BY MOUTH EVERY OTHER DAY Atorvastatin Calcium 20 MG TAKE 1 TABLET BY MOUTH EVERY DAY Valsartan 80 MG 1 tablet Orally Once a day 01/23/2023 Aspir-Low 81 MG 1 tablet Orally Once a day Omeprazole 40 MG TAKE [address] [facility] EVERY DAY Pending Test Test Name Order Date PROFILE, FASTING (COMPREHENSIVE METABOLI C) 12/23/2023 CBC WITH AUTO DIFF 12/23/2023 Microalbumin, Random 12/23/2023 Hemoglobin A1c 12/23/2023 Referrals Referral Date Details 12/23/2023 12/23/2023, Consult and Treat Worsening Neuropathy Questioning worsening due to diabetes, Zayda Lewis Next Appt Details Follow Up: 4 Weeks, Reason: OV Provider Name:Paul Vela , 12/27/2024 09:30:00 AM, [address] [place] [address] , [place] [address], [place], [address], Progress Notes * Amirah KEATINGOB:[birth year] (73 yo F)Acc No.[id number]:12/23/2023 Progress Notes Patient: Kyung Khalida RIVERA Provider: Edd Vela MD :1950 A ge:73 Y S ex:Female Date:12/23/2023 Address:[address] [place] [address], [id number] Subjective: * Chief Complaints: * A nnual Exam * HPI: D epression Screening: PHQ-9 L ittle interest or pleasure in doing things?Not at all F eeling down, depressed, or hopeless S everal days T rouble falling or staying asleep, or sleeping too much S everal days F eeling tired or having little energy M ore than half the days P oor appetite or overeating S everal days F eeling bad about yourself or that you are a failure, or have let yourself or your family down N ot at all T rouble concentrating on things, such as reading the newspaper or watching television N ot at all M oving or speaking so slowly that other people could have noticed; or the opposite, being so fidgety or restless that you have been moving around a lot more than usual N ot at all T houghts that you would be better off or of hurting yourself in some way N ot at all T otal Score 5 I nterpretation M ild Depression C OVID-19 Screening: Questions H ave you [...] to COVID-19 in the past? N o F all Risk Screening: Fall History H ave you had any falls with injury in the past year? N o H ave you had two or more falls in the past year? N o F all Risk Assessment: * : The patient, a 73-year-old female, presented with a chief complaint of numbness in her left arm and foot, which has been worsening over time. She also reported experiencing numbness in her thumbs and two fingers, more so on the left side but also on the right. The patient mentioned that she has not been able to walk due to a sprained ankle. She also reported frequent urination, especially at night, and increased thirst, which she has been trying to manage by drinking a lot of water. The patient has been trying to manage her symptoms through diet and weight loss, but she admitted that she has not been very successful. She reported a weight loss of 5 lbs since September and 6 lbs since July. The patient also reported that she has been feeling numb all over her body, including her feet. Blood Sugar Level is 126. * ROS: G eneral/Constitutional: pain N umbness all 4 extremities worsen hand. C hills?denies. F atigue a dmits. F ever d enies. A dmits W eight loss. ? E NT: Decreased hearing d enies. E ndocrine: Admits F requent urination. R espiratory: Cough d enies. C ardiovascular: Chest pain with exertion d enies. D yspnea on exertion?denies. S hortness of breath d enies. G astrointestinal: Constipation d enies. D ecreased appetite d enies.?Diarrhea d enies. H eartburn c ontrolled with medications. N ausea d enies.?Rectal bleeding d enies. V omiting d enies. [...] scars left leg [place] [facility] [place] [facility] [place] 08/13/1999Stage 2 reconstruction of left breast; saline implant 10/18/1999Stage 2 reconstruction of right breast; saline implant 04/03/2000Colonoscopy 12/15/2003Colonoscopy; EGD with biopsy 05/09/2009EGD with biopsy 11/29/2009EGD with biopsy 01/12/2013colonoscopy, Dr. Coy, onetubular adenoma 2014biopsy on head 08/2019Colonoscopy 11/2019[facility] eye lazer treatment 06/2020No history * Hospitalization/Major Diagno stic Procedure: N o history * Family History: F ather: 88 yrs, [...] dditional Findings: Tobacco Non-User E x-cigarette smoker Tobacco Control (Standard) T obacco use: F ormer smoker H ow long has it been since you last smoked??Greater than 10 years A dditional Findings: Tobacco non-user E x-cigarette smoker D rugs/Alcohol: D rugs H ave you used drugs other than those for medical reasons in the past 12 months? N o D rug/Alcohol: A CARLOS-C (Standard) D id you have a drink containing alcohol in the past year? N o P oints 0 I nterpretation N egative S he was born in [place]. She is single with no children. She works at the [employer]. * Medications: T akingAtorvastatin Calcium 20 MG Tablet TAKE 1 TABLET BY MOUTH EVERY DAY Levothyroxine Sodium 50 MCG Tablet TAKE 1 TABLET BY MOUTH EVERY OTHER DAY Valsartan 80 MG Tablet 1 tablet Orally Once a day Aspir-Low 81 MG Tablet Delayed Release 1 tablet Orally Once a day Econazole Nitrate 1 % Cream 1 application Externally Once a day Hydrocortisone (Perianal) 1 % Cream 1 application Externally Twice a day Tylenol PM Extra Strength 500-25 MG Tablet 1 tablet at bedtime as needed Orally Once a day Omeprazole 40 MG Capsule Delayed Release TAKE 1 CAPSULE BY MOUTH EVERY DAY Medication List reviewed and reconciled with the patientTaking Atorvastatin Calcium 20 MG Tablet TAKE 1 TABLET BY MOUTH EVERY DAY Taking Levothyroxine Sodium 50 MCG Tablet TAKE 1 TABLET BY MOUTH EVERY OTHER DAY Taking Valsartan 80 MG Tablet 1 tablet Orally Once a day Taking Aspir-Low 81 MG Tablet Delayed Release 1 tablet Orally Once a day Taking Econazole Nitrate 1 % Cream 1 application Externally Once a day Taking Hydrocortisone (Perianal) 1 % Cream 1 application Externally Twice a day Taking Tylenol PM Extra Strength 500-25 MG Tablet 1 tablet at bedtime as needed Orally Once a day Taking Omeprazole 40 MG Capsule Delayed Release TAKE 1 CAPSULE BY MOUTH EVERY DAY Medication List reviewed and reconciled with the patient * Allergies: Tricia Oconnell[Allergies Verified] Objective: * Vitals: H t: 62, Wt:191, BMI:34.93, BP:124/84, HR:72, Temp:98.1, Ht-cm: 157.48, Wt-k.64. * P ast Orders: Lab:Complete Blood Count Aut o Diff * Collection Date 12/14/2023 08/06/2023 03/30/2023 Collection Time 06:17 AM 06:13 AM 06:35 AM Order Date 12/14/2023 08/06/2023 03/30/2023 White Blood Count 5.7 (Ref Range: 4.8-10.8 X10*3/uL) 7.4 (Ref Range: 4.8-10.8 X10*3/uL) 7.2 (Ref Range: 4.8-10.8 X10*3/uL) Red Blood Count 4.27 (Ref Range: 4.20-5.50 X10*6/uL) 4.30 (Ref Range: 4.20-5.50 X10*6/uL) 4.36 (Ref Range: 4.20-5.50 X10*6/uL) Hemoglobin 13.5 (Ref Range: 12.0-16.0 g/dl) 13.5 (Ref Range: 12.0-16.0 g/dl) 13.9 (Ref Range: 12.0-16.0 g/dl) Hematocrit 40.4 (Ref Range: 37.0-47.0 %) 40.4 (Ref Range: 37.0-47.0 %) 40.5 (Ref Range: 37.0-47.0 %) Mean Corpuscular Volume 94.6 (Ref Range: 80.0-98.0 fL) 94.0 (Ref Range: 80.0-98.0 fL) 92.9 (Ref Range: 80.0-98.0 fL) Mean Corpuscular Hemoglobin 31.6 (Ref Range: 27.0-33.0 pg) 31.4 (Ref Range: 27.0-33.0 pg) 31.9 (Ref Range: 27.0-33.0 pg) Mean Corpuscular HGB Conc 33.4 (Ref Range: 31.0-35.0 g/dl) 33.4 (Ref Range: 31.0-35.0 g/dl) 34.3 (Ref Range: 31.0-35.0 g/dl) Red Cell Distribution Width 12.6 (Ref Range: 11.0-16.0 %) 12.4 (Ref Range: 11.0-16.0 %) 12.6 (Ref Range: 11.0-16.0 %) Platelet Count 371 (Ref Range: 160-400 X10*3/uL) 359 (Ref Range: 160-400 X10*3/uL) 372 (Ref Range: 160-400 X10*3/uL) Mean Platelet Volume 9.2 L (Ref Range: 9.4-12.3 fL) 9.1 L (Ref Range: 9.4-12.3 fL) 9.5 (Ref Range: 9.4-12.3 fL) Neutrophils Percent Auto 41.6 L (Ref Range: 45-73 %) 42.9 L (Ref Range: 45-73 %) 49.3 (Ref Range: 45-73 %) Imm Gran Pct Auto 0.4 (Ref Range: 0.0-0.4 %) 0.5 H (Ref Range: 0.0-0.4 %) 0.6 H (Ref Range: 0.0-0.4 %) Lymphocytes Percent Auto 41.1 H (Ref Range: 20-40 %) 40.5 H (Ref Range: 20-40 %) 34.3 (Ref Range: 20-40 %) Monocytes Percent Auto 9.0 (Ref Range: 2-11 %) 9.3 (Ref Range: 2-11 %) 9.5 (Ref Range: 2-11 %) Eosinophils Percent Auto 6.5 H (Ref Range: 0-4 %) 5.7 H (Ref Range: 0-4 %) 5.0 H (Ref Range: 0-4 %) Basophils Percent Auto 1.4 (Ref Range: 0-2 %) 1.1 (Ref Range: 0-2 %) 1.3 (Ref Range: 0-2 %) NRBC Pct Auto 0.0 (Ref Range: 0.0-0.2 /100WBC) 0.0 (Ref Range: 0.0-0.2 /100WBC) 0.0 (Ref Range: 0.0-0.2 /100WBC) Neutrophils Absolute Auto 2.4 (Ref Range: 2.0-8.3 x10*3/uL) 3.2 (Ref Range: 2.0-8.3 x10*3/uL) 3.5 (Ref Range: 2.0-8.3 x10*3/uL) Imm Gran Abs Auto 0.02 (Ref Range: 0.00-0.03 X10*3/uL) 0.04 H (Ref Range: 0.00-0.03 X10*3/uL) 0.04 H (Ref Range: 0.00-0.03 X10*3/uL) Lymphocytes Absolute Auto 2.3 (Ref Range: 1.2-4.9 X10*3/uL) 3.0 (Ref Range: 1.2-4.9 X10*3/uL) 2.5 (Ref Range: 1.2-4.9 X10*3/uL) Monocytes Absolute Auto 0.5 (Ref Range: 0.1-1.2 X10*3/uL) 0.7 (Ref Range: 0.1-1.2 X10*3/uL) 0.7 (Ref Range: 0.1-1.2 X10*3/uL) Eosinophils Absolute Auto 0.4 (Ref Range: 0.0-0.4 X10*3/uL) 0.4 (Ref Range: 0.0-0.4 X10*3/uL) 0.4 (Ref Range: 0.0-0.4 X10*3/uL) Basophils Absolute Auto 0.1 (Ref Range: 0.0-0.2 X10*3/uL) 0.1 (Ref Range: 0.0-0.2 X10*3/uL) 0.1 (Ref Range: 0.0-0.2 X10*3/uL) NRBC Abs Auto 0.000 (Ref Range: 0.0-0.012 X10*3/uL) 0.000 (Ref Range: 0.0-0.012 X10*3/uL) 0.000 (Ref Range: 0.0-0.012 X10*3/uL) * Lab:Thyroid Stimulating Horm one * Collection Date 12/14/2023 08/06/2023 03/30/2023 Collection Time 06:17 AM 06:13 AM 06:35 AM Order Date 12/14/2023 08/06/2023 03/30/2023 Thyroid Stimulating Hormone 1.31 (Ref Range: 0.32-4.0 uIU/mL) 2.83 (Ref Range: 0.32-4.0 uIU/mL) 1.82 (Ref Range: 0.32-4.0 uIU/mL) * Lab:Free T4 (Free Thyroxine) * Collection Date 12/14/2023 08/06/2023 03/30/2023 Collection Time 06:17 AM 06:13 AM 06:35 AM Order Date 12/14/2023 08/06/2023 03/24/2023 Free T4 (Free Thyroxine) 1.03 (Ref Range: 0.71-1.85 ng/dL) 0.88 (Ref Range: 0.71-1.85 ng/dL) 0.87 (Ref Range: 0.71-1.85 ng/dL) * Lab:Lipid Panel * Collection Date 12/14/2023 08/06/2023 03/30/2023 Collection Time 06:17 AM 06:13 AM 06:35 AM Order Date 12/14/2023 08/06/2023 03/24/2023 Triglycerides 144 (Ref Range: <150 mg/dL) 103 (Ref Range: <150 mg/dL) 82 (Ref Range: <150 mg/dL) Cholesterol 165 (Ref Range: <200 mg/dL) 160 (Ref Range: <200 mg/dL) 143 (Ref Range: <200 mg/dL) LDL Cholesterol Calculated 84 (Ref Range: <100 mg/dL) 91 (Ref Range: <100 mg/dL) 76 (Ref Range: <100 mg/dL) HDL Cholesterol 53 (Ref Range: >40 mg/dL) 49 (Ref Range: >40 mg/dL) 51 (Ref Range: >40 mg/dL) * Lab:Comprehensive [place]. Pane l Fast * Collection Date 12/14/2023 08/06/2023 03/30/2023 Collection Time 06:17 AM 06:13 AM 06:35 AM Order Date 12/14/2023 08/06/2023 03/30/2023 Sodium 137 (Ref Range: 135-145 mmol/L) 136 (Ref Range: 135-145 mmol/L) 138 (Ref Range: 135-145 mmol/L) Bilirubin Total 0.6 (Ref Range: 0.0-1.0 mg/dL) 0.5 (Ref Range: 0.0-1.0 mg/dL) 0.4 (Ref Range: 0.0-1.0 mg/dL) Aspartate Amino Transferase 40 H (Ref Range: 5-31 U/L) 27 (Ref Range: 5-31 U/L) 22 (Ref Range: 5-31 U/L) Alanine Aminotransferase 35 H (Ref Range: 0-31 U/L) 28 (Ref Range: 0-31 U/L) 27 (Ref Range: 0-31 U/L) Total Protein 7.1 (Ref Range: 6.5-8.0 g/dL) 7.0 (Ref Range: 6.5-8.0 g/dL) 7.0 (Ref Range: 6.5-8.0 g/dL) Albumin Level 4.6 (Ref Range: 3.5-5.0 g/dL) 4.3 (Ref Range: 3.5-5.0 g/dL) 4.3 (Ref Range: 3.5-5.0 g/dL) Alkaline Phosphatase 80 (Ref Range: 39-117 U/L) 93 (Ref Range: 39-117 U/L) 102 (Ref Range: 39-117 U/L) Potassium 5.1 (Ref Range: 3.3-5.1 mmol/L) 4.6 (Ref Range: 3.3-5.1 mmol/L) 5.0 (Ref Range: 3.3-5.1 mmol/L) Chloride 104 (Ref Range: 96-108 mmol/L) 102 (Ref Range: 96-108 mmol/L) 104 (Ref Range: 96-108 mmol/L) Carbon Dioxide 25 (Ref Range: 22-29 mmol/L) 25 (Ref Range: 22-29 mmol/L) 24 (Ref Range: 22-29 mmol/L) Anion Gap 13 (Ref Range: 12-20) 14 (Ref Range: 12-20) 15 (Ref Range: 12-20) Blood Urea Nitrogen 14 (Ref Range: 9-16 mg/dL) 15 (Ref Range: 9-16 mg/dL) 11 (Ref Range: 9-16 mg/dL) Creatinine 0.95 (Ref Range: 0.5-1.4 mg/dL) 0.91 (Ref Range: 0.5-1.4 mg/dL) 1.14 (Ref Range: 0.5-1.4 mg/dL) Estimated Glomerular Filt Rate 58 > 60 47 Glucose Fasting 126 H (Ref Range: 60-99 mg/dL) 135 H (Ref Range: 60-99 mg/dL) 138 H (Ref Range: 60-99 mg/dL) Calcium 10.1 (Ref Range: 8.4-10.2 mg/dL) 9.6 (Ref Range: 8.4-10.2 mg/dL) 9.8 (Ref Range: 8.4-10.2 mg/dL) * Examination: G eneral Examination: GENERAL APPEARANCE: p leasant, well nourished, well developed, in no acute distress, calm and relaxed, obese, woman. HEAD: a traumatic, normocephalic. EYES: e [...] LUNGS: c lear to auscultation . BREASTS: N ot examined. ABDOMEN: b owel sounds normal, no ascites, no organomegaly, no mass, centripital obesity. RECTAL EXAM: n ot examined. MUSCULOSKELETAL: e xtremities unremarkable, no clubbing, cyanosis or edema. PERIPHERAL PULSES: n ormal. NEUROLOGIC: a lert and oriented, cranial nerves 2-12 grossly intact, deep tendon reflexes 2+ symmetrical, motor strength normal upper and lower extremities, sensory exam intact. PSYCH: a lert, oriented. Assessment: * Assessment: 1. T ype 2 diabetes mellitus without complication, without long-term current use of insulin - E11.9 (Primary) N otes :Her fasting glucose was 126. I have ordered a hemoglobin A1c and microalbumin to be done prior to the next visit. No change in her therapy was made. 2 . E ssential hypertension - I10 N otes :Her blood pressure is controlled on her current regimen of lisinopril and valsartan, which was continued without change today. 3 . H yperlipidemia type II - E78.01 N otes :Her lipids are controlled at this time. Current therapy was continued without change. 4 . E ncounter for immunization - Z23 N otes :In today without complication. 5 . F ormer smoker - Z87.891 N otes :She is highly motivated not to smoke further. She has a plan to prrevent relapse and times of stress and illness. 6 . O besity (BMI 35.0-39.9 without comorbidity) - E66.01 N otes :Her BMI is 34.9. We discussed diet and nutrition. We made a weight loss strategy to lose weight at a rate of one half of a pound per week. 7 . H earing loss in right ear - H91.91 N otes :Her hearing loss is stable and well compensated. She is mild hearing loss in the left ear as well. 8 . B arretts esophagus - K22.70 N otes :She is up-to-date with endoscopy. We reviewed the necessity for this and the importance of continued surveillance. 9 . H istory of cancer of left breast - Z85.3 N otes :There is no sign of recurrent cancer at this time. She reports a sister with breast cancer. She was offered genetic testing and will consider it. No decision was made today. Plan: * Treatment: 2. E ssential hypertension Continue Aspir-Low Tablet Delayed Release, 81 MG, 1 tablet, Orally, Once a day; C ontinue Econazole Nitrate Cream, 1 %, 1 application, Externally, Once a day; C ontinue Hydrocortisone (Perianal) Cream, 1 %, 1 application, Externally, Twice a day; C ontinue Tylenol PM Extra Strength Tablet, 500-25 MG, 1 tablet at bedtime as needed, Orally, Once a day; S tart glipiZIDE Tablet, 5 MG, 1 tablet 30 minutes before breakfast, Orally, Once a day, 30 days, 30, Refills 11; S tart Ozempic (0.25 or 0.5 MG/DOSE) Solution Pen-injector, 2 MG/3ML, 0.25 mg, Subcutaneous, weekly, 28 days, 1 Applicator, Refills 11. L AB: PROFILE, FASTING (COMPREHENSIVE METABOLIC) L AB: CBC WITH AUTO DIFF L AB: Microalbumin, Random L AB: Hemoglobin A1c 3. H yperlipidemia type II L AB: PROFILE, FASTING (COMPREHENSIVE METABOLIC) L AB: CBC WITH AUTO DIFF L AB: Microalbumin, Random L AB: Hemoglobin A1c 4. O thers Continue Omeprazole Capsule Delayed Release, 40 MG, TAKE 1 CAPSULE BY MOUTH EVERY DAY; C ontinue Atorvastatin Calcium Tablet, 20 MG, TAKE 1 TABLET BY MOUTH EVERY DAY; C ontinue Levothyroxine Sodium Tablet, 50 MCG, TAKE 1 TABLET BY MOUTH EVERY OTHER DAY; C ontinue Valsartan Tablet, 80 MG, 1 tablet, Orally, Once a day. Referral To:[facility] Reason:Consult and Treat Worsening Neuropathy Questioning worsening due to diabetes * Immunizations: Influenza Vaccine Afluria : 0.5 mL (Dose No:1) (Route: Intramuscular) given by Curtis Resendez on Right Thigh (Encounter for immunization) ???Immunization record has been reviewed and updated. * Labs: * L ab: URINE DIP STICK (Collection Date & Time - 12/23/2023) Value Reference Range S G 1.010 1.005 - 1.025 * p H 5.0 5.0 - 9.0 * L EU 70 Negative - * N IT negative Negative - * P RO 15 Negative - Trace * G MARE Negative Negative - * K ET Negative Negative - * U BG 0.2 0.1 - 1.8 * B IL Negative 0.2 - 1.3 * B LD Negative Negative - * Procedure Codes: 8 1002 URINE-NO [id number] VAC NO PRSV 0.5 ML [id number] FLU VACC 4 JAIRO 3 YRS PLUS IM * Preventive Medicine: Counseling: C are goal [...] of tobacco use and urged to quit. 1 DM Care Plan: P atient Lifestyle Goals P atient wants to be able to manage diabetes without too much effort. T reatment Goals H bA1C < 7.0, Blood Sugars less than < 115. B arriers n o barriers. S elf-Managment Goals W ork on weight loss, with a goal of losing 1 lb per week. * Follow Up: 4 Weeks (Reason: OV) * Images: * Sign off status: Completed true * Provider: Edd Vela MD Date: Generated for Jess carbajal/Darinel/Kirstiesmitting on: 06:06 AM EDT History and Physical Notes * HPI (History of Present Illness) Category Sub-Category Detail Notes Depression Screening PHQ-9 Little inte rest or pleasure in doing things: Not at all Feeling down, depressed, or hopeless: Se veral days Trouble falling or staying asleep, or sl eeping too much: Several days Feeling tired or having little energy: M ore than half the days Poor appetite or overeating: Several day s Feeling bad about yourself o r that you are a failure, or have let yourself or your family down: Not at all Trouble concentrating on thi ngs, such as reading the newspaper or watching television: Not at all Moving or speaking so slowly that other people could have noticed; or the opposite, being so fidgety or restless that you have been moving around a lot more than usual: Not at all Thoughts that you would be b jamel off or of hurting yourself in some way: Not at all Total Score: 5 Interpretation: Mild Depression Fall Risk Screening Fall History Have you had any falls with injury in the past year?: No Have you had two or more falls in the year?: No Fall Risk Assessment:: COVID-19 Screening Questions Have you had any new onset fever, chills, cough, congestion, sore throat, shortness of breath, muscle aches?: No Have you been exposed to the virus with n the last 10 days?: No Have you travelled internationally in last 10 days?: No Have you been exposed to COVID-19 in the past?: No Examination Category Sub-Category Detail Notes General Examination GENERAL APPEARANCE: pleasant , well nourished, well developed, in no acute distress, calm and relaxed, obese, woman HEAD: atraumatic, normocep halic EYES: eomi, perrla, anicte domingo, conjugate EARS: normal NOSE: septum intact NECK/THYROID: no jugular venous di stention, no carotid bruit, thyroid normal HEART: no clicks, gallops, murmurs, or rubs, regular rhythm, S1, S2 normal, no s3, or vascular bruits LUNGS: clear to auscultatio n ABDOMEN: bowel sounds normal, no ascites, no organomegaly, no mass, centripital obesity NEUROLOGIC: alert and oriented, cranial nerves 2-12 grossly intact, deep tendon reflexes 2+ symmetrical, motor strength normal upper and lower extremities, sensory exam intact SKIN: no suspicious lesion s, anicteric PERIPHERAL PULSES: normal BREASTS: Not examined MUSCULOSKELETAL: extremities unremark able, no clubbing, cyanosis or edema LYMPH NODES: no enlarged lymph no dieudonne,spleen normal RECTAL EXAM: not examined PSYCH: alert, oriented ORAL CAVITY: normal, unremarkable Consultation Request Notes Referral Date Referring Provider Referred Provider Not 12/23/2023 Paul Vela Mohammed Consult and Treat Worsening Neuropathy Questioning worsening due to diabetes
--- OUTSIDE RECORDS SUMMARY | 2023-12-31 07:13 | XMS_ITS ---
Author Organization Paul Vela III, MD Address [address] [place] [address] [place] [address] Care Team Providers Care Lead Clinical Research Coordinator Name Role Phone Dr. Paul Vela III Primary Care Provider [phone] REASON FOR VISIT Message Social History Sex Assigned At : Social History Observation Description Sex Assigned At Female Encounters Encounter Location Date Provider Diagnosis Paul Vela III, MD [address] [place] [address] [address] [facility] [place] [address] 12/31/2023 Paul Vela Plan Of Treatment Next Appt Details Provider Name:Paul Vela , 12/27/2024 09:30:00 AM, [address] [place] [address] [place], [address], Progress Notes * Amirah KEATINGOB:[birth year] (73 yo F)Acc No.[id number]:12/31/2023 Patient: Kyung LOGANPalmer SANTIZOise :1950 A ge:73 Y S ex:Female Address:[address] [place] [address] [place], [address] * true * Date: Generated for Printi ng/Faxing/eTransmitting on: 06:05 AM EDT
--- OUTSIDE RECORDS SUMMARY | 2024-01-08 07:22 | XMS_ITS ---
Author Organization Paul Vela III, MD Address [address] [place] [address] [place] [address] Care Team Providers Care Clinical Research Assistant Name Role Phone Dr. Paul Vela III Primary Care Provider REASON FOR VISIT ? Rx Social History Sex Assigned At : Social History Observation Description Sex Assigned At Female Encounters Encounter Location Date Provider Diagnosis Paul Vela III, MD [address] [place] [address] [address] [facility] [place] [address] 01/08/2024 Paul Vela Plan Of Treatment Next Appt Details Provider Name:Paul Vela , 12/27/2024 09:30:00 AM, [address] [place] [address] [place], [address], Progress Notes * Amirah KEATINGOB:[birth year] (73 yo F)Acc No.[id number]:01/08/2024 Patient: Kyung LOGANPalmer SANTIZOise :1950 A ge:73 Y S ex:Female Address:[address] [place] [address] [place], [address] * true * Date: Generated for Printi ng/Faxing/eTransmitting on: 06:06 AM EDT
--- OUTSIDE RECORDS SUMMARY | 2024-01-11 11:05 | XMS_ITS ---
Author Organization Paul Vela III, MD Address [address] [place] [address] [place] [address] Care Team Providers Care Funding Coordinator Name Role Phone Dr. Paul Vela III Primary Care Provider [phone] REASON FOR VISIT Needs call back from Medications Medication SIG (Take, Route, Frequency, Duration) Notes Start Date End Date Status FreeStyle Lite w/Device to be use to check blood sugar daily for 30 days DX: E11.9 Diabetes 01/12/2024 Active Gauze Pads 2 X2 use to check blood sugar daily for 90 days DX: E11.9 Diabetes 01/12/2024 Active Alcohol Pads 70 % use to check blood sugar daily for 90 days DX: E11.9 Diabetes 01/12/2024 Active Lancets - use to check blood sugar daily for 90 days DX: E11.9 Diabetes 01/12/2024 Active FreeStyle Lite Test - use to check blood sugar daily In Vitro daily for 90 days DX: E11.9 Diabetes 01/12/2024 Active Social History Sex Assigned At : Social History Observation Description Sex Assigned At Female Encounters Encounter Location Date Provider Diagnosis Pual Vela III, MD [address] [place] [address] [place] [address] 01/11/2024 Paul Vela Type 2 diabetes mellitus without complication, without long-term current use of insulin E11.9 Assessments Encounter Date Diagnosis (ICD Code) Assessment Notes Treatment Notes Treatment Clinical Notes 01/11/2024 Type 2 diabetes mellitus without complication, without long-term current use of insulin (ICD-10 - E11.9) Plan Of Treatment Medication Medication Name Sig Start Date Stop Date Notes FreeStyle Lite w/Device to be use to kushal ck blood sugar daily for 30 days 01/12/2024 DX: E11.9 Diabetes Gauze Pads 2 X2 use to check blood sugar daily for 90 days 01/12/2024 DX: E11.9 Diabetes Alcohol Pads 70 % use to check blood sugar daily for 90 days 01/12/2024 DX: E11.9 Diabetes Lancets - use to check blood sugar daily for 90 days 01/12/2024 DX: E11.9 Diabetes FreeStyle Lite Test - use to check blood sugar daily In Vitro daily for 90 days 01/12/2024 DX: E11.9 Diabetes Next Appt Details Provider Name:Paul Knapp Dane , 12/27/2024 09:30:00 AM, [address] [place] [address] [facility] [place], [place], [address], Progress Notes * SUSANPalmerKarenOB:[birth year] (73 yo F)Acc No.[id number]:01/11/2024 Patient: Khalida PEOPLES :1950 A ge:73 Y S ex:Female Address:[address] [place] [address], [phone] * Refills Start FreeStyle Lite Kit, w/Device, 1 Kit, to be use to check blood sugar daily, 30 days, Refills=1 Start FreeStyle Lite Test Strip, -, In Vitro, 100 Strip, use to check blood sugar daily, daily, 90 days, Refills=3 Start Lancets Miscellaneous, -, 100 Lancet, use to check blood sugar daily, 90 days, Refills=3 Start Alcohol Pads Pad, 70 %, 100 Pad, use to check blood sugar daily, 90 days, Refills=3 Start Gauze Pads Pad, 2 X2 , 100 Pad, use to check blood sugar daily, 90 days, Refills=3 Subjective: * Chief Complaints: * N eeds call back from MD * Medical History: * Surgical History: * Hospitalization/Major Diagno stic Procedure: * Medications: Objective: * Vitals: * Physical Examination: Assessment: * Assessment: 1. T ype 2 diabetes mellitus without complication, without long-term current use of insulin - E11.9 (Primary) Plan: * Treatment: * Procedure Codes: * true * Date: Generated for Jess carbajal/Darinel/[place] on: 06:06 AM EDT
--- OUTSIDE RECORDS SUMMARY | 2024-01-25 05:30 | XMS_ITS ---
Author Organization Paul Vela III, MD Address [address] [place] [address] [place] [address] Care Team Providers Care Collection Specialist Name Role Phone Dr. Paul Vela III Primary Care Provider Allergies Allergen (clinical drug ingredient) Drug/Non Drug Allergy documented on EMR Reaction Allergy Type Onset Date Status Bee Sting Unknown Allergy Active Seasonale Unknown Drug Allergy Active Results Component Value Reference Range Notes RBS/Hemocue glucose Reviewed date:01/25/2024 09:47:08 AM Interpretation: Performing Lab: Notes/Report: RBS 71 Reason For Referral Reason right shoulder pain Diagnosis 1 Acute pain of right shoulder (M25.511) Referral Organization Paul Vela III, MD Referring Provider First Name Paul Referring Provider Last Name Dane Referring Provider Speciality Internal M edicine Referred Organization [facility] nter Referred Provider [facility] er, [facility] Referred Address [address] [place] [phone], Referred Provider Specialty Physical The rapist General Notes Angella Barnes CMA 01/25 09:47:33 AM > ref/,progress note/ ,x ray/ report faxed to [facility] PT dept, Angella Barnes CMA 03/15/2024 02:11:09 PM > Called [facility] de[facility] they stated they have not made patient appt as of yet they get several referral every day . They suggested pt call them to set up appt . I called patient she stated she would contact them and make appt and call the office back with date and time of this appt Referral Priority Routine REASON FOR VISIT Right biceps tendon., Diabetes, Left breast cancer, Hearing loss, Hypothyroid, Hyperlipidemia, Parents esophagus Medications Medication SIG (Take, Route, Frequency, Duration) Notes Start Date End Date Status Hydrocortisone (Perianal) 1 % 1 application Externally Twice a day 05/05/2022 Active Tylenol PM Extra Strength 500-25 MG 1 tablet at bedtime as needed Orally Once a day Active glipiZIDE 5 MG 1 tablet 30 minutes before breakfast Orally Once a day 12/23/2023 Active Ozempic (0.25 or 0.5 MG/DOSE) 2 MG/3ML 0.25 mg Subcutaneous weekly 12/23/2023 Active Aspir-Low 81 MG 1 tablet Orally Once a day Active Econazole Nitrate 1 % 1 application Externally Once a day 10/01/2020 Active Atorvastatin Calcium 20 MG TAKE 1 TABLET BY MOUTH EVERY DAY Active Levothyroxine Sodium 50 MCG TAKE 1 TABLET BY MOUTH EVERY OTHER DAY Active Valsartan 80 MG 1 tablet Orally Once a day 01/23/2023 Active FreeStyle Lite Test - use to check blood sugar daily In Vitro daily DX: E11.9 Diabetes 01/12/2024 Active Lancets - use to check blood sugar daily DX: E11.9 Diabetes 01/12/2024 Active Alcohol Pads 70 % use to check blood sugar daily DX: E11.9 Diabetes 01/12/2024 Active Gauze Pads 2 X2 use to check blood sugar daily DX: E11.9 Diabetes 01/12/2024 Active Omeprazole 40 MG TAKE 1 CAPSULE BY MOUTH EVERY DAY Active FreeStyle Lite w/Device to be use to check blood sugar daily DX: E11.9 Diabetes 01/12/2024 Active Social History Tobacco Use: Social History [...] Additional Findings: Tobacco non-user Ex-cigaret te smoker Problems Problem Type SNOMED Code ICD Code Onset Dates Problem Status W/U Status Risk Notes Problem DM - Diabetes mellitus (11417979) DM (diabetes mellitus) (E11.9) Active confirmed Vital Signs Temperature 97.3 degrees Fahrenheit 01/25/20 24 Blood pressure systolic 134 mm Hg 01/25/20 24 Blood pressure diastolic 81 mm Hg 024 Heart Rate 70 /min 01/25/2024 Height 62 in 01/25/2024 Weight 186 lbs 01/25/2024 BMI 34.02 kg/m2 01/25/2024 Encounters Encounter Location Date Provider Diagnosis Paul Vela III, MD [address] [place] [address] [place] [address] 01/25/2024 Paul Vela Type 2 diabetes mellitus without complication, without long-term current use of insulin E11.9 ; Essential hypertension I10 ; Obesity (BMI 35.0-39.9 without comorbidity) E66.01 and Acute pain of right shoulder M25.511 Assessments Encounter Date Diagnosis (ICD Code) Assessment Notes Treat ment Notes Treatment Clinical Notes 01/25/2024 Type 2 diabetes mellitus without complication, without long-term current use of insulin (ICD-10 - E11.9) She has been compliant with therapy and her hemoglobin A1c is 6.1. We discussed weight loss. She has lost 5 pounds. No change in her therapy was made. 01/25/2024 Essential hypertension (ICD-10 - I10) Her blood pressure is controlled on her current regimen of lisinopril and valsartan, which was continued without change today. 01/25/2024 Obesity (BMI 35.0-39.9 without comorbidity) (ICD-10 - E66.01) She has lost 5 pounds in her body mass index is 34. We discussed her weight loss strategy. She will continue to lose weight at a rate of one half of a pound per week. 01/25/2024 Acute pain of right shoulder (ICD-10 - M25.511) At her request she has been referred for physical therapy. She will avoid heavy lifting. She will use Tylenol and ibuprofen. An x-ray was ordered. If necessary she will be sent to orthopedics. Plan Of Treatment Medication Medication Name Sig Start Date Stop Date Notes Hydrocortisone (Perianal) 1 % 1 application Externally Twice a day 05/05/2022 Tylenol PM Extra Strength 500-25 MG 1 tablet at bedtime as needed Orally Once a day glipiZIDE 5 MG 1 tablet 30 minutes before breakfast Orally Once a day 12/23/2023 Ozempic (0.25 or 0.5 MG/DOSE) 2 MG/3ML 0.25 mg Subcutaneous weekly 12/23/2023 Aspir-Low 81 MG 1 tablet Orally Once a day Econazole Nitrate 1 % 1 application Externally Once a day 10/01/2020 Atorvastatin Calcium 20 MG TAKE 1 TABLET BY MOUTH EVERY DAY Levothyroxine Sodium 50 MCG TAKE 1 TABLET BY MOUTH EVERY OTHER DAY Valsartan 80 MG 1 tablet Orally Once a day 01/23/2023 FreeStyle Lite Test - use to check blood sugar daily In Vitro daily 01/12/2024 DX: E11.9 Diabetes Lancets - use to check blood sugar daily 01/12/2024 DX: E11.9 Diabetes Alcohol Pads 70 % use to check blood sugar daily 01/12/2024 DX: E11.9 Diabetes Gauze Pads 2 X2 use to check blood sugar daily 01/12/2024 DX: E11.9 Diabetes Omeprazole 40 MG TAKE 1 CAPSULE BY MOUTH EVERY DAY FreeStyle Lite w/Device to be use to kushal ck blood sugar daily 01/12/2024 DX: E11.9 Diabetes Pending Test Test Name Order Date PROFILE, FASTING (COMPREHENSIVE METABOLI C) 01/25/2024 CBC w DIFF 01/25/2024 Lipid Panel 01/25/2024 Hemoglobin A1c 01/25/2024 Referrals Referral Date Details 01/25/2024 01/25/2024, right sh oulder pain, [facility], [address] [place] [address], [place], [place], [phone], Next Appt Details Follow Up: 3 Months, Reason: ov review labs Provider Name:Paul Vela , 12/27/2024 09:30:00 AM, [address] [place] [address] DR, [facility] [address], [place], [phone], Progress Notes * Amirah KEATINGOB:[birth year] (73 yo F)Acc No.[id number]:01/25/2024 Progress Notes Patient: Khalida PEOPLES Provider: Edd Vela MD :1950 A ge:73 Y S ex:Female Date:01/25/2024 Address:[address] [place] [address] BY, [id number] Subjective: * Chief Complaints: * R ight biceps tendon.DiabetesLeft breast cancerHearing lossHypothyroidHyperlipidemiaParents esophagus * HPI: C OVID-19 Screening: Questions H [...] COVID-19 in the past? N o * : The patient, a 73-year-old female, reported experiencing pain in her right arm. The pain initially started in 2019 after receiving her COVID-19 vaccination. Although the pain was persistent, it did not hinder her daily activities. However, in the last three months, the pain has significantly worsened. The patient noticed a 'twang' sound during her yoga and swimming exercises, particularly when making full [place] movements with her arm. This was followed by difficulty in moving her arm upwards. The pain seems to originate from her shoulder and radiates down her arm. The patient's niece, who is into sports, suggested that the issue might be with her shoulder. The doctor suspects that the patient might have tendonitis or bursitis. * ROS: G eneral/Constitutional: Admits p ain, R ight shoulder insertion of biceps tendon, reproduced with biceps contraction, no pain to elevation of right arm, otherwise only normal aches and pains. C hills d enies. F atigue a dmits. F ever d enies. ? E NT: Decreased hearing d enies. R espiratory: Cough d enies. C ardiovascular: [...] have been noted. G enitourinary: Frequent urination d enies. M usculoskeletal: Muscle aches d enies. P ainful joints d enies. S ciatica d enies. W eakness d enies. S kin: Itching d enies. R fabriizo d enies. S kin lesion(s)?denies. N eurologic: Difficulty speaking d enies. D izziness d enies.?Headache d enies. L ow back pain d enies. P sychiatric: Depressed mood d enies. * Medical History: * Surgical History: p ilonidial cyst 1971cyst/ abscess on back 1997excision and revision of scars left leg 1988Le breast [place] [facility] [place] 03/10/1999Rig breast mastectomy @ [facility] [place]. Austin 08/13/1999Stage 2 reconstruction of left breast; saline implant 10/18/1999Stage 2 reconstruction of right breast; saline implant 04/03/2000Colonoscopy 12/15/2003Colonoscopy; EGD with biopsy 05/09/2009EGD with biopsy 11/29/2009EGD with biopsy 01/12/2013colonoscopy, Dr. Coy, onetubular adenoma 2014biopsy on head 08/2019Colonoscopy 11/2019le eye lazer treatment 06/2020No history * Hospitalization/Major [...] dditional Findings: Tobacco non-user E x-cigarette smoker S he was born in [place]. She is single with no children. She works at the [employer]. * Medications: T akingOmeprazole 40 MG Capsule Delayed Release TAKE 1 CAPSULE BY MOUTH EVERY DAY Atorvastatin Calcium 20 MG Tablet TAKE 1 TABLET BY MOUTH EVERY DAY Levothyroxine Sodium 50 MCG Tablet TAKE 1 TABLET BY MOUTH EVERY OTHER DAY Valsartan 80 MG Tablet 1 tablet Orally Once a day Aspir-Low 81 MG Tablet Delayed Release 1 tablet Orally Once a day Econazole Nitrate 1 % Cream 1 application Externally Once a day Tylenol PM Extra Strength 500-25 MG Tablet 1 tablet at bedtime as needed Orally Once a day glipiZIDE 5 MG Tablet 1 tablet 30 minutes before breakfast Orally Once a day FreeStyle Lite w/Device Kit to be use to check blood sugar daily , Notes to Pharmacist: DX: E11.9 DiabetesFreeStyle Lite Test - Strip use to check blood sugar daily In Vitro daily , Notes to Pharmacist: DX: E11.9 DiabetesLancets - Miscellaneous use to check blood sugar daily , Notes to Pharmacist: DX: E11.9 DiabetesAlcohol Pads 70 % Pad use to check blood sugar daily , Notes to Pharmacist: DX: E11.9 DiabetesGauze Pads 2 X2 Pad use to check blood sugar daily , Notes to Pharmacist: DX: E11.9 DiabetesTaking Omeprazole 40 MG Capsule Delayed Release TAKE 1 CAPSULE BY MOUTH EVERY DAY Taking Atorvastatin Calcium 20 MG Tablet [...] 1 application Externally Once a day Taking Tylenol PM Extra Strength 500-25 MG Tablet 1 tablet at bedtime as needed Orally Once a day Taking glipiZIDE 5 MG Tablet 1 tablet 30 minutes before breakfast Orally Once a day Taking FreeStyle Lite w/Device Kit to be use to check blood sugar daily , Notes to Pharmacist: DX: E11.9 DiabetesTaking FreeStyle Lite Test - Strip use to check blood sugar daily In Vitro daily , Notes to Pharmacist: DX: E11.9 DiabetesTaking Lancets - Miscellaneous use to check blood sugar daily , Notes to Pharmacist: DX: E11.9 DiabetesTaking Alcohol Pads 70 % Pad use to check blood sugar daily , Notes to Pharmacist: DX: E11.9 DiabetesTaking Gauze Pads 2 X2 Pad use to check blood sugar daily , Notes to Pharmacist: DX: E11.9 DiabetesDiscontinuedHydrocortisone (Perianal) 1 % Cream 1 application Externally Twice a day Ozempic (0.25 or 0.5 MG/DOSE) 2 MG/3ML Solution Pen-injector 0.25 mg Subcutaneous weekly , stop date 11/23/2024Medication List reviewed and reconciled with the patientDiscontinued Hydrocortisone (Perianal) 1 % Cream 1 application Externally Twice a day Discontinued Ozempic (0.25 or 0.5 MG/DOSE) 2 MG/3ML Solution Pen-injector 0.25 mg Subcutaneous weekly , stop date 11/23/2024Medication List reviewed and reconciled with the patient * Allergies: B ee StingRedno[Allergies Verified] Objective: * Vitals: H t: 62, Wt:186, BMI:34.02, BP:134/81, HR:70, Temp:97.3, Ht-cm: 157.48, Wt-k.37. * P ast Orders: Lab:Thyroid Stimulating Horm one * Collection Date 12/14/2023 08/06/2023 03/30/2023 Collection Time 06:17 AM 06:13 AM 06:35 AM Order Date 12/14/2023 08/06/2023 03/30/2023 Thyroid Stimulating Hormone 1.31 (Ref Range: 0.32-4.0 uIU/mL) 2.83 (Ref Range: 0.32-4.0 uIU/mL) 1.82 (Ref Range: 0.32-4.0 uIU/mL) ???Lab:RBS/Hemocue glucose (Order Date - 01/25/2024) (Collection Date & Time - 01/25/2024)?ValueReference Range?RBS71 * Lab:Complete Blood Count Aut o Diff * Collection Date 01/18/2024 12/14/2023 08/06/2023 Collection Time 06:23 AM 06:17 AM 06:13 AM Order Date 01/18/2024 12/14/2023 08/06/2023 White Blood Count 5.4 (Ref Range: 4.8-10.8 X10*3/uL) 5.7 (Ref Range: 4.8-10.8 X10*3/uL) 7.4 (Ref Range: 4.8-10.8 X10*3/uL) Red Blood Count 4.10 L (Ref Range: 4.20-5.50 X10*6/uL) 4.27 (Ref Range: 4.20-5.50 X10*6/uL) 4.30 (Ref Range: 4.20-5.50 X10*6/uL) Hemoglobin 13.1 (Ref Range: 12.0-16.0 g/dl) 13.5 (Ref Range: 12.0-16.0 g/dl) 13.5 (Ref Range: 12.0-16.0 g/dl) Hematocrit 38.8 (Ref Range: 37.0-47.0 %) 40.4 (Ref Range: 37.0-47.0 %) 40.4 (Ref Range: 37.0-47.0 %) Mean Corpuscular Volume 94.6 (Ref Range: 80.0-98.0 fL) 94.6 (Ref Range: 80.0-98.0 fL) 94.0 (Ref Range: 80.0-98.0 fL) Mean Corpuscular Hemoglobin 32.0 (Ref Range: 27.0-33.0 pg) 31.6 (Ref Range: 27.0-33.0 pg) 31.4 (Ref Range: 27.0-33.0 pg) Mean Corpuscular HGB Conc 33.8 (Ref Range: 31.0-35.0 g/dl) 33.4 (Ref Range: 31.0-35.0 g/dl) 33.4 (Ref Range: 31.0-35.0 g/dl) Red Cell Distribution Width 12.6 (Ref Range: 11.0-16.0 %) 12.6 (Ref Range: 11.0-16.0 %) 12.4 (Ref Range: 11.0-16.0 %) Platelet Count 360 (Ref Range: 160-400 X10*3/uL) 371 (Ref Range: 160-400 X10*3/uL) 359 (Ref Range: 160-400 X10*3/uL) Mean Platelet Volume 9.3 L (Ref Range: 9.4-12.3 fL) 9.2 L (Ref Range: 9.4-12.3 fL) 9.1 L (Ref Range: 9.4-12.3 fL) Neutrophils Percent Auto 43.4 L (Ref Range: 45-73 %) 41.6 L (Ref Range: 45-73 %) 42.9 L (Ref Range: 45-73 %) Imm Gran Pct Auto 0.6 H (Ref Range: 0.0-0.4 %) 0.4 (Ref Range: 0.0-0.4 %) 0.5 H (Ref Range: 0.0-0.4 %) Lymphocytes Percent Auto 40.4 H (Ref Range: 20-40 %) 41.1 H (Ref Range: 20-40 %) 40.5 H (Ref Range: 20-40 %) Monocytes Percent Auto 10.2 (Ref Range: 2-11 %) 9.0 (Ref Range: 2-11 %) 9.3 (Ref Range: 2-11 %) Eosinophils Percent Auto 4.1 H (Ref Range: 0-4 %) 6.5 H (Ref Range: 0-4 %) 5.7 H (Ref Range: 0-4 %) Basophils Percent Auto 1.3 (Ref Range: 0-2 %) 1.4 (Ref Range: 0-2 %) 1.1 (Ref Range: 0-2 %) NRBC Pct Auto 0.0 (Ref Range: 0.0-0.2 /100WBC) 0.0 (Ref Range: 0.0-0.2 /100WBC) 0.0 (Ref Range: 0.0-0.2 /100WBC) Neutrophils Absolute Auto 2.4 (Ref Range: 2.0-8.3 x10*3/uL) 2.4 (Ref Range: 2.0-8.3 x10*3/uL) 3.2 (Ref Range: 2.0-8.3 x10*3/uL) Imm Gran Abs Auto 0.03 (Ref Range: 0.00-0.03 X10*3/uL) 0.02 (Ref Range: 0.00-0.03 X10*3/uL) 0.04 H (Ref Range: 0.00-0.03 X10*3/uL) Lymphocytes Absolute Auto 2.2 (Ref Range: 1.2-4.9 X10*3/uL) 2.3 (Ref Range: 1.2-4.9 X10*3/uL) 3.0 (Ref Range: 1.2-4.9 X10*3/uL) Monocytes Absolute Auto 0.6 (Ref Range: 0.1-1.2 X10*3/uL) 0.5 (Ref Range: 0.1-1.2 X10*3/uL) 0.7 (Ref Range: 0.1-1.2 X10*3/uL) Eosinophils Absolute Auto 0.2 (Ref Range: 0.0-0.4 X10*3/uL) 0.4 (Ref Range: 0.0-0.4 X10*3/uL) 0.4 (Ref Range: 0.0-0.4 X10*3/uL) Basophils Absolute Auto 0.1 (Ref Range: 0.0-0.2 X10*3/uL) 0.1 (Ref Range: 0.0-0.2 X10*3/uL) 0.1 (Ref Range: 0.0-0.2 X10*3/uL) NRBC Abs Auto 0.000 (Ref Range: 0.0-0.012 X10*3/uL) 0.000 (Ref Range: 0.0-0.012 X10*3/uL) 0.000 (Ref Range: 0.0-0.012 X10*3/uL) * Lab:Snow Jenkins * Collection Date 01/18/2024 12/14/2023 08/06/2023 Collection Time 06:23 AM 06:17 AM 06:13 AM Order Date 01/18/2024 12/14/2023 08/06/2023 Sodium 134 L (Ref Range: 135-145 mmol/L) 137 (Ref Range: 135-145 mmol/L) 136 (Ref Range: 135-145 mmol/L) Bilirubin Total 0.7 (Ref Range: 0.0-1.0 mg/dL) 0.6 (Ref Range: 0.0-1.0 mg/dL) 0.5 (Ref Range: 0.0-1.0 mg/dL) Aspartate Amino Transferase 29 (Ref Range: 5-31 U/L) 40 H (Ref Range: 5-31 U/L) 27 (Ref Range: 5-31 U/L) Alanine Aminotransferase 26 (Ref Range: 0-31 U/L) 35 H (Ref Range: 0-31 U/L) 28 (Ref Range: 0-31 U/L) Total Protein 7.0 (Ref Range: 6.5-8.0 g/dL) 7.1 (Ref Range: 6.5-8.0 g/dL) 7.0 (Ref Range: 6.5-8.0 g/dL) Albumin Level 4.4 (Ref Range: 3.5-5.0 g/dL) 4.6 (Ref Range: 3.5-5.0 g/dL) 4.3 (Ref Range: 3.5-5.0 g/dL) Alkaline Phosphatase 72 (Ref Range: 39-117 U/L) 80 (Ref Range: 39-117 U/L) 93 (Ref Range: 39-117 U/L) Potassium 4.6 (Ref Range: 3.3-5.1 mmol/L) 5.1 (Ref Range: 3.3-5.1 mmol/L) 4.6 (Ref Range: 3.3-5.1 mmol/L) Chloride 102 (Ref Range: 96-108 mmol/L) 104 (Ref Range: 96-108 mmol/L) 102 (Ref Range: 96-108 mmol/L) Carbon Dioxide 25 (Ref Range: 22-29 mmol/L) 25 (Ref Range: 22-29 mmol/L) 25 (Ref Range: 22-29 mmol/L) Anion Gap 12 (Ref Range: 12-20) 13 (Ref Range: 12-20) 14 (Ref Range: 12-20) Blood Urea Nitrogen 18 H (Ref Range: 9-16 mg/dL) 14 (Ref Range: 9-16 mg/dL) 15 (Ref Range: 9-16 mg/dL) Creatinine 0.99 (Ref Range: 0.5-1.4 mg/dL) 0.95 (Ref Range: 0.5-1.4 mg/dL) 0.91 (Ref Range: 0.5-1.4 mg/dL) Estimated Glomerular Filt Rate 55 58 > 60 Glucose Fasting 114 H (Ref Range: 60-99 mg/dL) 126 H (Ref Range: 60-99 mg/dL) 135 H (Ref Range: 60-99 mg/dL) Calcium 9.9 (Ref Range: 8.4-10.2 mg/dL) 10.1 (Ref Range: 8.4-10.2 mg/dL) 9.6 (Ref Range: 8.4-10.2 mg/dL) * Lab:Microalbumin, Random * Collection Date 01/18/2024 03/31/2023 04/15/2022 Collection Time 08:42 AM 07:30 AM 07:30 AM Order Date 01/18/2024 03/24/2023 04/15/2022 Creatinine Urine 62.06 (Ref Range: mg/dL) 78.52 (Ref Range: mg/dL) 56.35 (Ref Range: mg/dL) Microalbumin Urine 21.0 (Ref Range: mg/L) 19.0 (Ref Range: mg/L) 31.0 (Ref Range: mg/L) Microalbum Creatinine Ratio Ur 33.8 H (Ref Range: <30 ug/mg cr) 24.1 (Ref Range: <30 ug/mg cr) 55.0 (Ref Range: ug/mg cr) * Lab:Hemoglobin A1c * Collection Date 01/18/2024 03/30/2023 12/22/2022 Collection Time 06:23 AM 06:35 AM 09:01 AM Order Date 01/18/2024 03/24/2023 12/19/2022 Hemoglobin A1c % 6.1 H (Ref Range: <6.0 %) 6.2 H (Ref Range: <6.0 %) 6.0 (Ref Range: <6.0 %) Estimated Average Glucose 128 (Ref Range: mg/dL) 131 (Ref Range: mg/dL) 126 (Ref Range: mg/dL) * Lab:URINE DIP STICK * Collection Date 12/23/2023 12/19/2022 08/30/2019 Order Date 12/23/2023 12/19/2022 08/30/2019 SG 1.010 (Ref Range: 1.005 - 1.025) 1.010 (Ref Range: 1.005 - 1.025) 1.010 pH 5.0 (Ref Range: 5.0 - 9.0) 5.0 (Ref Range: 5.0 - 9.0) 5 SID 70 (Ref Range: Negative -) Negative (Ref Range: Negative -) neg NIT negative (Ref Range: Negative -) Negative (Ref Range: Negative -) neg PRO 15 (Ref Range: Negative - Trace) 15 (Ref Range: Negative - Trace) trace GLU Negative (Ref Range: Negative -) Negative (Ref Range: Negative -) normal KET Negative (Ref Range: Negative -) Negative (Ref Range: Negative -) neg UBG 0.2 (Ref Range: 0.1 - 1.8) 0.2 (Ref Range: 0.1 - 1.8) normal ANDRES Negative (Ref Range: 0.2 - 1.3) Negative (Ref Range: 0.2 - 1.3) neg BLD Negative (Ref Range: Negative -) Negative (Ref Range: Negative -) neg Menstrating NR NR no * Lab:Lipid Panel * Collection Date 12/14/2023 [...] mg/dL) 51 (Ref Range: >40 mg/dL) * Lab:Free T4 (Free Thyroxine) * Collection Date 12/14/2023 08/06/2023 03/30/2023 Collection Time 06:17 AM 06:13 AM 06:35 AM Order Date 12/14/2023 08/06/2023 03/24/2023 Free T4 (Free Thyroxine) 1.03 (Ref Range: 0.71-1.85 ng/dL) 0.88 (Ref Range: 0.71-1.85 ng/dL) 0.87 (Ref Range: 0.71-1.85 ng/dL) ???Imaging:XR hand wrist LT (Order Date - 01/05/2024) (Performed Date - 01/05/2024) * Examination: G eneral Examination: GENERAL APPEARANCE: p leasant, well nourished, well developed, in no acute distress, calm and relaxed, obese, woman. HEAD: a traumatic, normocephalic. EYES: e cedrick, perrla, anicteric, conjugate. EARS: N ormal anatomy with mild hearing loss. NOSE: s eptum intact. ORAL CAVITY: n ormal, unremarkable. NECK/THYROID: n o jugular venous distention, no carotid bruit, thyroid normal. LYMPH NODES: n o enlarged lymph nodes,spleen normal. SKIN: n o suspicious lesions, anicteric. HEART: n o clicks, gallops, murmurs, or rubs, regular rhythm, S1, S2 normal, no s3, or vascular bruits. LUNGS: c lear to auscultation . BREASTS: B ilateral mastectomy sites well healed with no sign of relapse breast cancer. ABDOMEN: b owel sounds normal, no ascites, no organomegaly, no mass. RECTAL EXAM: n ot examined. MUSCULOSKELETAL: e xtremities unremarkable, no clubbing, cyanosis or edema, Tenderness over biceps tendon insertion at the shoulder. PERIPHERAL PULSES: n ormal. NEUROLOGIC: a lert and oriented, cranial nerves 2-12 grossly intact, deep tendon reflexes 2+ symmetrical, motor strength normal upper and lower extremities, sensory exam intact. PSYCH: a lert, oriented. - : Molly nance examination:The doctor examined the patient's shoulder and arm, suspecting tendonitis or bursitis. The patient reported pain in her arm, particularly when moving it upwards. Assessment: * Assessment: 1. T ype 2 diabetes mellitus without complication, without long-term current use of insulin - E11.9 (Primary) N otes :She has been compliant with therapy and her hemoglobin A1c is 6.1. We discussed weight loss. She has lost 5 pounds. No change in her therapy was made. 2 . E ssential hypertension - I10 N otes :Her blood pressure is controlled on her current regimen of lisinopril and valsartan, which was continued without change today. 3 . O besity (BMI 35.0-39.9 without comorbidity) - E66.01 N otes :She has lost 5 pounds in her body mass index is 34. We discussed her weight loss strategy.? She will continue to lose weight at a rate of one half of a pound per week. 4 . A cute pain of right shoulder - M25.511 N otes :At her request she has been referred for physical therapy. She will avoid heavy lifting. She will use Tylenol and ibuprofen. An x-ray was ordered. If necessary she will be sent to orthopedics. Plan: * Treatment: 2. E ssential hypertension [...] bedtime as needed, Orally, Once a day; C ontinue glipiZIDE Tablet, 5 MG, 1 tablet 30 minutes before breakfast, Orally, Once a day; C ontinue Ozempic (0.25 or 0.5 MG/DOSE) Solution Pen-injector, 2 MG/3ML, 0.25 mg, Subcutaneous, weekly. L AB: PROFILE, FASTING (COMPREHENSIVE METABOLIC) L AB: CBC w DIFF L AB: Lipid Panel L AB: Hemoglobin A1c 3. O besity (BMI 35.0-39.9 without comorbidity) L AB: PROFILE, FASTING (COMPREHENSIVE METABOLIC) L AB: CBC w DIFF L AB: Lipid Panel L AB: Hemoglobin A1c 4. A cute pain of right shoulder I maging: XR SHOULDER RT 2 VIEWS Referral To:[facility] Physical Therapist Reason:right shoulder pain 5. O thers Continue Omeprazole Capsule Delayed Release, 40 MG, TAKE 1 CAPSULE BY MOUTH EVERY DAY; C ontinue Atorvastatin Calcium Tablet, 20 MG, TAKE 1 TABLET BY MOUTH EVERY DAY; C ontinue Levothyroxine Sodium Tablet, 50 MCG, TAKE 1 TABLET BY MOUTH EVERY OTHER DAY; C ontinue Valsartan Tablet, 80 MG, 1 tablet, Orally, Once a day. * Labs: * L ab: RBS/Hemocue glucose (Collection Date & Time - 01/25/2024) Value Reference Range R BS 71 * Procedure Codes: 8 2947 ASSAY, GLUCOSE, BLOOD QUANT * Preventive Medicine: Counseling: C are goal [...] tobacco use and urged to quit. 1 03/27/2023 DM Care Plan: P atient Lifestyle Goals P atient wants to be able to manage diabetes without too much effort. T reatment Goals H bA1C < 7.0, Blood Sugars less than < 115. B arriers n o barriers. S elf-Managment Goals W ork on weight loss, with a goal of losing 1 lb per week. * Follow Up: 3 Months (Reason: ov review labs) * Images: * Sign off status: Completed true * Provider: Edd Vela MD Date: 03/27/2023 Generated for Jess carbajal/Darinel/Hiramitting on: 06:07 AM EDT History and Physical Notes * HPI (History of Present Illness) Category Sub-Category Detail Notes COVID-19 Screening Questions Have you had any new onset fever, chills, cough, congestion, sore throat, shortness of breath, muscle aches?: No Have you been exposed to the virus with n the last 10 days?: No Have you travelled internationally in [facility] last 10 days?: No Have you been exposed to COVID-19 in the past?: No Examination Category Sub-Category Detail Notes General Examination GENERAL APPEARANCE: pleasant , well nourished, well developed, in no acute distress, calm and relaxed, obese, woman HEAD: atraumatic, normocep halic EYES: eomi, perrla, anicte domingo, conjugate EARS: Normal anatomy with mild hearing loss NOSE: septum intact NECK/THYROID: no jugular venous di stention, no carotid bruit, thyroid normal HEART: no clicks, gallops, murmurs, or rubs, regular rhythm, S1, S2 normal, no s3, or vascular bruits LUNGS: clear to auscultatio n ABDOMEN: bowel sounds normal, no ascites, no organomegaly, no mass NEUROLOGIC: alert and oriented, cranial nerves 2-12 grossly intact, deep tendon reflexes 2+ symmetrical, motor strength normal upper and lower extremities, sensory exam intact SKIN: no suspicious lesion s, anicteric PERIPHERAL PULSES: normal BREASTS: Bilateral mastectomy sites well healed with no sign of relapse breast cancer MUSCULOSKELETAL: extremities unremark able, no clubbing, cyanosis or edema, Tenderness over biceps tendon insertion at the shoulder LYMPH NODES: no enlarged lymph no dieudonne,spleen normal RECTAL EXAM: not examined PSYCH: alert, oriented ORAL CAVITY: normal, unremarkable Consultation Request Notes Referral Date Referring Provider Referred Provider Rj cheema 01/25/2024 Dane [facility], Core Physical Therapy right shoulder pain
--- OUTSIDE RECORDS SUMMARY | 2024-04-25 06:00 | XMS_ITS ---
Author Organization Paul Vela III, MD Address [address] [place] [address] Care Team Providers Care Parts Room Clerk Name Role Phone Dr. Paul Vela III Primary Care Provider [phone] Allergies Allergen (clinical drug ingredient) Drug/Non Drug [...] Date Provider Diagnosis Paul Vela III, MD [address] [place] [address] [place] [address] 04/25/2024 Paul Vela Type 2 diabetes zenaida [...] Up: 3 Months, Reason: OV Provider Name:Paul Vela , 12/27/2024 09:30:00 AM, [address] [place] [address] , [place] [address], [place], [address], Progress Notes * Amirah KEATINGOB:[birth year] (73 yo F)Acc No.[id number]:04/25/2024 Progress Notes Patient: Kyung MIGUEL Khalida Provider: Edd Vela MD :1950 A ge:73 Y S ex:Female Date:04/25/2024 Address:[address] [place] [address], [id number] Subjective: * Chief Complaints: * D iabetesGERDBreast [...] scars left leg 1988Left breast mastectomy @ [facility] [place] -Dr. Austin 03/10/1999Right breast mastectomy @ [facility] [place] -Dr. Austin 08/13/1999Stage 2 reconstruction of left [...] x-cigarette smoker S he was born in [place]. She is single with no children. 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 * Medications: T akingVitamin B12 Vitamin D3 [...] with the patient * Allergies: B ee StingSeasonaleno[Allergies Verified] Objective: * Vitals: H t: 62, [...] 49 (Ref Range: >40 mg/dL) * Lab:Comprehensive [place]. Pane l Fast * Collection Date 04/15/2024 [...] * Provider: Edd Vela MD Date: 0 04/25/2024 Generated for Rosaleei raven/Darinel/eTaliceitting on: 1 06:05 AM EDT History and Physical Notes * [...]
--- OUTSIDE RECORDS SUMMARY | 2024-07-26 05:15 | XMS_ITS ---
Author Organization Paul Vela III, MD Address [address] [place] [address] Care Team Providers Care Molded Frames Assembler Name Role Phone Dr. Paul Vela III Primary Care Provider [phone] Allergies Allergen (clinical drug ingredient) Drug/Non Drug Allergy documented on EMR Reaction Allergy Type Onset Date Status Bee Sting Unknown Allergy Active Seasonale Unknown Drug Allergy Active REASON FOR VISIT Diabetes, Breast cancer, Bilateral mastectomy, Perez's esophagus, Hypothyroidism, Obesity Medications Medication SIG (Take, Route, Frequency, Duration) Notes Start Date End Date Status Atorvastatin Calcium 20 MG TAKE 1 TABLET BY MOUTH EVERY DAY Active Levothyroxine Sodium 50 MCG TAKE 1 TABLET BY MOUTH EVERY OTHER DAY Active Valsartan 80 MG TAKE 1 TABLET BY MOUTH EVERY DAY FOR 90 DAYS Active FreeStyle Lite w/Device to be use to check blood sugar daily DX: E11.9 Diabetes 01/12/2024 Active Levothyroxine Sodium 75 MCG TAKE 1 TABLET BY MOUTH EVERY OTHER DAY Active Tylenol PM Extra Strength 500-25 MG 1 tablet at bedtime as needed Orally Once a day Active Vitamin B12 Active Vitamin D3 Active glipiZIDE 5 MG 1 tablet 30 minutes before breakfast Orally Once a day 12/23/2023 Active Ozempic (0.25 or 0.5 MG/DOSE) 2 MG/3ML 0.25 mg Subcutaneous weekly 12/23/2023 Active Hydrocortisone (Perianal) 1 % 1 application Externally Twice a day 05/05/2022 Active Aspir-Low 81 MG 1 tablet Orally Once a day Active Econazole Nitrate 1 % 1 application Externally Once a day 10/01/2020 Active Gauze Pads 2 X2 use to [...] non-user Ex-cigaret te smoker Vital Signs Temperature 97.7 degrees Fahrenheit 07/27/19 25 Blood pressure systolic 140 mm Hg 07/27/19 25 Blood pressure diastolic 74 mm Hg 025 Heart Rate 73 /min 07/26/2024 Height 62 in 07/26/2024 Weight 186 lbs 07/26/2024 BMI 34.02 kg/m2 07/26/2024 Encounters Encounter Location Date Provider Diagnosis Paul Vela III, MD [address] [place] [address] [place], [place] [address] 07/26/2024 Paul Vela Type 2 diabetes zenaida itus without complication, without long-term current use of insulin E11.9 ; Essential hypertension I10 ; History of cancer of left breast Z85.3 ; Hearing loss in right ear H91.91 ; Obesity (BMI 35.0-39.9 without comorbidity) E66.01 ; Hypothyroidism E03.9 ; Osteoarthritis M19.90 ; Carpal tunnel syndrome G56.00 ; Hiatal hernia K44.9 ; Barretts esophagus K22.70 ; Former smoker Z87.891 ; History of bilateral mastectomy Z90.13 and Hyperlipidemia E78.5 Assessments Encounter Date Diagnosis (ICD Code) Assessment Notes Treat ment Notes Treatment Clinical Notes 07/26/2024 Type 2 diabetes mellitus without complication, without long-term current use of insulin (ICD-10 - E11.9) She has been compliant with therapy and her hemoglobin A1c is 5.7. We discussed weight loss. She has lost 5 pounds. No change in her therapy was made. 07/26/2024 Essential hypertension (ICD-10 - I10) Her blood pressure is controlled on her current regimen of lisinopril and valsartan, which was continued without change today. 07/26/2024 History of cancer of left breast (ICD-10 - Z85.3) There is no sign of recurrent cancer at this time. She reports a sister with breast cancer. She was offered genetic testing and will consider it. No decision was made today. 07/26/2024 Hearing loss in righ t ear (ICD-10 - H91.91) Her hearing loss is stable and well compensated. She is mild hearing loss in the left ear as well. 07/26/2024 Obesity (BMI 35.0-39.9 without comorbidity) (ICD-10 - E66.01) Her weight has been stable. She has lost 1 pound. We discussed her diet and nutrition. We made a plan to lose weight at a rate of one half of a pound per week. 07/26/2024 Hypothyroidism (ICD-10 - E03.9) Comprehensive blood work including thyroid function tests have been ordered. No change in her regimen was necessary today. She appears to be euthyroid. 07/26/2024 Osteoarthritis (ICD-10 - M19.90) She has occasional joint pain in his knees, shoulders and hands. She is able to conduct all of the activities of daily living. She describes the arthritis as a nuisance. It is worse in her knees. 07/26/2024 Carpal tunnel syndrome (ICD-10 - G56.00) She continues to have occasional wrist pain. She says it is not severe enough at this time to consider surgery. 07/26/2024 Hiatal hernia (ICD-1 0 - K44.9) Some of these symptoms may be the hiatal hernia combined with inflammation. Esophagus. If she does not feel better soon . She will be referred to GI. 07/26/2024 Barretts esophagus (ICD-10 - K22.70) She is up-to-date with endoscopy. We reviewed the necessity for this and the importance of continued surveillance. 07/26/2024 Former smoker (ICD-1 0 - Z87.891) She is highly motivated not to smoke further. She has a plan to prrevent relapse and times of stress and illness. 07/26/2024 History of bilateral mastectomy (ICD-10 - Z90.13) The bilateral mastectomy sites are free relapse. No sign of recurrent breast cancer was noted today. 07/26/2024 Hyperlipidemia (ICD-10 - E78.5) Her lipids are stable at this time and in the normal range. Current therapy was continued. I recommended aggressive weight loss, sodium restriction with a diet low animal fat. Plan Of Treatment Medication Medication Name Sig Start Date Stop Date Notes Atorvastatin Calcium 20 MG TAKE 1 TABLET BY MOUTH EVERY DAY Levothyroxine Sodium 50 MCG TAKE 1 TABLET BY MOUTH EVERY OTHER DAY Valsartan 80 MG TAKE 1 TABLET BY VALERIY TH EVERY DAY FOR 90 DAYS FreeStyle Lite w/Device to be use to kushal ck blood sugar daily 01/12/2024 DX: E11.9 Diabetes Levothyroxine Sodium 75 MCG TAKE 1 TABLET BY MOUTH EVERY OTHER DAY Tylenol PM Extra Strength 500-25 MG 1 tablet at bedtime as needed Orally Once a day Vitamin B12 Vitamin D3 glipiZIDE 5 MG 1 tablet 30 minutes before breakfast Orally Once a day 12/23/2023 Ozempic (0.25 or 0.5 MG/DOSE) 2 MG/3ML 0.25 mg Subcutaneous weekly 12/23/2023 Hydrocortisone (Perianal) 1 % 1 application Externally Twice a day 05/05/2022 Aspir-Low 81 MG 1 tablet Orally Once a day Econazole Nitrate 1 % 1 application Externally Once a day 10/01/2020 Gauze Pads 2 X2 use to check [...] Order Date PROFILE, FASTING (COMPREHENSIVE METABOLI C) 07/26/2024 TSH (THYROID STIMULATING HORMONE) 2024 CBC w DIFF 07/26/2024 Lipid Panel 07/26/2024 Vitamin B12 07/26/2024 Vitamin D 25-OH Total 07/26/2024 Free T4 (Free Thyroxine) 07/26/2024 Microalbumin, Random 07/26/2024 Hemoglobin A1c 07/26/2024 Next Appt Details Follow Up: As Scheduled, Nicki son: Annual Exam Provider Name:Paul Vela , 12/27/2024 09:30:00 AM, [address] [place] [address] [address], [place], [address], Progress Notes * Amirah KEATINGOB:[birth year] (74 yo F)Acc No.[id number]:07/26/2024 Progress Notes Patient: Khalida PEOPLES Provider: Edd Vela MD :1950 A ge:74 Y S ex:Female Date:07/26/2024 Address:[address] [place] [address], [phone] Subjective: * Chief Complaints: * D iabetesBreast cancerBilateral mastectomyBarrett's esophagusHypothyroidismObesity * HPI: C OVID-19 Screening: S he returns for medical management of numerous issues. He remains in remission from breast cancer with no relapse. Her hemoglobin A1c was 5.7. There is been no changes in her medication. She continues to have pain in her right biceps. She has been to physical therapy and has been given stretching exercises which she is doing. Her heartburn has been well controlled with medication. Her hearing loss is unchanged. She continues her efforts at weight loss.She has lost 1 pound. Her blood pressure is stable. Questions H ave you had any new onset fever, chills, cough, congestion, sore throat, shortness of breath, muscle aches? N o * ROS: G eneral/Constitutional: pain R ight upper arm, otherwise only normal aches and pains. [...] scars left leg 1988Le breast mastectomy @ [facility] [place]. [place] 03/10/1999Rig breast mastectomy @ [facility] [place]Dr. Austin 08/13/1999Stage 2 [...] x-cigarette smoker S he was born in [place]. She is single with no children. She works at the [employer]. * Medications: T akingValsartan 80 MG Tablet TAKE 1 TABLET BY MOUTH EVERY DAY FOR 90 DAYS FreeStyle Lite w/Device Kit to be use [...] TAKE 1 CAPSULE BY MOUTH EVERY DAY Aspir-Low 81 MG [...] minutes before breakfast Orally Once a day Ozempic (0.25 or 0.5 MG/DOSE) 2 MG/3ML Solution Pen-injector 0.25 mg Subcutaneous weekly Vitamin B12 Vitamin D3 Levothyroxine Sodium 75 MCG Tablet TAKE 1 TABLET BY MOUTH EVERY OTHER DAY Atorvastatin Calcium 20 MG Tablet TAKE 1 TABLET BY MOUTH EVERY DAY Levothyroxine Sodium 50 MCG Tablet TAKE 1 TABLET BY MOUTH EVERY OTHER DAY Medication List reviewed and reconciled with the patientTaking Valsartan 80 MG Tablet TAKE 1 TABLET BY MOUTH EVERY DAY FOR 90 DAYS Taking FreeStyle Lite w/Device Kit to be [...] 1 CAPSULE BY MOUTH EVERY DAY Taking Aspir-Low 81 [...] before breakfast Orally Once a day Taking Ozempic (0.25 or 0.5 MG/DOSE) 2 MG/3ML Solution Pen-injector 0.25 mg Subcutaneous weekly Taking Vitamin B12 Taking Vitamin D3 Taking Levothyroxine Sodium 75 MCG Tablet TAKE 1 TABLET BY MOUTH EVERY OTHER DAY Taking Atorvastatin Calcium 20 MG Tablet TAKE 1 TABLET BY MOUTH EVERY DAY Taking Levothyroxine Sodium 50 MCG Tablet TAKE 1 TABLET BY MOUTH EVERY OTHER DAY Medication List reviewed and reconciled with the patient * Allergies: B ee Tomaseli[Allergies Verified] Objective: * Vitals: H t: 62, Wt:186, BMI:34.02, BP:140/74, HR:73, Temp:97.7, Ht-cm: 157.48, Wt-k.37. * P ast Orders: Lab:Lipid Panel * Collection Date 07/15/2024 04/15/2024 12/14/2023 Collection Time 06:58 AM 07:59 AM 06:17 AM Order Date 07/15/2024 04/15/2024 12/14/2023 Triglycerides 126 (Ref Range: <150 mg/dL) 86 (Ref Range: <150 mg/dL) 144 (Ref Range: <150 mg/dL) Cholesterol 161 (Ref Range: <200 mg/dL) 138 (Ref Range: <200 mg/dL) 165 (Ref Range: <200 mg/dL) LDL Cholesterol Calculated 81 (Ref Range: <100 mg/dL) 65 (Ref Range: <100 mg/dL) 84 (Ref Range: <100 mg/dL) HDL Cholesterol 55 (Ref Range: >40 mg/dL) 56 (Ref Range: >40 mg/dL) 53 (Ref Range: >40 mg/dL) * Lab:Free T4 (Free Thyroxine) * Collection Date 07/15/2024 12/14/2023 08/06/2023 Collection Time 06:58 AM 06:17 AM 06:13 AM Order Date 07/15/2024 12/14/2023 08/06/2023 Free T4 (Free Thyroxine) 0.92 (Ref Range: 0.71-1.85 ng/dL) 1.03 (Ref Range: 0.71-1.85 ng/dL) 0.88 (Ref Range: 0.71-1.85 ng/dL) * Lab:Thyroid Stimulating Horm one * Collection Date 07/15/2024 12/14/2023 08/06/2023 Collection Time 06:58 AM 06:17 AM 06:13 AM Order Date 07/15/2024 12/14/2023 08/06/2023 Thyroid Stimulating Hormone 1.62 (Ref Range: 0.32-4.0 uIU/mL) 1.31 (Ref Range: 0.32-4.0 uIU/mL) 2.83 (Ref Range: 0.32-4.0 uIU/mL) * Lab:Microalbumin, Random * Collection Date 07/15/2024 01/18/2024 03/31/2023 Collection Time 06:42 AM 08:42 AM 07:30 AM Order Date 07/15/2024 01/18/2024 03/24/2023 Creatinine Urine 44.56 (Ref Range: mg/dL) 62.06 (Ref Range: mg/dL) 78.52 (Ref Range: mg/dL) Microalbumin Urine 11.0 (Ref Range: mg/L) 21.0 (Ref Range: mg/L) 19.0 (Ref Range: mg/L) Microalbum Creatinine Ratio Ur 24.6 (Ref Range: <30 ug/mg cr) 33.8 H (Ref Range: <30 ug/mg cr) 24.1 (Ref Range: <30 ug/mg cr) * Lab:Complete Blood Count Aut o Diff * Collection Date 07/15/2024 04/15/2024 01/18/2024 Collection Time 06:58 AM 06:27 AM 06:23 AM Order Date 07/15/2024 04/15/2024 01/18/2024 White Blood Count 5.5 (Ref Range: 4.8-10.8 X10*3/uL) 5.8 (Ref Range: 4.8-10.8 X10*3/uL) 5.4 (Ref Range: 4.8-10.8 X10*3/uL) Red Blood Count 4.18 L (Ref Range: 4.20-5.50 X10*6/uL) 4.18 L (Ref Range: 4.20-5.50 X10*6/uL) 4.10 L (Ref Range: 4.20-5.50 X10*6/uL) Hemoglobin 13.3 (Ref Range: 12.0-16.0 g/dl) 13.4 (Ref Range: 12.0-16.0 g/dl) 13.1 (Ref Range: 12.0-16.0 g/dl) Hematocrit 39.5 (Ref Range: 37.0-47.0 %) 39.3 (Ref Range: 37.0-47.0 %) 38.8 (Ref Range: 37.0-47.0 %) Mean Corpuscular Volume 94.5 (Ref Range: 80.0-98.0 fL) 94.0 (Ref Range: 80.0-98.0 fL) 94.6 (Ref Range: 80.0-98.0 fL) Mean Corpuscular Hemoglobin 31.8 (Ref Range: 27.0-33.0 pg) 32.1 (Ref Range: 27.0-33.0 pg) 32.0 (Ref Range: 27.0-33.0 pg) Mean Corpuscular HGB Conc 33.7 (Ref Range: 31.0-35.0 g/dl) 34.1 (Ref Range: 31.0-35.0 g/dl) 33.8 (Ref Range: 31.0-35.0 g/dl) Red Cell Distribution Width 12.7 (Ref Range: 11.0-16.0 %) 12.0 (Ref Range: 11.0-16.0 %) 12.6 (Ref Range: 11.0-16.0 %) Platelet Count 342 (Ref Range: 160-400 X10*3/uL) 369 (Ref Range: 160-400 X10*3/uL) 360 (Ref Range: 160-400 X10*3/uL) Mean Platelet Volume 9.0 L (Ref Range: 9.4-12.3 fL) 9.1 L (Ref Range: 9.4-12.3 fL) 9.3 L (Ref Range: 9.4-12.3 fL) Neutrophils Percent Auto 47.2 (Ref Range: 45-73 %) 43.2 L (Ref Range: 45-73 %) 43.4 L (Ref Range: 45-73 %) Imm Gran Pct Auto 0.2 (Ref Range: 0.0-0.4 %) 0.3 (Ref Range: 0.0-0.4 %) 0.6 H (Ref Range: 0.0-0.4 %) Lymphocytes Percent Auto 34.9 (Ref Range: 20-40 %) 42.8 H (Ref Range: 20-40 %) 40.4 H (Ref Range: 20-40 %) Monocytes Percent Auto 11.3 H (Ref Range: 2-11 %) 9.0 (Ref Range: 2-11 %) 10.2 (Ref Range: 2-11 %) Eosinophils Percent Auto 5.3 H (Ref Range: 0-4 %) 3.3 (Ref Range: 0-4 %) 4.1 H (Ref Range: 0-4 %) Basophils Percent Auto 1.1 (Ref Range: 0-2 %) 1.4 (Ref Range: 0-2 %) 1.3 (Ref Range: 0-2 %) NRBC Pct Auto 0.0 (Ref Range: 0.0-0.2 /100WBC) 0.0 (Ref Range: 0.0-0.2 /100WBC) 0.0 (Ref Range: 0.0-0.2 /100WBC) Neutrophils Absolute Auto 2.6 (Ref Range: 2.0-8.3 x10*3/uL) 2.5 (Ref Range: 2.0-8.3 x10*3/uL) 2.4 (Ref Range: 2.0-8.3 x10*3/uL) Imm Gran Abs Auto 0.01 (Ref Range: 0.00-0.03 X10*3/uL) 0.02 (Ref Range: 0.00-0.03 X10*3/uL) 0.03 (Ref Range: 0.00-0.03 X10*3/uL) Lymphocytes Absolute Auto 1.9 (Ref Range: 1.2-4.9 X10*3/uL) 2.5 (Ref Range: 1.2-4.9 X10*3/uL) 2.2 (Ref Range: 1.2-4.9 X10*3/uL) Monocytes Absolute Auto 0.6 (Ref Range: 0.1-1.2 X10*3/uL) 0.5 (Ref Range: 0.1-1.2 X10*3/uL) 0.6 (Ref Range: 0.1-1.2 X10*3/uL) Eosinophils Absolute Auto 0.3 (Ref Range: 0.0-0.4 X10*3/uL) 0.2 (Ref Range: 0.0-0.4 X10*3/uL) 0.2 (Ref Range: 0.0-0.4 X10*3/uL) Basophils Absolute Auto 0.1 (Ref Range: 0.0-0.2 X10*3/uL) 0.1 (Ref Range: 0.0-0.2 X10*3/uL) 0.1 (Ref Range: 0.0-0.2 X10*3/uL) NRBC Abs Auto 0.000 (Ref Range: 0.0-0.012 X10*3/uL) 0.000 (Ref Range: 0.0-0.012 X10*3/uL) 0.000 (Ref Range: 0.0-0.012 X10*3/uL) * Lab:Hemoglobin A1c * Collection Date 07/15/2024 04/15/2024 01/18/2024 Collection Time 06:58 AM 06:27 AM 06:23 AM Order Date 07/15/2024 04/15/2024 01/18/2024 Hemoglobin A1c % 5.7 (Ref Range: <6.0 %) 5.7 (Ref Range: <6.0 %) 6.1 H (Ref Range: <6.0 %) Estimated Average Glucose 117 (Ref Range: mg/dL) 117 (Ref Range: mg/dL) 128 (Ref Range: mg/dL) * Lab:Snow Eng. Christiano l Fast * Collection Date 07/15/2024 04/15/2024 01/18/2024 Collection Time 06:58 AM 07:59 AM 06:23 AM Order Date 07/15/2024 04/15/2024 01/18/2024 Sodium 139 (Ref Range: 135-145 mmol/L) 137 (Ref Range: 135-145 mmol/L) 134 L (Ref Range: 135-145 mmol/L) Bilirubin Total 0.7 (Ref Range: 0.0-1.0 mg/dL) 0.7 (Ref Range: 0.0-1.0 mg/dL) 0.7 (Ref Range: 0.0-1.0 mg/dL) Aspartate Amino Transferase 32 H (Ref Range: 5-31 U/L) 29 (Ref Range: 5-31 U/L) 29 (Ref Range: 5-31 U/L) Alanine Aminotransferase 28 (Ref Range: 0-31 U/L) 25 (Ref Range: 0-31 U/L) 26 (Ref Range: 0-31 U/L) Total Protein 7.1 (Ref Range: 6.5-8.0 g/dL) 7.4 (Ref Range: 6.5-8.0 g/dL) 7.0 (Ref Range: 6.5-8.0 g/dL) Albumin Level 4.6 (Ref Range: 3.5-5.0 g/dL) 4.3 (Ref Range: 3.5-5.0 g/dL) 4.4 (Ref Range: 3.5-5.0 g/dL) Alkaline Phosphatase 78 (Ref Range: 39-117 U/L) 77 (Ref Range: 39-117 U/L) 72 (Ref Range: 39-117 U/L) Potassium 4.8 (Ref Range: 3.3-5.1 mmol/L) 4.6 (Ref Range: 3.3-5.1 mmol/L) 4.6 (Ref Range: 3.3-5.1 mmol/L) Chloride 105 (Ref Range: 96-108 mmol/L) 103 (Ref Range: 96-108 mmol/L) 102 (Ref Range: 96-108 mmol/L) Carbon Dioxide 26 (Ref Range: 22-29 mmol/L) 25 (Ref Range: 22-29 mmol/L) 25 (Ref Range: 22-29 mmol/L) Anion Gap 13 (Ref Range: 12-20) 14 (Ref Range: 12-20) 12 (Ref Range: 12-20) Blood Urea Nitrogen 14 (Ref Range: 9-16 mg/dL) 14 (Ref Range: 9-16 mg/dL) 18 H (Ref Range: 9-16 mg/dL) Creatinine 0.90 (Ref Range: 0.5-1.4 mg/dL) 0.85 (Ref Range: 0.5-1.4 mg/dL) 0.99 (Ref Range: 0.5-1.4 mg/dL) Estimated Glomerular Filt Rate > 60 > 60 55 Glucose Fasting 117 H (Ref Range: 60-99 mg/dL) 111 H (Ref Range: 60-99 mg/dL) 114 H (Ref Range: 60-99 mg/dL) Calcium 9.8 (Ref Range: 8.4-10.2 mg/dL) 9.8 (Ref Range: 8.4-10.2 mg/dL) 9.9 (Ref Range: 8.4-10.2 mg/dL) * Examination: G eneral Examination: GENERAL APPEARANCE: p leasant, well nourished, well developed, in no acute distress, calm and relaxed, obese, woman. HEAD: a traumatic, normocephalic. EYES: e cedrick, perrla, anicteric, conjugate. EARS: N ormal anatomy with hearing loss in the right ear.? NOSE: s eptum intact. ORAL CAVITY: n ormal, unremarkable. NECK/THYROID: n o jugular venous distention, no carotid bruit, thyroid normal. LYMPH NODES: n o enlarged lymph nodes,spleen normal. SKIN: n o suspicious lesions, anicteric. HEART: n o clicks, gallops, murmurs, or rubs, regular rhythm, S1, S2 normal, no s3, or vascular bruits. LUNGS: c lear to auscultation . BREASTS: B ilateral mastectomy surgery relapse her new primary. ABDOMEN: b owel sounds normal, no ascites, no organomegaly, no mass. RECTAL EXAM: n ot examined. MUSCULOSKELETAL: e xtremities unremarkable, no clubbing, cyanosis or edema, Mild pain to contraction right biceps, normal range of motion elbow and wrist. PERIPHERAL PULSES: n ormal. NEUROLOGIC: a lert [...] continued without change today. 3 . H istory of cancer of left breast - Z85.3 N otes :There is no sign of recurrent cancer at this time. She reports a sister with breast cancer. She was offered genetic testing and will consider it. No decision was made today. 4 . H earing loss in right ear - H91.91 N otes :Her hearing loss is stable and well compensated. She is mild hearing loss in the left ear as well. 5 . O besity (BMI 35.0-39.9 without comorbidity) - E66.01 N otes :Her weight has been stable. She has lost 1 pound. We discussed her diet and nutrition. We made a plan to lose weight at a rate of one half of a pound per week. 6 . H ypothyroidism - E03.9 N otes :Comprehensive blood work including thyroid function tests have been ordered. No change in her regimen was necessary today. She appears to be euthyroid. 7 . O steoarthritis - M19.90 N otes :She has occasional joint pain in his knees, shoulders and hands. She is able to conduct all of the activities of daily living. She describes the arthritis as a nuisance. It is worse in her knees. 8 . C arpal tunnel syndrome - G56.00 N otes :She continues to have occasional wrist pain. She says it is not severe enough at this time to consider surgery. 9 . H iatal hernia - K44.9 N otes :Some of these symptoms may be the hiatal hernia combined with inflammation. Esophagus. If she does not feel better soon . She will be referred to GI. 1 0. B arretts esophagus - K22.70 N otes :She is up-to-date with endoscopy. We reviewed the necessity for this and the importance of continued surveillance. 1 1. F ormer smoker - Z87.891 N otes :She is highly motivated not to smoke further. She has a plan to prrevent relapse and times of stress and illness. 1 2. H istory of bilateral mastectomy - Z90.13 N otes :The bilateral mastectomy sites are free relapse. No sign of recurrent breast cancer was noted today. 1 3. H yperlipidemia - E78.5 N otes :Her lipids are stable at this time and in the normal range. Current therapy was continued. I recommended aggressive weight loss, sodium restriction with a diet low animal fat. Plan: * Treatment: 2. E ssential hypertension [...] DIFF L AB: Lipid Panel L AB: Vitamin B12 L AB: Vitamin D 25-OH Total L AB: Free T4 (Free Thyroxine) L AB: Microalbumin, Random L AB: Hemoglobin A1c 3. H ypothyroidism L AB: PROFILE, FASTING (COMPREHENSIVE METABOLIC) L AB: TSH (THYROID STIMULATING HORMONE) L AB: CBC w DIFF L AB: Lipid Panel L AB: Vitamin B12 L AB: Vitamin D 25-OH Total L AB: Free T4 (Free Thyroxine) L AB: Microalbumin, Random L AB: Hemoglobin A1c 4. O thers Continue Atorvastatin Calcium Tablet, 20 MG, TAKE 1 TABLET BY MOUTH EVERY DAY; C ontinue Levothyroxine Sodium Tablet, 50 MCG, TAKE 1 TABLET BY MOUTH EVERY OTHER DAY; C ontinue Valsartan Tablet, 80 MG, TAKE 1 TABLET [...] tobacco use and urged to quit. 0 07/26/2024 DM Care Plan: P atient Lifestyle Goals P atient wants to be able to manage diabetes without too much effort. T reatment Goals H bA1C < 7.0, Blood Sugars less than < 115. B arriers n o barriers. S elf-Managment Goals W ork on weight loss, with a goal of losing 1 lb per week. * Follow Up: A s Scheduled (Reason: Annual Exam) * Images: * Sign off status: Completed true * Provider: Edd Vela MD Date: 0 07/26/2024 Generated for Jess carbajal/Darinel/Hiramitting on: 06:05 AM EDT History and Physical Notes [...] anicte domingo, conjugate EARS: Normal anatomy with hearing loss in the right ear NOSE: septum intact NECK/THYROID: no jugular venous [...] anicteric PERIPHERAL PULSES: normal BREASTS: Bilateral mastectomy surgery relapse her new primary MUSCULOSKELETAL: extremities unremark able, no clubbing, cyanosis or edema, Mild pain to contraction right biceps, normal range of motion elbow and wrist LYMPH NODES: no enlarged lymph no dieudonne,spleen normal RECTAL EXAM: not examined PSYCH: alert, oriented ORAL CAVITY: normal, unremarkable
--- OUTSIDE RECORDS SUMMARY | 2024-08-17 07:01 | XMS_ITS ---
Author Organization Paul Vela III, MD Address [address] [place] [address] [place] [address] Care Team Providers Care Strawhat Sizer Name Role Phone Dr. Paul Vela III Primary Care Provider REASON FOR VISIT Rx Request Medications Medication SIG (Take, Route, Fr equency, Duration) Notes Start Date End Date Status Omeprazole 40 MG 1 capsule Orally Onc e a day for 30 days Active Social History Sex Assigned At : Social History Observation Description Sex Assigned At Female Encounters Encounter Location Date Provider Diagnosis Paul Vela III, MD [address] [place] [address] [place] [address] 08/17/2024 Paul Vela Plan Of Treatment Medication Medication Name Sig Start Date Stop Date Notes Omeprazole 40 MG 1 capsule Orally Once a day for 30 days Next Appt Details Provider Name:Paul Vela , 12/27/2024 09:30:00 AM, [address] [place] [address] [place], [address], Progress Notes * Amirah KEATINGOB:[birth year] (74 yo F)Acc No.[id number]:08/17/2024 Patient: Khalida PEOPLES :1950 A ge:74 Y S ex:Female Address:[address] [place] [address], [id number] * Refills Refill Omeprazole Capsule Delayed Release, 40 MG, Orally, 30 Capsule, 1 capsule, Once a day, 30 days, Refills=11 * true * Date: Generated for Jess carbajal/Darinel/[place] on: 06:07 AM EDT
--- OUTSIDE RECORDS SUMMARY | 2024-12-19 06:06 | XMS_ITS | Patient Health Record ---
Author Organization [facility] Address [address] [place] [address] Care Team Providers Care Weatherization Technician Name Role Phone Paul Vela MD Primary Care Provider Unavailab Patricia Tipton Unavailable [phone] Allergies No Known Allergies Results Component Value [...] 07/25/2015 Not-Taking Work Note . . . patient is disabled from work due to surgery until 09/18/16 Not-Taking Work Note . . . pt is disabled from work until 07/30/15 she may return to work Not-Taking glipiZIDE 5 MG 1 tablet 30 minutes before breakfast Orally Once a day Active Extra Depth Orthopedic Shoes (1 Pair) with Customized Heat Molded Multidensity Innersoles (3 Pair) as directed Dx: NIDDM (E11.9), Hammertoe Foot Deformity (M20.41,M20.42), Preulcerative Skin Lesion(s) (L85.1) 12/07/2024 Active Atorvastatin Calcium 20 MG 1 tablet Orally Once a day Active Valsartan 80 MG 1 tablet Orally Once a day Active Omeprazole 40 MG as directed Orally Active Levothyroxine Sodium Between 50m g 75mg Active Work Note . . . patient may return to full work duties on 10/07/16 09/29/2016 Not-Taking Metamucil Not-Taking Immunizations Vaccine Route Administration Date Status Comme nts Influenza Unknown 12/05/2021 Administered Influenza Unknown 12/19/2022 Administered Influenza Unknown 11/24/2023 Administered Influenza Unknown 11/24/2024 Administered COVID-19 Pfizer BioNTech Vaccine Unknown 01/30/2021 Administered 1st 05/01/2020 2nd 05/23/2020 Social History Tobacco Use: Social History Observation [...] ast year? No Points 0 Interpretation Negative Problems Problem Type SNOMED Code ICD Code Onset Dates Problem Status W/U Status Risk Notes Problem Acquired hammer toe of right foot (2371593665061 105) Other hammer toe(s) (acquired), right foot (M20.41) Active confirmed Problem Acquired hammer toe of left foot (2413755700721 103) Other hammer toe(s) (acquired), left foot (M20.42) Active confirmed Vital Signs Blood pressure diastolic 65 mm Hg 12/07/2024 Height 5ft 2in in 12/07/2024 Blood pressure systolic 125 mm Hg 12/07/2024 Weight 197 lbs 12/07/2024 BMI 36.03 kg/m2 12/07/2024 Procedures Procedure Date Ordered Date Performed Result Body Sit e 43496-XQLXMCY NAIL, 6 OR MORE 01/13/2024 N/A 35367-ECLSVFF NAIL, 6 OR MORE 06/06/2024 N/A 82896-KKBQLTM NAIL, 6 OR MORE 09/05/2024 N/A 37428-DQRDCTG NAIL, 6 OR MORE 12/07/2024 N/A Encounters Encounter Location Date Provider Diagnosis [facility] [place] [address] [place] [address] 01/13/2024 Patricia Sears Onychomycosis B35.1 ; Pain in right toe(s) M79.674 and Pain in left toe(s) M79.[address] [address] 06/06/2024 Patricia Sears Pain in right toe(s) M79.674 ; Onychomycosis B35.1 and Pain in left toe(s) M79.[address] [address] 09/05/2024 Patricia Sears Pain in right toe(s) M79.674 ; Onychomycosis B35.1 and Pain in left toe(s) M79.[address] [address] 12/07/2024 aPtricia Sears Other hammer toe(s) (acquired), right foot M20.41 ; Other hammer toe(s) (acquired), left foot M20.42 ; Pain in right toe(s) M79.674 ; Onychomycosis B35.1 and Pain in left toe(s) M79.675 Assessments Encounter Date Diagnosis (ICD Code) Assessment Notes Treatment Notes Treatment Clinical Notes Section Notes 01/13/2024 Pain in right toe(s) (ICD-10 - M79.674) 01/13/2024 Onychomycosis (ICD-10 - B35.1) 06/06/2024 Pain in right toe(s) (ICD-10 - M79.674) 09/05/2024 Pain in right toe(s) (ICD-10 - M79.674) 12/07/2024 Other hammer toe(s) (acquired), right foot (ICD-10 - M20.41) Patient Educated with: DIABETIC FOOT CARE INSTRUCTIONS.p df (DIABETIC FOOT CARE INSTRUCTIONS.p df) 12/07/2024 Other hammer toe(s) (acquired), left foot (ICD-10 - M20.42) 09/05/2024 Onychomycosis (ICD-10 - B35.1) 06/06/2024 Onychomycosis (ICD-10 - B35.1) 01/13/2024 Pain in left toe(s) (ICD-10 - M79.675) 09/05/2024 Pain in left toe(s) (ICD-10 - M79.675) 12/07/2024 Pain in right toe(s) (ICD-10 - M79.674) 06/06/2024 Pain in left toe(s) (ICD-10 - M79.675) 12/07/2024 Onychomycosis (ICD-10 - B35.1) 12/07/2024 Pain in left toe(s) (ICD-10 - M79.675) Plan Of Treatment Pending Test Test Name Order Date 43938-RDBUPEF NAIL, 6 OR MORE 01/13/2024 96060-POAHDBY NAIL, 6 OR MORE 06/06/2024 90108-BIRWNYR NAIL, 6 OR MORE 09/05/2024 63245-GXMCCNT NAIL, 6 OR MORE 12/07/2024 83512-JKCEZBX NAIL, 1-5 05/14/2015 56971-ENYYCXN NAIL, 1-5 07/19/2015 13201-ACXGGCZ NAIL, 1-5 09/04/2016 22945-Jmvwgbqq Plate 05/14/2015 74470-Iurjrjwv Plate 09/04/2016 72233-Amzzdscy Plate 07/19/2015 94461-HQE 07/09/2017 38823- Debride <25 sq cm 07/23/2017 93636- Debride <25 sq cm 08/13/2017 18501- Debride <25 sq cm 07/25/2015 94369- Debride <25 sq cm 08/02/2015 95862- Debride <25 sq cm 09/29/2016 44516- Nail Unit Biopsy 06/15/2017 Next Appt Details Provider Name:Patricia Morrisdorinda watt, 03/09/2025 02:45:00 PM, [address] [facility], [place], [address], Insurance Providers Payer Name Payer Address Payer Phone Subscriber Number Group Number Insured Name Patient Relationship to Insured Coverage Start Date Coverage End Date Medicare National Govt Sv[employer] Inc [address] [facility] [place] [address] [id number] Khalida Keating Self - patient is the insured 8 [facility] [address] [place] [address] [id number] Zuri Khalida Self - patient is the insured Medical (General) History Medical History History ICD Code Arthritis Cancer Cataracts Hiatal hernia Sciatica Lyme disease Neuropathy Thyroid disorder Reflux Chicken pox Measles Type II Diabetes Surgical History Surgery Date(Month/Year) cyst removal 1971 cancer 1999 cataract 2016 lymph nodes removed
--- OUTSIDE RECORDS SUMMARY | 2024-12-19 06:07 | XMS_ITS | Patient Health Record ---
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 Paul Vela III [...] 0.2 - 1.3 BLD Negative Negative - RBS/Hemocue glucose Reviewed date:01/25/2024 09:47:08 AM Interpretation: Performing Lab: Notes/Report: RBS 73 XR hand wrist LT Reviewed date:01/05/2024 02:05:50 PM Interpretation: Performing Lab: Notes/Report: [facility] [place] [address] XRay Report Signed Patient: Khalida Keating MR#: [id number] : 1950 Acct:[id number] Age/Sex: 73 / F ADM Date: 01/05/24 Loc: HO.HMGCX Attending Dr: Roxana Ya PA-C Ordering Physician: Roxana Ya PA-C Date of Service: 01/05/24 Procedure(s): XR hand wrist LT Accession Number(s): [id number] cc: Paul Vela MD; Roxana Ya PA-C EXAMINATION: XR HAND/WRIST, LEFT CLINICAL INFORMATION: Trauma COMPARISON: None available. TECHNIQUE: PA, lateral, oblique, and scaphoid views of the left hand and wrist. FINDINGS: No acute fracture or malalignment. 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 XR/XR hand wrist LT IMPRESSION: No acute fracture or malalignment. Severe osteoarthritis. Electronically signed by: Arnav Abdullahi MD 01/05/2024 10:53 AM EST Dictated By: Arnav Abdullahi MD Signed By: <Electronically signed by Arnav Abdullahi MD in OV> 01/05/24 1053 DD/ 0850 TD/TT: 01/05/24 0855 Spring Former: [facility] [address] [place] [address] [place] [address] XRay Report Signed Patient: Batres MR#: [id number] : 1950 Acct:[id number] Age/Sex: 73 / F ADM Date: 01/05/24 Loc: HO.HMGCX Attending Dr: Missy Ya PA-C Ordering Physician: Roxana Ya PA-C Date of Service: 01/05/24 Procedure(s): XR ramirez d wrist LT Accession Number(s): [id number] cc: Paul Vela MD; Roxana Ya PA-C EXAMINATION: XR HAND/WRIST, LEFT CLINICAL INFORMATION: Trauma COMPARISON: None available. TECHNIQUE: PA, lateral, oblique , and scaphoid views of the left hand and wrist. FINDINGS: No acute fracture or malalignment. 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 X R/XR hand wrist LT IMPRESSION: No acute fracture or malalignment. Severe osteoarthritis. Electronically farheen d by: Arnav Abdullahi MD 01/05/2024 10:53 AM [facility] Dictated By: Arnav Abdullahi MD Signed By: <Electronically signed by Arnav Abdullahi MD in OV> 01/05/24 1053 DD/ 0850 TD/TT: 01/05/24 0855 Spring Former: [facility] Complete Blood Count Auto Di ff Reviewed date:01/19/2024 08:43:24 AM Interpretation: Performing Lab:[facility], [address] [place] [phone] Notes/Report: White Blood Count 5.4 4.8-10.8 X10*3/uL Red Blood Count 4.10 4.20-5.50 X10*6/uL Hemoglobin 13.1 12.0-16.0 g/dl Hematocrit 38.8 37.0-47.0 % Mean Corpuscular Volume 94.6 80.0-98.0 fL Mean Corpuscular Hemoglobin 32.0 27.0-33.0 pg Mean Corpuscular HGB Conc 33.8 31.0-35.0 g/dl Red Cell Distribution Width 12.6 11.0-16.0 % Platelet Count 360 160-400 X10*3/uL Mean Platelet Volume 9.3 9.4-12.3 fL Neutrophils Percent Auto 43.4 45-73 % Imm Gran Pct Auto 0.6 0.0-0.4 % Lymphocytes Percent Auto 40.4 20-40 % Monocytes Percent Auto 10.2 2-11 % Eosinophils Percent Auto 4.1 0-4 % Basophils Percent Auto 1.3 0-2 % NRBC Pct Auto 0.0 0.0-0.2 /100WBC Neutrophils Absolute Auto 2.4 2.0-8.3 x10*3/u L Imm Gran Abs Auto 0.03 0.00-0.03 X10*3/uL Lymphocytes Absolute Auto 2.2 1.2-4.9 X10*3/u L Monocytes Absolute Auto 0.6 0.1-1.2 X10*3/uL Eosinophils Absolute Auto 0.2 0.0-0.4 X10*3/u L Basophils Absolute Auto 0.1 0.0-0.2 X10*3/uL NRBC Abs Auto 0.000 0.0-0.012 X10*3/uL Comprehensive [place]. Panel Fa st Reviewed date:01/19/2024 08:43:24 AM Interpretation: Performing Lab:[address] [address] Notes/Report: Sodium 134 135-145 mmol/L Potassium 4.6 3.3-5.1 mmol/L Chloride 102 96-108 mmol/L Carbon Dioxide 25 22-29 mmol/L Anion Gap 12 12-20 Blood Urea Nitrogen 18 9-16 mg/dL Creatinine 0.99 0.5-1.4 mg/dL Estimated Glomerular Filt Rate 55 Chronic Kidney Disease: Estimated GFR < 60 mL/min/1.73m2 Severe Kidney Disease: Estimated GFR < 15 mL/min/1.73m2 Glucose Fasting 114 60-99 mg/dL A fasting glucose from 100-125 mg/dl is considered impaired (pre-diabetes). Calcium 9.9 8.4-10.2 mg/dL Bilirubin Total 0.7 0.0-1.0 mg/dL Aspartate Amino Transferase 29 5-31 U/L Alanine Aminotransferase 26 0-31 U/L Total Protein 7.0 6.5-8.0 g/dL Albumin Level 4.4 3.5-5.0 g/dL Alkaline Phosphatase 72 39-117 U/L Microalbumin, Random Reviewed date:01/19/2024 08:43:24 AM Interpretation: Performing Lab:[facility], [address] [place] [phone] Notes/Report: Creatinine Urine 62.06 Microalbumin Urine 21.0 Microalbum/Creatinine Ratio Ur 33.8 <30 ug/mg cr Albumin/Creatinine Ratio Reference Ranges: Normal: < 30 ug/mg creatinine Microalbuminuria: 30 - 300 ug/mg creatinine Clinical Albuminuria: > 300 ug/mg creatinine Hemoglobin A1c Reviewed date:01/19/2024 08:43:24 AM Interpretation: Performing Lab:[address] [address] Notes/Report: Hemoglobin A1c % 6.1 <6.0 % Hemoglobin A1C Reference Range Adults: 4.8 - 6.0 % Non diabetic: < 6.0 % Goal: < 7.0 % Additional Action Suggested: > 8.0 % Note: Hemoglobin A1c results are invalid for patients with abnormal amounts of HbF. Blood transfusions may impact the HbA1c concentration in the patient sample. Estimated Average Glucose 128 eAG = Estimated average glucose which is %A1C expressed as average glucose, using the formula of the P1R-Gxkfwzj Average Glucose study (ADAG), Diabetes Care, Vol.31,#8, Sep. 2007 XR shoulder RT min 2V Reviewed date:02/17/2024 08:51:43 AM Interpretation: Performing Lab: Notes/Report: [address] [address] XRay Report Signed Patient: Khalida Keating MR#: [id number] : 1950 Acct:[id number] Age/Sex: 73 / F ADM Date: 01/25/24 Loc: MIC Attending Dr: Paul Vela MD Ordering Physician: Paul Vela MD Date of Service: 01/25/24 Procedure(s): XR shoulder RT min 2V Accession Number(s): [id number] cc: Paul Vela MD EXAMINATION: XR SHOULDER, RIGHT CLINICAL INFORMATION: ACUTE PAIN RIGHT SHOULDER COMPARISON: None available. TECHNIQUE: AP external rotation, Grashey, scapular Y, and axillary views of the right shoulder. 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 Glenoid humeral joint normal. Surrounding bone and soft tissues unremarkable. XR/XR shoulder RT min 2V IMPRESSION: Mild arthrosis of the right shoulder Electronically signed by: Trent Bautista MD 01/25/2024 03:12 PM EST Dictated By: Trent Bautista MD Signed By: <Electronically signed by Trent Bautista MD in OV> 01/25/24 1512 DD/ 1028 TD/TT: 01/25/24 1045 [place] Former: [facility] [address] [address] XRay Report Signed Patient: Batres MR#: [id number] : 1950 Acct:[id number] Age/Sex: 73 / F ADM Date: 01/25/24 Loc: HOPaulieXRAY Attending Dr: Paul Vela MD Ordering Physician: Paul Vela MD Date of Service: 01/25/24 Procedure(s): XR shoulder RT min 2V Accession Number(s): [id number] cc: Paul Vela MD EXAMINATION: XR SHOULDER, RIGHT CLINICAL INFORMATION: ACUTE PAIN RIGHT SHOULDER COMPARISON: None available. TECHNIQUE: AP external rotation , Grashey, scapular Y, and axillary views of the right shoulder. 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 Glenoid humeral join t normal. Surrounding bone and soft tissues unremarkable. X R/XR shoulder RT min 2V IMPRESSION: Mild arthrosis of th e right shoulder Electronically farheen d by: Trent Bautista MD 01/25/2024 03:12 PM [facility] Dictated By: Trent Bautista MD Signed By: <Electronically signed by Trent Bautista MD in OV> 01/25/24 1512 DD/ 1028 TD/TT: 01/25/24 1045 [place] Former: [facility] Complete Blood Count Auto Di ff Reviewed date:04/17/2024 09:03:48 AM Interpretation: Performing Lab:[facility], [address] [place] [phone] Notes/Report: White Blood Count 5.8 4.8-10.8 X10*3/uL Red Blood Count 4.18 4.20-5.50 X10*6/uL Hemoglobin 13.4 12.0-16.0 g/dl Hematocrit 39.3 37.0-47.0 % Mean Corpuscular Volume 94.0 80.0-98.0 fL Mean Corpuscular Hemoglobin 32.1 27.0-33.0 pg Mean Corpuscular HGB Conc 34.1 31.0-35.0 g/dl Red Cell Distribution Width 12.0 11.0-16.0 % Platelet Count 369 160-400 X10*3/uL Mean Platelet Volume 9.1 9.4-12.3 fL Neutrophils Percent Auto 43.2 45-73 % Imm Gran Pct Auto 0.3 0.0-0.4 % Lymphocytes Percent Auto 42.8 20-40 % Monocytes Percent Auto 9.0 2-11 % Eosinophils Percent Auto 3.3 0-4 % Basophils Percent Auto 1.4 0-2 % NRBC Pct Auto 0.0 0.0-0.2 /100WBC Neutrophils Absolute Auto 2.5 2.0-8.3 x10*3/u L Imm Gran Abs Auto 0.02 0.00-0.03 X10*3/uL Lymphocytes Absolute Auto 2.5 1.2-4.9 X10*3/u L Monocytes Absolute Auto 0.5 0.1-1.2 X10*3/uL Eosinophils Absolute Auto 0.2 0.0-0.4 X10*3/u L Basophils Absolute Auto 0.1 0.0-0.2 X10*3/uL NRBC Abs Auto 0.000 0.0-0.012 X10*3/uL Comprehensive [place]. Panel Fa st Reviewed date:04/17/2024 09:03:48 AM Interpretation: Performing Lab:[address] [address] Notes/Report: Sodium 137 135-145 mmol/L Potassium 4.6 3.3-5.1 mmol/L Chloride 103 96-108 mmol/L Carbon Dioxide 25 22-29 mmol/L Anion Gap 14 12-20 Blood Urea Nitrogen 14 9-16 mg/dL Creatinine 0.85 0.5-1.4 mg/dL Estimated Glomerular Filt Rate > 60 Chronic Kidney Disease: Estimated GFR < 60 mL/min/1.73m2 Severe Kidney Disease: Estimated GFR < 15 mL/min/1.73m2 Glucose Fasting 111 60-99 mg/dL A fasting glucose from 100-125 mg/dl is considered impaired (pre-diabetes). Calcium 9.8 8.4-10.2 mg/dL Bilirubin Total 0.7 0.0-1.0 mg/dL Aspartate Amino Transferase 29 5-31 U/L Alanine Aminotransferase 25 0-31 U/L Total Protein 7.4 6.5-8.0 g/dL Albumin Level 4.3 3.5-5.0 g/dL Alkaline Phosphatase 77 39-117 U/L Lipid Panel Reviewed date:04/17/2024 09:03:48 AM Interpretation: Performing Lab:[address] [place] [address] Notes/Report: Triglycerides 86 <150 mg/dL Desirable Triglyceride: less than 150 mg/dL Borderline High Triglyceride 150-199 mg/dL High Triglyceride: 200-499 mg/dL Very High Triglyceride: greater than or equal to 5OO mg/dL Cholesterol 138 <200 mg/dL Desirable Cholesterol: less than 200 mg/dL Borderline High Cholesterol: 200-239 mg/dL High Cholesterol: greater than 239 mg/dL LDL Cholesterol Calculated 65 <100 mg/dL Desirable LDL: less than 100 mg/dL Near Optimal/Above Optimal LDL: 110-129 mg/dL Borderline High LDL: 130-159 mg/dL High LDL: 160-189 mg/dL Very High LDL: greater than or equal to 190 mg/dL HDL Cholesterol 56 >40 mg/dL Desirable HDL: greater than 40 mg/dL Note: This HDL assay may give artificially low results in patients with liver disease. Hemoglobin A1c Reviewed date:04/17/2024 09:03:48 AM Interpretation: Performing Lab:[facility], [address] [place] [phone] Notes/Report: Hemoglobin A1c % 5.7 <6.0 % Hemoglobin A1C Reference Range Adults: 4.8 - 6.0 % Non diabetic: < 6.0 % Goal: < 7.0 % Additional Action Suggested: > 8.0 % Note: Hemoglobin A1c results are invalid for patients with abnormal amounts of HbF. Blood transfusions may impact the HbA1c concentration in the patient sample. Estimated Average Glucose 117 eAG = Estimated average glucose which is %A1C expressed as average glucose, using the formula of the N6L-Kmfwsww Average Glucose study (ADAG), Diabetes Care, Vol.31,#8, Sep. 2007 Complete Blood Count Auto Di ff Reviewed date:07/19/2024 01:57:02 PM Interpretation: Performing Lab:[facility], [address] [place] [phone] Notes/Report: White Blood Count 5.5 4.8-10.8 X10*3/uL Red Blood Count 4.18 4.20-5.50 X10*6/uL Hemoglobin 13.3 12.0-16.0 g/dl Hematocrit 39.5 37.0-47.0 % Mean Corpuscular Volume 94.5 80.0-98.0 fL Mean Corpuscular Hemoglobin 31.8 27.0-33.0 pg Mean Corpuscular HGB Conc 33.7 31.0-35.0 g/dl Red Cell Distribution Width 12.7 11.0-16.0 % Platelet Count 342 160-400 X10*3/uL Mean Platelet Volume 9.0 9.4-12.3 fL Neutrophils Percent Auto 47.2 45-73 % Imm Gran Pct Auto 0.2 0.0-0.4 % Lymphocytes Percent Auto 34.9 20-40 % Monocytes Percent Auto 11.3 2-11 % Eosinophils Percent Auto 5.3 0-4 % Basophils Percent Auto 1.1 0-2 % NRBC Pct Auto 0.0 0.0-0.2 /100WBC Neutrophils Absolute Auto 2.6 2.0-8.3 x10*3/u L Imm Gran Abs Auto 0.01 0.00-0.03 X10*3/uL Lymphocytes Absolute Auto 1.9 1.2-4.9 X10*3/u L Monocytes Absolute Auto 0.6 0.1-1.2 X10*3/uL Eosinophils Absolute Auto 0.3 0.0-0.4 X10*3/u L Basophils Absolute Auto 0.1 0.0-0.2 X10*3/uL NRBC Abs Auto 0.000 0.0-0.012 X10*3/uL Comprehensive [place]. Panel Fa st Reviewed date:07/19/2024 01:57:02 PM Interpretation: Performing Lab:[facility], [address] [place] [phone] Notes/Report: Sodium 139 135-145 mmol/L Potassium 4.8 3.3-5.1 mmol/L Chloride 105 96-108 mmol/L Carbon Dioxide 26 22-29 mmol/L Anion Gap 13 12-20 Blood Urea Nitrogen 14 9-16 mg/dL Creatinine 0.90 0.5-1.4 mg/dL Estimated Glomerular Filt Rate > 60 Chronic Kidney Disease: Estimated GFR < 60 mL/min/1.73m2 Severe Kidney Disease: Estimated GFR < 15 mL/min/1.73m2 Glucose Fasting 117 60-99 mg/dL A fasting glucose from 100-125 mg/dl is considered impaired (pre-diabetes). Calcium 9.8 8.4-10.2 mg/dL Bilirubin Total 0.7 0.0-1.0 mg/dL Aspartate Amino Transferase 32 5-31 U/L Alanine Aminotransferase 28 0-31 U/L Total Protein 7.1 6.5-8.0 g/dL Albumin Level 4.6 3.5-5.0 g/dL Alkaline Phosphatase 78 39-117 U/L Lipid Panel Reviewed date:07/19/2024 01:57:02 PM Interpretation: Performing Lab:[address] [address] Notes/Report: Triglycerides 126 <150 mg/dL Desirable Triglyceride: less than 150 mg/dL Borderline High Triglyceride 150-199 mg/dL High Triglyceride: 200-499 mg/dL Very High Triglyceride: greater than or equal to 5OO mg/dL Cholesterol 161 <200 mg/dL Desirable Cholesterol: less than 200 mg/dL Borderline High Cholesterol: 200-239 mg/dL High Cholesterol: greater than 239 mg/dL LDL Cholesterol Calculated 81 <100 mg/dL Desirable LDL: less than 100 mg/dL Near Optimal/Above Optimal LDL: 110-129 mg/dL Borderline High LDL: 130-159 mg/dL High LDL: 160-189 mg/dL Very High LDL: greater than or equal to 190 mg/dL HDL Cholesterol 55 >40 mg/dL Desirable HDL: greater than 40 mg/dL Note: This HDL assay may give artificially low results in patients with liver disease. Free T4 (Free Thyroxine) Reviewed date:07/19/2024 01:57:02 PM Interpretation: Performing Lab:[address] [address] Notes/Report: Free T4 (Free Thyroxine) 0.92 0.71-1.85 ng/dL Thyroid Stimulating Hormone Reviewed date:07/19/2024 01:57:02 PM Interpretation: Performing Lab:[address] [address] Notes/Report: Thyroid Stimulating Hormone 1.62 0.32-4.0 uIU/mL TSH 3rd Generation ([facility]) Microalbumin, Random Reviewed date:07/19/2024 01:57:02 PM Interpretation: Performing Lab:[address] [address] Notes/Report: Creatinine Urine 44.56 Microalbumin Urine 11.0 Microalbum/Creatinine Ratio Ur 24.6 <30 ug/mg cr Albumin/Creatinine Ratio Reference Ranges: Normal: < 30 ug/mg creatinine Microalbuminuria: 30 - 300 ug/mg creatinine Clinical Albuminuria: > 300 ug/mg creatinine Hemoglobin A1c Reviewed date:07/19/2024 01:57:02 PM Interpretation: Performing Lab:[facility], [address] [place] [phone] Notes/Report: Hemoglobin A1c % 5.7 <6.0 % Hemoglobin A1C Reference Range Adults: 4.8 - 6.0 % Non diabetic: < 6.0 % Goal: < 7.0 % Additional Action Suggested: > 8.0 % Note: Hemoglobin A1c results are invalid for patients with abnormal amounts of HbF. Blood transfusions may impact the HbA1c concentration in the patient sample. Estimated Average Glucose 117 eAG = Estimated average glucose which is %A1C expressed as average glucose, using the formula of the B5X-Rnyfnsx Average Glucose study (ADAG), Diabetes Care, Vol.31,#8, Sep. 2007 Reason For Referral Reason Consult and Treat Worsening Neuropathy Questioning worsening due to diabetes Diagnosis 1 Neuropathy (G62.9) Referral Organization Paul Vela III, MD Referring Provider First Name Paul Referring Provider Last Name Vela Referring Provider Speciality Internal M edicine Referred Provider Zayda Lewis Referred Provider Specialty Neurology General Notes Tonie Tracey 12/29/2023 11:29:46 AM > Patient is schedule to see Dr. Lewis. Letter mailed to patient Referral Priority Routine Referral Appointment Date 03/02/2024 Reason right shoulder pain Diagnosis 1 Acute pain of right shoulder (M25.511) Referral Organization Paul Vela III, MD Referring Provider First Name Paul Referring Provider Last Name Vela Referring Provider Speciality Internal M edicine Referred Organization [facility] nter Referred Provider [facility] er, [facility] Referred Address [address] [place] [id number], Referred Provider Specialty Physical The rapist General [...] time of this appt Referral Priority Routine Medications Medication SIG (Take, Route, Frequency, Duration) Notes Start Date End Date Status Atorvastatin Calcium 20 MG TAKE 1 TABLET BY MOUTH EVERY DAY Active Hydrocortisone (Perianal) 1 % 1 application Externally Twice a day 05/05/2022 Active Levothyroxine Sodium 50 MCG TAKE 1 TABLET BY MOUTH EVERY OTHER DAY Active Tylenol PM Extra Strength 500-25 MG 1 tablet at bedtime as needed Orally Once a day Active Aspir-Low 81 MG 1 tablet Orally Once a day Active Econazole Nitrate 1 % 1 application Externally Once a day 10/01/2020 Active FreeStyle Lite Test - use to check blood sugar daily In Vitro daily DX: E11.9 Diabetes 01/12/2024 Active Vitamin B12 Active Lancets - use to check blood sugar daily DX: E11.9 Diabetes 01/12/2024 Active Vitamin D3 Active Valsartan 80 MG TAKE 1 TABLET BY MOUTH EVERY DAY FOR 90 DAYS Active glipiZIDE 5 MG 1 tablet 30 minutes before breakfast Orally Once a day 12/23/2023 Active FreeStyle Lite w/Device to be use to check blood sugar daily DX: E11.9 Diabetes 01/12/2024 Active Ozempic (0.25 or 0.5 MG/DOSE) 2 MG/3ML 0.25 mg Subcutaneous weekly 12/23/2023 Active Gauze Pads 2 X2 use to check blood sugar daily DX: E11.9 Diabetes 01/12/2024 Active Levothyroxine Sodium 75 MCG TAKE 1 TABLET BY MOUTH EVERY OTHER DAY Active Omeprazole 40 MG 1 capsule Orally Once a day for 30 days Active Alcohol Pads 70 % use to check blood sugar daily DX: E11.9 Diabetes 01/12/2024 Active Immunizations Vaccine Route Administration Date Status Comme nts Influenza Unknown 12/19/2008 Administered Influenza Unknown 11/24/2011 Administered Influenza no Preserv 3 and > Unknown 11/07/2018 Administered PPV 23 Unknown 01/19/2019 Administered Influenza no Preserv 3 and > Unknown 11/09/2019 Administered COVID- 19 Vaccine Unknown 05/01/2020 Administered Pfize r COVID- 19 Vaccine Unknown 05/23/2020 Administered Pfize r 2nd dose Influenza, quad IM Intramuscular 12/04/2020 Administered PCV13 Unknown 01/25/2018 Administered Influenza no Preserv 3 and > Unknown 12/05/2015 Administered Influenza no Preserv 3 and > Unknown 11/30/2017 Administered COVID PFIZER Unknown 01/30/2021 Administered Zostavax Unknown 02/05/2016 Administered COVID PFIZER Unknown 05/01/2020 Administered Influenza no Preserv 3 and > Unknown 11/28/2021 Administered COVID PFIZER Unknown 05/23/2020 Administered Influenza no Preserv 3 and > Unknown 12/14/2014 Administered Influenza, quad IM Intramuscular 12/19/2022 Administered COVID Moderna Bivalent Unknown 02/03/2022 Administered Fluzone High-Dose (HD-IIV3) Unknown 11/30/2017 Administered Fluzone High-Dose (HD-IIV3) Unknown 11/07/2018 Administered Influenza Vaccine Afluria IM Intramuscular 12/23/2023 Administered Social History Tobacco Use: Social History [...] Problem Status W/U Status Risk Notes Problem 4209159 Former smoker (Z87.891) Active confirmed She is highly motivated not to smoke further. She has a plan to prrevent relapse and times of stress and illness. Problem Hyperlipidemia (03754334) Hyperlipidemia (E78.5) Active confirmed Her lipids are stable at this time and in the normal range. Current therapy was continued. I recommended aggressive weight loss, sodium restriction with a diet low animal fat. Problem 46383428 Hypothyroidism (E03.9) Active confirmed Comprehensive blood work including thyroid function tests have been ordered. No change in her regimen was necessary today. She appears to be euthyroid. Problem DM - Diabetes mellitus (59392006) DM (diabetes mellitus) (E11.9) Active confirmed Problem 332864255 GERD (gastroesophage al reflux disease) (K21.9) Active confirmed Her reflux is well controlled with medications. Problem 72461413 Essential hypertension (I10) Active confirmed Her blood pressure is controlled on her current regimen of lisinopril and valsartan, which was continued without change today. Problem Osteopenia (065936549) Osteopenia (M85.80) Active confirmed She is asymptomatic from this process. A bone density test was ordered today. Problem Neuropathy (897460111) Neuropathy (G62.9) Active confirmed Problem 09155413 Cataracts, bilateral (H26.9) Active confirmed Problem 68449691 Carpal tunnel syndrome (G56.00) Active confirmed She continues to have occasional wrist pain. She says it is not severe enough at this time to consider surgery. Problem 58078446 Hiatal hernia (K44.9) Active confirmed Some of these symptoms may be the hiatal hernia combined with inflammation. Esophagus. If she does not feel better soon . She will be referred to GI. Problem 419282517 Obesity (BMI 35.0-39.9 without comorbidity) (E66.01) Active confirmed Her weight has been stable. She has lost 1 pound. We discussed her diet and nutrition. We made a plan to lose weight at a rate of one half of a pound per week. Problem 528290332 Osteoarthritis (M19.90) Active confirmed She has occasional joint pain in his knees, shoulders and hands. She is able to conduct all of the activities of daily living. She describes the arthritis as a nuisance. It is worse in her knees. Problem 569027501 Barretts esophagus (K22.70) Active confirmed She is up-to-date with endoscopy. We reviewed the necessity for this and the importance of continued surveillance. Problem 356243838 History of cancer of left breast (Z85.3) Active confirmed There is no sign of recurrent cancer at this time. She reports a sister with breast cancer. She was offered genetic testing and will consider it. No decision was made today. Problem 92626396 Hearing loss in right ear (H91.91) Active confirmed Her hearing loss is stable and well compensated. She is mild hearing loss in the left ear as well. Problem 374827518 History of skin cancer (Z85.828) Active confirmed Problem Pure hypercholesterolemi a (562753825) Hyperlipidemia type II (E78.01) Active confirmed Her lipids are controlled at this time. Current therapy was continued without change. Problem 645882595 Type 2 diabetes mellitus without complication, without long-term current use of insulin (E11.9) Active confirmed She has been compliant with therapy and her hemoglobin A1c is 5.7. We discussed weight loss. She has lost 5 pounds. No change in her therapy was made. Problem Osteoporosis (08629695) Osteoporosis, unspecified (M81.0) Active confirmed Problem 163746469 History of bilateral mastectomy (Z90.13) Active confirmed The bilateral mastectomy sites are free relapse. No sign of recurrent breast cancer was noted today. Vital Signs Heart Rate 73 /min 07/26/2024 Temperature 97.7 degrees Fahrenheit 07/26/2024 Blood pressure diastolic 74 mm Hg 07/26/2024 Height 62 in 07/26/2024 Blood pressure systolic 140 mm Hg 07/26/2024 Weight 186 lbs 07/26/2024 BMI 34.02 kg/m2 07/26/2024 Encounters Encounter Location Date Provider Diagnosis Paul Vela III, MD [address] [place] [address] [place] [address] 12/23/2023 Paul Vela Essential hypertensi on I10 ; Type 2 diabetes mellitus without complication, without long-term current use of insulin E11.9 ; Hyperlipidemia type II E78.01 ; Encounter for immunization Z23 ; Former smoker Z87.891 ; Obesity (BMI 35.0-39.9 without comorbidity) E66.01 ; Hearing loss in right ear H91.91 ; Barretts esophagus K22.70 and History of cancer of left breast Z85.3 Paul Vela III, MD [address] [place] [address] [place] [address] 01/25/2024 Paul Vela Type 2 diabetes zenaida itus without complication, without long-term current use of insulin E11.9 ; Essential hypertension I10 ; Obesity (BMI 35.0-39.9 without comorbidity) E66.01 and Acute pain of right shoulder M25.511 Paul Vela III, MD [address] [place] [address] [place] [address] 04/25/2024 Paul Vela Type 2 diabetes zenaida itus without complication, without long-term current use of insulin E11.9 ; Essential hypertension I10 ; Obesity (BMI 35.0-39.9 without comorbidity) E66.01 ; Hypothyroidism E03.9 ; Hearing loss in right ear H91.91 ; History of cancer of left breast Z85.3 ; History of bilateral mastectomy Z90.13 and Former smoker Z87.891 Paul Vela III, MD [address] [place] [address] [place] [id number] 07/26/2024 Paul Vela Type 2 diabetes zenaida [...] of bilateral mastectomy Z90.13 and Hyperlipidemia E78.5 Paul Vela III, MD [address] [place] [address] [place] [id number] 12/31/2023 Paul Vela III, MD [address] [place] [address] [place] [id number] 01/08/2024 Paul Vela III, MD [address] [place] [address] [place] [id number] 01/11/2024 Paul Vela Type 2 diabetes zenaida itus without complication, without long-term current use of insulin E11.9 Paul Vela III, MD [address] [place] [address] [place] [id number] 08/17/2024 Paul Vela Assessments Encounter Date Diagnosis (ICD Code) Assessment Notes Treat ment Notes Treatment Clinical Notes 01/11/2024 Type 2 diabetes mellitus without complication, without long-term current use of insulin (ICD-10 - E11.9) 12/23/2023 Essential hypertension (ICD-10 - I10) Her [...] which was continued without change today. 01/25/2024 Type 2 diabetes mellitus without complication, [...] which was continued without change today. 04/25/2024 Type 2 diabetes mellitus without complication, [...] which was continued without change today. 07/26/2024 Type 2 diabetes mellitus without complication, [...] time. Current therapy was continued without change. 01/25/2024 Obesity (BMI 35.0-39.9 without comorbidity) (ICD-10 - E66.01) She has lost 5 pounds in her body mass index is 34. We discussed her weight loss strategy. She will continue to lose weight at a rate of one half of a pound per week. 04/25/2024 Obesity (BMI 35.0-39.9 without comorbidity) (ICD-10 - E66.01) Her weight has been stable. She has gained 1 pound. We discussed her diet and nutrition. We made a plan to lose weight at a rate of one half of a pound per week. 07/26/2024 History of cancer of left breast (ICD-10 - Z85.3) There is no sign of recurrent cancer at this time. She reports a sister with breast cancer. She was offered genetic testing and will consider it. No decision was made today. 12/23/2023 Encounter for immunization (ICD-10 - Z23) In today without complication. 01/25/2024 Acute pain of right shoulder (ICD-10 - M25.511) At her request she has been referred for physical therapy. She will avoid heavy lifting. She will use Tylenol and ibuprofen. An x-ray was ordered. If necessary she will be sent to orthopedics. 04/25/2024 Hypothyroidism (ICD-10 - E03.9) Comprehensive blood work including thyroid function tests have been ordered. No change in her regimen was necessary today. She appears to be euthyroid. 07/26/2024 Hearing loss in righ t ear (ICD-10 - H91.91) Her hearing loss is stable and well compensated. She is mild hearing loss in the left ear as well. 12/23/2023 Former smoker (ICD-1 0 - Z87.891) She is highly motivated not to smoke further. She has a plan to prrevent relapse and times of stress and illness. 04/25/2024 Hearing loss in righ t ear [...] half of a pound per week. 12/23/2023 Obesity (BMI 35.0-39.9 without comorbidity) (ICD-10 - E66.01) Her BMI is 34.9. We discussed diet and nutrition. We made a weight loss strategy to lose weight at a rate of one half of a pound per week. 04/25/2024 History of cancer of left breast (ICD-10 - Z85.3) There is no sign of recurrent cancer at this time. She reports a sister with breast cancer. She was offered genetic testing and will consider it. No decision was made today. 07/26/2024 Hypothyroidism (ICD-10 - E03.9) Comprehensive blood work including thyroid function tests have been ordered. No change in her regimen was necessary today. She appears to be euthyroid. 12/23/2023 Hearing loss in righ t ear (ICD-10 - H91.91) Her hearing loss is stable and well compensated. She is mild hearing loss in the left ear as well. 04/25/2024 History of bilateral mastectomy (ICD-10 - Z90.13) The bilateral mastectomy sites are free relapse. No sign of recurrent breast cancer was noted today. 07/26/2024 Osteoarthritis (ICD-10 - M19.90) She has occasional joint pain in his knees, shoulders and hands. She is able to conduct all of the activities of daily living. She describes the arthritis as a nuisance. It is worse in her knees. 12/23/2023 Barretts esophagus (ICD-10 - K22.70) She is up-to-date with endoscopy. We reviewed the necessity for this and the importance of continued surveillance. 04/25/2024 Former smoker (ICD-1 0 - Z87.891) She is highly motivated not to smoke further. She has a plan to prrevent relapse and times of stress and illness. 07/26/2024 Carpal tunnel syndrome (ICD-10 - G56.00) She continues to have occasional wrist pain. She says it is not severe enough at this time to consider surgery. 12/23/2023 History of cancer of left breast (ICD-10 - Z85.3) There is no sign of recurrent cancer at this time. She reports a sister with breast cancer. She was offered genetic testing and will consider it. No decision was made today. 07/26/2024 Hiatal hernia (ICD-1 0 - K44.9) [...] diet low animal fat. Plan Of Treatment Pending Test Test Name Order Date URINE DIP STICK 12/17/2021 PROFILE, FASTING (COMPREHENSIVE METABOLI C) 12/04/2020 PROFILE, FASTING (COMPREHENSIVE METABOLI C) 07/26/2024 PROFILE, FASTING (COMPREHENSIVE METABOLI C) 12/23/2023 PROFILE, FASTING (COMPREHENSIVE METABOLI C) 10/01/2020 PROFILE, FASTING (COMPREHENSIVE METABOLI C) 10/20/2023 PROFILE, FASTING (COMPREHENSIVE METABOLI C) 12/17/2021 PROFILE, FASTING (COMPREHENSIVE METABOLI C) 04/27/2023 PROFILE, FASTING (COMPREHENSIVE METABOLI C) 09/10/2022 PROFILE, FASTING (COMPREHENSIVE METABOLI C) 08/01/2022 PROFILE, FASTING (COMPREHENSIVE METABOLI C) 04/25/2024 PROFILE, FASTING (COMPREHENSIVE METABOLI C) 03/15/2020 PROFILE, FASTING (COMPREHENSIVE METABOLI C) 03/24/2023 PROFILE, FASTING (COMPREHENSIVE METABOLI C) 12/14/2019 PROFILE, FASTING (COMPREHENSIVE METABOLI C) 01/25/2024 PROFILE, FASTING (COMPREHENSIVE METABOLI C) 02/25/2019 PROFILE, RANDOM (COMPREHENSIVE METABOLIC ) 03/06/2021 PROFILE, RANDOM (COMPREHENSIVE METABOLIC ) 12/24/2018 PROFILE, RANDOM (COMPREHENSIVE METABOLIC ) 07/29/2021 HEMOGLOBIN A1C (GLYCOHEMOGLOBIN) 022 HEMOGLOBIN A1C (GLYCOHEMOGLOBIN) 021 HEMOGLOBIN A1C (GLYCOHEMOGLOBIN) 022 HEMOGLOBIN A1C (GLYCOHEMOGLOBIN) 022 LIPID PANEL 03/15/2020 LIPID PANEL 12/14/2019 LIPID PANEL 02/25/2019 LIPID PANEL 07/29/2021 LIPID PANEL 10/20/2023 LIPID PANEL 09/10/2022 LIPID PANEL 08/01/2022 FREE T4 (FT4) 03/15/2020 FREE T4 (FT4) 12/14/2019 FREE T4 (FT4) 02/25/2019 FREE T4 (FT4) 10/01/2020 FREE T4 (FT4) 12/04/2020 FREE T4 (FT4) 12/17/2021 FREE T4 (FT4) 08/01/2022 TSH (THYROID STIMULATING HORMONE) 2023 TSH (THYROID STIMULATING HORMONE) 2022 TSH (THYROID STIMULATING HORMONE) 2024 TSH (THYROID STIMULATING HORMONE) 2021 TSH (THYROID STIMULATING HORMONE) 2020 TSH (THYROID STIMULATING HORMONE) 2023 TSH (THYROID STIMULATING HORMONE) 2019 TSH (THYROID STIMULATING HORMONE) 2019 TSH (THYROID STIMULATING HORMONE) 2020 TSH (THYROID STIMULATING HORMONE) 2023 TSH (THYROID STIMULATING HORMONE) 2020 TSH (THYROID STIMULATING HORMONE) 2021 TSH (THYROID STIMULATING HORMONE) 2024 CPK 12/24/2018 MICROALBUMIN, RANDOM 07/29/2021 CBC w DIFF 12/17/2021 CBC w DIFF 01/25/2024 CBC w DIFF 08/01/2022 CBC w DIFF 07/26/2024 CBC w DIFF 03/06/2021 CBC w DIFF 12/24/2018 CBC w DIFF 03/15/2020 CBC w DIFF 12/14/2019 CBC w DIFF 07/29/2021 CBC w DIFF 02/25/2019 CBC w DIFF 10/01/2020 CBC w DIFF 10/20/2023 CBC w DIFF 12/04/2020 CBC w DIFF 09/10/2022 SED RATE (ESR) 12/24/2018 URINALYSIS (UA) 12/19/2022 LYME DISEASE IgG/IgM WB 07/29/2021 Echocardiogram 07/12/2020 PFT with DLCO and Blood Gases 07/12/2020 CBC WITH AUTO DIFF 04/25/2024 CBC WITH AUTO DIFF 03/24/2023 CBC WITH AUTO DIFF 12/23/2023 CBC WITH AUTO DIFF 04/27/2023 Lipid Panel 12/04/2020 Lipid Panel 12/17/2021 Lipid Panel 01/25/2024 Lipid Panel 04/25/2024 Lipid Panel 07/26/2024 Lipid Panel 04/27/2023 Lipid Panel 10/01/2020 Vitamin B12 07/26/2024 Vitamin D 25-OH Total 07/26/2024 Free T4 (Free Thyroxine) 04/27/2023 Free T4 (Free Thyroxine) 07/26/2024 Free T4 (Free Thyroxine) 04/25/2024 Free T4 (Free Thyroxine) 10/20/2023 Microalbumin, Random 12/17/2021 Microalbumin, Random 07/26/2024 Microalbumin, Random 12/23/2023 Microalbumin, Random 04/25/2024 Hemoglobin A1c 01/25/2024 Hemoglobin A1c 07/26/2024 Hemoglobin A1c 12/23/2023 Hemoglobin A1c 04/25/2024 Next Appt Details Provider Name:Paul Bowen Dane , 12/27/2024 09:30:00 AM, [address] [place] [address] [facility], [place], [address], Insurance Providers Payer Name Payer Address Payer Phone Subscriber Number Group Number Insured Name Patient Relationship to Insured Coverage Start Date Coverage End Date MEDICARE NGS [address] [place] [phone] [id number] Khalida Keating Self - patient is the insured [facility] [address] [place], [place] [id number] [phone] [id number] Khalida Keating Self - patient is the insured Medical (General) History Medical History History ICD Code GERD (gastroesophageal reflux disease) 5 30.81 History of left breast cancer V10.3 Deafness in right ear 389.9 Obesity 278.00 IFG (impaired fasting glucose) 790.21 Cataract 366.9 Arthritis 716.90 Tendonitis 726.90 Carpal tunnel syndrome, right upper limb G56.01 H/O hiatal hernia Z87.19 Bursitis of both hips 726.5 hyperlipidemia hypothyroid onset 1999 Peerz's esophagus Surgical History Surgery Date(Month/Year) No history left eye lazer treatment 06/2020 Colonoscopy 11/2019 biopsy on head 08/2019 colonoscopy, Dr. Coy, onetubular adeno ma 2014 EGD with biopsy 01/12/2013 EGD with biopsy 11/29/2009 Colonoscopy; EGD with biopsy 05/09/2009 Colonoscopy 12/15/2003 Stage 2 reconstruction of right breast; saline implant 04/03/2000 Stage 2 reconstruction of left breast; s jeff implant 10/18/1999 [place] [facility] [place]/13/1999 [place] [facility] [place] 03/10/1999 excision and revision of scars left leg 1988 cyst/ abscess on back 1997 pilonidial cyst 1970 Hospitalization History Reason Date(Month/Year) No history
--- OUTSIDE RECORDS SUMMARY | 2024-12-19 06:07 | XMS_ITS | Patient Health Record ---
Author Organization [facility] Address [address] [place] [address] Care Team Providers Care Bee Worker Name Role Phone Paul Vela MD Primary Care Provider Unavailab Paul Rios Unavailable [phone] Allergies No Known Allergies Reason For Referral [...] Problem Status W/U Status Risk Notes Problem Screening for malignant neoplasm of colon (206359500) Encounter for screening for malignant neoplasm of colon (Z12.11) Active confirmed Problem History of adenomatous polyp of colon (163872565) History of adenomatous polyp of colon (Z86.010) Active confirmed Problem Epigastric pain (41554110) Abdominal pain, epigastric (R10.13) Active confirmed Problem Preprocedural examination (306666098222128) Preprocedural examination (Z01.818) Active confirmed Problem Gastroesophageal reflux disease (717599625) Gastroesophageal reflux disease, esophagitis presence not specified (K21.9) Active confirmed Problem Hiatal hernia (81850023) Hiatal hernia (K44.9) Active confirmed Problem Rectal pain (92180556) Rectal pain (K62.89) Active confirmed Problem Constipation (38350118) Constipation, unspecified constipation type (K59.00) Active confirmed Problem Gastroesophageal reflux disease (038768950) Gastroesophageal reflux disease, unspecified whether esophagitis present (K21.9) Active confirmed Plan Of Treatment Pending Test Test Name Order Date US ABD 12/28/2020 Future Test Test Name Order Date COLONOSCOPY 08/03/2014 COLONOSCOPY 10/13/2019 Next Appt Details Provider Name:Paul Coy , 03/01/2025 01:20:00 PM, [address] [facility], [address], [place], [address], Insurance Providers Payer Name Payer Address Payer Phone Subscriber Number Group Number Insured Name Patient Relationship to Insured Coverage Start Date Coverage End Date MEDICARE OF [place] [address] [place] [address] [phone] [id number] TAYLOR DAVIS Self - patient is the insured [facility] [address] [place], [place] [id number] TAYLOR DAVIS Self - patient is the [...] EGD in 12/2012 with no esophagitis nor Preez's esophagus Perez's Esophagus as above Deafness in the right ear Lyme's Disease Hyperlipidemia Hypothyroidism Diet-controlled DM Breast cancer in 1998 treated with bilat eral mastectomy and chemotherapy Denies IA,CVA,Lung disease,renal disease Colonoscopy in 10/2014 with 2 small tubul ar adenomas removed Negative colonoscopy on 11/2019 Surgical History Surgery Date(Month/Year) Knee surgery Bilateral mastectomy-had a left-sided br east cancer Pilonidal cyst excision Cataracts
[2024-12-19 10:28] LABS: MANUAL DIFF FLAG NO
[2024-12-19 10:50] LABS: Hematocrit 40.5 % (37.0-47.0); Hemoglobin 13.3 g/dl (12.0-16.0); Imm Gran Abs Auto 0.03 X10*3/uL (0.00-0.03); Imm Gran Pct Auto 0.5 % (0.0-0.4); Lymphocytes Absolute Auto 2.3 X10*3/uL (1.2-4.9); Mean Corpuscular HGB Conc 32.8 g/dl (31.0-35.0); Mean Corpuscular Hemoglobin 31.2 pg (27.0-33.0); Mean Corpuscular Volume 95.1 fL (80.0-98.0); NRBC Abs Auto 0.000 X10*3/uL (0.0-0.012); NRBC Pct Auto 0.0 /100WBC (0.0-0.2); Platelet Count 377 X10*3/uL (160-400); Red Blood Count 4.26 X10*6/uL (4.20-5.50); White Blood Count 6.4 X10*3/uL (4.8-10.8)
[2024-12-19 11:06] LABS: Alanine Aminotransferase 24 U/L (0-31); Albumin Level 4.8 g/dL (3.5-5.0); Alkaline Phosphatase 79 U/L (39-117); Anion Gap 13 (12-20); Aspartate Amino Transferase 28 U/L (5-31); Blood Urea Nitrogen 13 mg/dL (9-16); Calcium 9.8 mg/dL (8.4-10.2); Carbon Dioxide 24 mmol/L (22-29); Chloride 106 mmol/L (96-108); Cholesterol 173 mg/dL (<200); Estimated Glomerular Filt Rate > 60; HDL Cholesterol 56 mg/dL (>40); Potassium 5.0 mmol/L (3.3-5.1); Sodium 138 mmol/L (135-145); Total Protein 7.3 g/dL (6.5-8.0); Triglycerides 137 mg/dL (<150)
[2024-12-19 11:23] LABS: Vitamin B12 305 pg/mL (200-900)
[2024-12-19 11:28] LABS: Free T4 (Free Thyroxine) 0.98 ng/dL (0.71-1.85); Thyroid Stimulating Hormone 2.15 uIU/mL (0.32-4.0)
[2024-12-19 13:50] LABS: Microalbum/Creatinine Ratio Ur 50.4 ug/mg cr (<30)
== END 2024-12-19 06:02 | disposition home or self-care (01) ==
LOC: HO.HMGCLDS 06:01
PROVIDERS: PCP Internal Medicine Medical Oncology; Visit Provider Internal Medicine Medical Oncology
DX: E11.9 Type 2 diabetes mellitus without complications (principal); I10 Essential (primary) hypertension; E03.9 Hypothyroidism, unspecified; M81.0 Age-related osteoporosis without current pathological fracture; E53.8 Deficiency of other specified B group vitamins; E78.49 Other hyperlipidemia
CPT/HCPCS: 36415; 80053; 80061; 82043; 82306; 82570; 82607; 83036; 84439; 84443; 85025